=== PATIENT | male | born 1950 | race Caucasian/White ===

== ENCOUNTER 2017-05-05 06:03 | Day surgery (SDC) | payer BC ==
[2017-05-03 11:18] VITALS: BMI 25.0
[~2017-05-05 06:03] MED LIST: HEPARIN SODIUM,PORCINE 5,000 UNIT/ML 1 ML VIAL SQ ONE; ceFAZolin 2 GM in SODIUM CHLORIDE 0.9% 100 ML IVPB ONE
[2017-05-05] MEDS ORDERED: ONDANSETRON 4 MG/2 ML VIAL IVP ONE (06:19)
[2017-05-05] MEDS ORDERED: DEXAMETHASONE SOD PHOSPHATE 10 MG/ML 1 ML VIAL IV ONE (06:19)
[2017-05-05] MEDS ORDERED: MIDAZOLAM 2 MG/2 ML VIAL IV PRN (06:19)
[2017-05-05] MEDS ORDERED: HYDROmorphone 1 MG/ML 1 ML SYRINGE IVP PRN (06:19)
[2017-05-05 06:22] VITALS: TEMP 98
[2017-05-05] MEDS: LACTATED RINGERS 1,000 ML IV SCH ×2 (06:39→13:20)
[2017-05-05] MEDS ORDERED: LIDOCAINE 1% 20 ML VIAL (10MG/ML) FOR IV START INTRADERMA ONE (06:48)
[2017-05-05] MEDS ORDERED: PROPOFOL 10 MG/ML 20 ML VIAL IV ONE (07:38)
[2017-05-05] MEDS ORDERED: fentaNYL (PF) 50 MCG/ML 2 ML AMP ONE (07:38)
[2017-05-05] MEDS ORDERED: GLYCOPYRROLATE 0.2 MG/ML 2 ML VIAL ONE (07:38)
[2017-05-05] MEDS ORDERED: NEOSTIGMINE 1 MG/ML 10 ML VIAL ONE (07:38)
[2017-05-05] MEDS ORDERED: MIDAZOLAM 2 MG/2 ML VIAL ONE (07:38)
[2017-05-05] MEDS ORDERED: VECURONIUM 10 MG VIAL IV ONE (07:38)
[2017-05-05] MEDS ORDERED: SUCCINYLCHOLINE CHLORIDE 100 MG/5 ML SYR IV ONE (07:38)
[2017-05-05] MEDS ORDERED: LIDOCAINE 1% INJ 10MG/ML (20 ML MDV) ONE (07:38)
[2017-05-05] MEDS ORDERED: BUPIVACAINE-EPI 0.5%-1:200,000 10 ML VIAL SQ ONE (08:22)
[2017-05-05] MEDS ORDERED: LACTATED RINGERS 1,000 ML IV ONE ×2 (10:24→15:18)
[2017-05-05 11:03] VITALS: RESP 16
[2017-05-05 15:58] VITALS: BP 133/75; PULSE 55
--- NOTE | 2017-05-08 12:06 | P.OP ---
Date of Procedure: 05/05/17 Preoperative Diagnosis: Recurrent left inguinal hernia Postoperative Diagnosis: Recurrent left inguinal hernia -sliding type containing sigmoid colon Right indirect inguinal hernia Procedure(s) Performed: Robotic assisted laparoscopic bilateral inguinal hernia repair with mesh Implants: Parietex Progrip 10x15 cm right and left Anesthesia: BECKIE, local Surgeon: Jacki Mejia Estimated Blood Loss (ml): 10 Pathology: none sent Condition: stable Disposition: PACU Indications for Procedure: 67 years old male presents with left recurrent inguinal hernia. Prior history of laparoscopic left inguinal hernia repair. Hernia is reducible. Patient unsure about prior hernia repair was with mesh or not. Operative Findings: Recurrent large left inguinal hernia containing sigmoid colon. No mesh could be identified. Smaller right indirect inguinal hernia Description of Procedure: The patient was brought to the operating room and placed in supine position. General anesthesia with endotracheal intubation was performed as per anesthesia team. Both arms were tucked against the abdominal wall and a shunt was positioned in lithotomy using yellowfin stirrups. A lloyd catheter was inserted under sterile aseptic precautions. Chlorhexidine was used to prep the skin followed by application of sterile drapes and Ioban dressing. A timeout was performed to verify correct patient, correct procedure and correct side. Patient was confirmed to receive perioperative IV antibiotics, subcutaneous heparin 5000 units and bilateral SCDs were placed. A 2 mm skin incision was made in the left subcostal area and Veress needle was inserted to establish pneumoperitoneum to a pressure of 15 mmHg. A 1.5 cm supraumbilical incision was made which was deepened through the subcutaneous tissue . Two additional 8 mm skin incisions were made on either side of the midline approximately 8 cm away. A 5 mm 30 laparoscope was used to enter the peritoneum using direct Optiview technique. A 12 mm robotic trocar was inserted in the supraumbilical area and 8 mm robotic trocars were inserted on either side of the midline. The patient was placed in Trendelenburg position and the robot was brought in between the legs. The robotic arms including the camera arm were docked on the trocars. The robotic prograsp and monopolar scissors were introduced via arm 1 and 2 respectively. Upon inspection of the peritoneal cavity, bilateral indirect hernias identified. The right hernia contained incarcerated sigmoid colon which was reduced using gentle traction and countertraction. The gomez anatomical landmarks including the pubic symphysis, median and medial umbilical ligaments and bilateral epigastric vessels were identified. Attention was focused on the left side first. Using monopolar scissors a peritoneal flap was created extending medially from the median umbilical ligament and laterally to the direct hernia space. Using gentle traction and countertraction the flap was developed posteriorly. Loose fibrofatty tissue was bluntly dissected. Medially the dissection was carried along the Mitchell's ligament till pubic tubercle was identified. Care was taken to stay away from the urinary bladder. Dissection was carried out to leave the epigastric vessels against the anterior abdominal wall and laterally beyond the hernia defect. The indirect hernia sac was completely reduced. The iliofemoral vessels were identified. The peritoneal reflection overlying the spermatic cord was also dissected off. Care was taken not to injure any gonadal vessels or spermatic cord. Enough inferior dissection was carried out 2 cm below the hernia defect. No direct hernia noted. No evidence of prior mesh placement. The peritoneum was friable and tore at various points which were all repaired using 3-0 Vicryl Attention was then focused on the right side where similar dissection was performed to identify the above-mentioned gomez anatomical landmarks. Gentle traction and countertraction helped in reduction of the hernia sac. No bleeding was encountered. The iliofemoral vessels, spermatic cord and vas deferens were protected at all times. Right inferior epigastric artery had a branch looping on the medial aspect which was ligated using surgical clips Oxyntix progrip mesh 10x15 cm was rolled and introduced through the 8mm camera port. The right mesh was placed in the preperitoneal cavity with green portion overlying the pubic tubercle . The mesh was rolled upwards so that the mesh covered the direct , indirect inguinal hernia and the femoral hernia space without any kinks or folds. Similarly left progrip mesh was rolled and introduced through the 8mm camera port and secured over the right direct, indirect and femoral hernia space. The peritoneal flap was then sutured to the cut edge of the peritoneum using continuous 2-0 V lock sutures. The hernia sacs were completely reduced and the mesh lay flat without any kinks or folds. The robotic arms were then undocked and 30 degree laparoscope was inserted. All the needles were removed from the abdominal cavity. The 12mm camera trocar site was closed with 2 transfascial sutures of 0 Vicryl. The sponge, instrument and needle count were correct x2. The skin was closed with interrupted sutures of 4-0 Monocryl. Dermabond skin glue was applied followed by Telfa and Tegaderm dressing. Lloyd catheter was removed and scrotum was palpated to confirm the position of the testicles. The patient tolerated the procedure well and was taken to post anesthesia care unit in stable condition
== END 2017-05-05 17:12 | disposition home or self-care (01) ==
LOC: OR 06:03
PROVIDERS: ATTEND Surgery
DX: K40.91 Unilateral inguinal hernia, without obstruction or gangrene, recurrent (principal); K40.30 Unilateral inguinal hernia, with obstruction, without gangrene, not specified as recurrent; R05 Cough; N40.0 Benign prostatic hyperplasia without lower urinary tract symptoms; Z79.899 Other long term (current) drug therapy
CPT/HCPCS: 49651; 49650; C1781; J2250; J1644; J1100; J2710; J0690; J2405; J2001; J3010; J0330; J2704

== ENCOUNTER → 2019-04-03 | Outpatient (CLI) | payer BC ==
[2019-04-03 16:58] LABS: Basophils # (A) 0.1 k/uL (0-0.2); Basophils % (A) 1 %; Eosinophils # (A) 0.2 k/uL (0-0.7); Eosinophils % (A) 2 %; HCT 49.1 % (39.0-53.0); HGB 16.2 gm/dL (13.0-17.5); Lymphocytes # (A) 1.8 k/uL (1.0-4.8); Lymphocytes % (A) 20 %; MCH 29.4 pg (25.0-35.0); MCHC 32.9 g/dL (31.0-37.0); MCV 89.3 fL (80.0-100.0); Mean Platelet Volume 7.4; Monocytes # (A) 0.6 k/uL (0-1.0); Monocytes % (A) 7 %; Neutrophils % (A) 68 %; Platelet Count 234 k/uL (150-450); RDW 14.7 % (11.5-15.5); WBC 8.8 k/uL (3.8-10.6)
[2019-04-03 17:07] LABS: Albumin 4.5 g/dL (3.5-5.0); Calcium 9.9 mg/dL (8.4-10.2); Potassium 4.5 mmol/L (3.5-5.1); Total Bilirubin 0.7 mg/dL (0.2-1.3); Total Protein 7.4 g/dL (6.3-8.2)
[2019-04-03 17:10] LABS: Appearance,Urine Cloudy (Clear); Bacteria,Urine Rare /hpf; Bilirubin,Urine Negative (Negative); Blood,Urine Negative (Negative); Color,Urine Yellow; Glucose,Urine (UA) Negative (Negative); Ketones,Urine Negative (Negative); Leukocyte Esterase,Urine Large (Negative); Mucus,Urine Occasional /hpf; Nitrite,Urine Negative (Negative); PH, Urine 5.5 (5.0-8.0); Protein,Urine Trace (Negative); RBC,Urine 14 /hpf (0-5); Specific Gravity,Urine 1.018 (1.001-1.035); Urobilinogen,Urine <2.0 mg/dL (<2.0); WBC,Urine >182 /hpf (0-5)
== END | disposition home or self-care (01) ==
LOC: LABPAT 16:18
PROVIDERS: ATTEND Urology
DX: Z01.812 Encounter for preprocedural laboratory examination (principal); N40.1 Benign prostatic hyperplasia with lower urinary tract symptoms; R35.0 Frequency of micturition; Z79.899 Other long term (current) drug therapy
CPT/HCPCS: 36415; 80053; 81001; 85025; 87086

== ENCOUNTER 2019-04-10 09:19 | Day surgery (SDC) | payer BC ==
[2019-04-05 17:19] VITALS: BMI 25.4
--- NOTE | 2019-04-09 19:47 | P.GSHP ---
History of Present Illness H&P Date: 04/09/19 69 yo male with obstructive voidinginsymptoms that has failed flomax bid and finasteride who comes for a bipolar turp the risks complications and alternatives have been explained. - Constitutional Constitutional: Denies chills, Denies fever - EENT Eyes: denies blurred vision, denies pain Ears, nose, mouth and throat: Denies headache, Denies sore throat - Cardiovascular Cardiovascular: Denies chest pain, Denies shortness of breath - Respiratory Respiratory: Denies cough, Denies 7 - Gastrointestinal Gastrointestinal: Denies abdominal pain, Denies diarrhea, Denies nausea, Denies vomiting - Genitourinary (Female) Genitourinary: Denies dysuria, Denies hematuria - Genitourinary (Male) Genitourinary: Denies dysuria, Denies hematuria - Musculoskeletal Musculoskeletal: Denies myalgias - Integumentary Integumentary: Denies pruritus, Denies rash - Neurological Neurological: Denies numbness, Denies weakness - Psychiatric Psychiatric: Denies anxiety, Denies depression - Endocrine Endocrine: Denies fatigue, Denies weight change Past Medical History Past Medical History: Hyperlipidemia, Prostate Disorder Additional Past Medical History / Comment(s): BPH, OCC DYSURIA. History of Any Multi-Drug Resistant Organisms: None Reported Past Surgical History: Hernia Repair Past Anesthesia/Blood Transfusion Reactions: No Reported Reaction Smoking Status: Never smoker - Past Family History Sister(s) Family Medical History: Cancer Additional Family Medical History / Comment(s): THROAT CA Medications and Allergies Home Medications Medication Instructions Recorded Confirmed Type Finasteride [Proscar] 5 mg PO HS 05/03/17 04/05/19 History Tamsulosin [Flomax] 0.4 mg PO HS 05/03/17 04/05/19 History Multivitamins, Thera [Multivitamin 1 tab PO DAILY 04/05/19 04/05/19 History (formulary)] Allergies Allergy/AdvReac Type Severity Reaction Status Date / Time No Known Allergies Allergy Verified 04/05/19 16:59 Surgical - Exam - General well nourished, no distress - Eyes PERRL - ENT no hearing loss - Neck no masses, trachea midline - Respiratory normal expansion, normal respiratory effort - Cardiovascular Rhythm: regular - Abdomen Abdomen: soft, non tender - Genitourinary prostate 40 gm benign normal penis with no external lesions, testicles present - Rectum Rectum: normal sphincter tone - Integumentary no rash, no growths - Neurologic normal coordination - Musculoskeletal normal gait, normal posture - Psychiatric oriented to time, oriented to person, oriented to place, speech is normal, memory intact Assessment and Plan Assessment: Impression: Bph with obstruction PLAN Bipolar turp
[~2019-04-10 09:19] MED LIST changes: +AMPICILLIN 1,000 MG in SODIUM CHLORIDE 0.9% 50 ML IVPB ONE; +DEXAMETHASONE SOD PHOSPHATE 10 MG/ML 1 ML VIAL IV ONE; +GENTAMICIN 120 MG in SODIUM CHLORIDE 0.9% 100 ML IVPB ONE; -HEPARIN SODIUM,PORCINE 5,000 UNIT/ML 1 ML VIAL SQ ONE; +HYDROmorphone 0.5 MG/0.5 ML SYRINGE IVP PRN; +LACTATED RINGERS 1,000 ML IV SCH; +LIDOCAINE 1% 20 ML VIAL (10MG/ML) FOR IV START INTRADERMA PRN; +MIDAZOLAM 2 MG/2 ML VIAL IV PRN; +ONDANSETRON 4 MG/2 ML VIAL IVP ONE; -ceFAZolin 2 GM in SODIUM CHLORIDE 0.9% 100 ML IVPB ONE; +fentaNYL (PF) 50 MCG/ML 2 ML AMP IV PRN
[2019-04-10] MEDS ORDERED: PROPOFOL 10 MG/ML 20 ML VIAL IV ONE (11:01)
[2019-04-10] MEDS ORDERED: LIDOCAINE 1% INJ 10MG/ML (20 ML MDV) ONE (11:01)
[2019-04-10] MEDS ORDERED: ePHEDrine SULFATE/0.9% NACL/PF 50 MG/5 ML SYRINGE IV ONE (11:01)
[2019-04-10] MEDS ORDERED: MIDAZOLAM 2 MG/2 ML VIAL ONE (11:01)
[2019-04-10] MEDS ORDERED: GLYCOPYRROLATE 0.2 MG/ML 2 ML VIAL ONE (11:01)
[2019-04-10] MEDS ORDERED: fentaNYL (PF) 50 MCG/ML 2 ML AMP ONE (11:01)
--- NOTE | 2019-04-10 12:28 | P.OP ---
Date of Procedure: 04/10/19 Preoperative Diagnosis: BPH with obstruction Postoperative Diagnosis: Same plus bladder stones Procedure(s) Performed: Cystoscopy with cystolithotripsy, TURP bipolar Anesthesia: BECKIE Surgeon: Dennis Baca Estimated Blood Loss (ml): 50 Pathology: other (Bladder stones, prostate) Condition: stable Disposition: PACU Indications for Procedure: The patient is 69. He has obstructive voiding symptoms despite maximum medication. He comes for TURP Description of Procedure: The patient is brought to the operating suite. He is given a successful general endotracheal anesthesia. He's placed lithotomy position with sterile prep and drape. Under direct vision the 25-Ukrainian sheath and direct vision obturator and Foroblique lenses introduced in the urethra is normal the prostate shows trilobar obstruction with marked lateral lobe obstruction. Upon entering the bladder there several smaller bladder stones. With the cup biopsy forceps the stones are broken. I then drain them out of the bladder. With the Cali resectoscope the super sect bipolar loop I resect the prostate. I first resect the middle lobe. I then resect the left lateral lobe from 12:00 to 6:00 from bladder neck to verumontanum. I do the same with the right lateral lobe. I then resect the redundant floor tissue. I irrigate the bladder of prostatic chips. I reinspected the bladder there is no remaining prostatic chips. The prosthetic bleeding has been controlled electrocautery. I removed the resectoscope and coud the bladder with a good strong stream. An 18-Ukrainian coud-tip catheter is introduced in the bladder with clear urine return. Patient's awake and returned recovery in good condition. He tolerated the procedure well be discharged home upon recovery and found the office in 48 hours for catheter removal.
[2019-04-10 12:36] VITALS: TEMP 97.4
[2019-04-10 13:20] VITALS: RESP 16
[2019-04-10 13:34] VITALS: PULSE 60
[2019-04-10 13:49] VITALS: BP 138/81
== END 2019-04-10 14:27 | disposition home or self-care (01) ==
LOC: OR 09:19
PROVIDERS: ATTEND Urology
DX: N40.1 Benign prostatic hyperplasia with lower urinary tract symptoms (principal); N13.8 Other obstructive and reflux uropathy; R30.0 Dysuria; N21.0 Calculus in bladder; E78.5 Hyperlipidemia, unspecified; Z80.0 Family history of malignant neoplasm of digestive organs; Z79.899 Other long term (current) drug therapy
CPT/HCPCS: 88305; 82365; 52601; 52317; J2250; J1100; J2405; J2001; J3010; J1580; J0290; J2704

== ENCOUNTER → 2020-02-24 | Outpatient (CLI) | payer BC | END | disposition home or self-care (01) | LOC: CPPFTMAIN 10:18 | PROVIDERS: ATTEND Internal Medicine Critical Care Medicine | DX: R05 Cough (principal) | CPT/HCPCS: 94060; 94726; 94729 ==

== ENCOUNTER → 2021-07-20 | Outpatient (CLI) | payer BC, MEDICARE ==
--- NOTE | 2021-07-20 10:00 | P.PN ---
Progress Note - Text Progress Note Date: 07/20/21 5 meter walk test completed: #1 4.29 sec #2 4.26 sec #3 3.88 sec Patient tolerated well without difficulty, no chest pain or shortness of breath. Patient instructed to stop prasugrel (last dose confirmed 07/19/21) and start lovenox BID until day before surgery for bridge, last dose should be 07/25/21 in the morning, this was discussed with the patient and he is agreeable. Teaching done with patient regarding SQ injection, patient able to return demonstration.
[2021-07-20 10:04] LABS: HCT 48.5 % (39.0-53.0); HGB 15.9 gm/dL (13.0-17.5); MCH 30.3 pg (25.0-35.0); MCHC 32.8 g/dL (31.0-37.0); MCV 92.2 fL (80.0-100.0); Mean Platelet Volume 7.9; Platelet Count 256 k/uL (150-450); RBC 5.26 m/uL (4.30-5.90); WBC 7.6 k/uL (3.8-10.6)
[2021-07-20 10:16] LABS: INR 0.9 (<1.2); Partial Thromboplastin Time 24.9 sec (22.0-30.0); Prothrombin Time 9.9 sec (9.0-12.0)
[2021-07-20 11:07] LABS: Appearance,Urine Cloudy (Clear); Bacteria,Urine Rare /hpf; Bilirubin,Urine Negative (Negative); Blood,Urine Negative (Negative); Color,Urine Yellow; Glucose,Urine (UA) Negative (Negative); Ketones,Urine Negative (Negative); Leukocyte Esterase,Urine Large (Negative); Mucus,Urine Rare /hpf; Nitrite,Urine Negative (Negative); PH, Urine 5.5 (5.0-8.0); Protein,Urine Trace (Negative); RBC,Urine 3 /hpf (0-5); Urobilinogen,Urine <2.0 mg/dL (<2.0); WBC,Urine >182 /hpf (0-5)
[2021-07-20 11:13] LABS: Albumin 4.2 g/dL (3.5-5.0); Magnesium 1.9 mg/dL (1.6-2.3); Total Bilirubin 0.9 mg/dL (0.2-1.3)
--- NOTE | 2021-07-20 14:04 | XR ---
EXAMINATION TYPE: XR chest 2V DATE OF EXAM: 07/20/2021 COMPARISON: NONE HISTORY: Preop open heart surgery TECHNIQUE: Frontal and lateral views of the chest are obtained. FINDINGS: There is no focal air space opacity, pleural effusion, or pneumothorax seen. The cardiac silhouette size is within normal limits. There is eventration of the right hemidiaphragm. The aorta is dense. The osseous structures are intact. IMPRESSION: No acute cardiopulmonary process.
[2021-07-20 15:37] LABS: Hepatitis A Antibody IgM Nonreactive (Nonreactive); Hepatitis B Core IgM Nonreactive (Nonreactive); Hepatitis B Surface Antigen Nonreactive (Nonreactive); Hepatitis C IgG Antibody Nonreactive (Nonreactive)
[2021-07-20 20:37] LABS: Chol/HDL Ratio 2.37 Ratio; HDL Cholesterol 42.6 mg/dL (40.00-60.00); LDL Cholesterol,Calculated 43.5 mg/dL (0.0-131.0); Triglycerides 74.7 mg/dL (0.00-149.00); VLDL Calculation 14.94 mg/dL (5.00-40.00)
--- NOTE | 2021-07-21 13:39 | P.ARTDOP ---
Arterial Doppler LOWER EXTREMITY ARTERIAL DOPPLER: DATE OF SERVICE: 07/20/2021 Reason for study: Preop CABG. Doppler waveforms: Multiphasic bilaterally throughout. Pulse volume recording: []. Pressure gradients: None. Ankle-brachial indices: Greater than 1. Toe brachial indices: [] on the right, [] on the left Impression: Normal study.
--- NOTE | 2021-07-21 13:41 | P.VSCSTY ---
Greater Saphenous Vein Mapping This is bilateral lower extremity greater saphenous vein mapping. Date of service: 07/20/2021 Vein quality and ultrasound appearance: We see no intraluminal thrombus or obvious wall changes. Vein size groin right : 4.4 x 3.9 groin left: 5.6 x 5.8 High thigh right: 3.3 x 3.2 high thigh left: 4.3 x 4.1 Mid thigh right: 3.7 x 4.0 mid thigh left: 3.9 x 4.5 Above-knee right: 2.6 x 3.2 above- knee left: 3.6 x 3.8 Below knee right: 2.6 x 2.6 below-knee left: 3.3 x 3.6 Mid calf right: 2.6 x 3.1 mid calf left: 3.2 x 3.2 Ankle right: 3.0 x 2.7 ankle left: 3.1 x 2.9 Impression: Usable bilateral greater saphenous vein.
== END | disposition home or self-care (01) ==
LOC: LABPAT 08:11
PROVIDERS: ATTEND Surgery
DX: I25.10 Atherosclerotic heart disease of native coronary artery without angina pectoris (principal); R05.9 Cough, unspecified; Z79.01 Long term (current) use of anticoagulants; I25.2 Old myocardial infarction
CPT/HCPCS: 36415; 71046; 80053; 80061; 80074; 81001; 83036; 83735; 84443; 85027; 85610; 85730; 87070; 87077; 87086; 87186; 93922; 93923; 93930; 93970; 94150

== ENCOUNTER 2021-07-26 08:00 | Inpatient (IN) | payer BC, MEDICARE ==
[2021-07-28] MEDS ORDERED: ELECTROLYTE-A SOLUTION 1,000 ML with POTASSIUM CHLORIDE 100 MEQ, MAGNESIUM SULFATE 16 M... IV ONE ×5 (06:00)
[2021-07-28] MEDS ORDERED: NITROGLYCERIN-D5W PMX 25 MG/250 ML BTL IV ONE (06:00)
[2021-07-28] MEDS ORDERED: NOREPINEPHRINE 4 MG in SODIUM CHLORIDE 0.9% 250 ML IV ONE (06:00)
[2021-07-28] MEDS ORDERED: INSULIN REGULAR 100 UNIT in SODIUM CHLORIDE 0.9% 100 ML IV ONE (06:00)
[2021-07-28] MEDS ORDERED: ATORVASTATIN 10 MG TAB PO ONE (06:00)
[2021-07-28] MEDS ORDERED: CHLORHEXIDINE GLUCONATE 15 ML CUP MUCOUS MEM ONE (06:00)
[2021-07-28] MEDS ORDERED: ASPIRIN 325 MG TAB PO ONE (06:00)
[2021-07-28] MEDS ORDERED: TRANEXAMIC ACID 2,000 MG in SODIUM CHLORIDE 0.9% 80 ML IV ONE ×4 (06:00)
[2021-07-28] MEDS ORDERED: PROTAMINE SULFATE 250 MG in EMPTY BAG 1 BAG IV ONE (06:00)
[2021-07-28] MEDS ORDERED: ALBUMIN HUMAN 25% 50 ML IV ONE (06:00)
[2021-07-28] MEDS ORDERED: PHENYLEPHRINE 10 MG/ML VIAL IV ONE (06:00)
[2021-07-28] MEDS ORDERED: CALCIUM CHLORIDE 100 MG/ML 10 ML SYRINGE IV ONE (06:00)
[2021-07-28] MEDS ORDERED: PAPAVERINE 360 MG in SODIUM CHLORIDE 0.9% 90 ML IV ONE (06:00)
[2021-07-28] MEDS ORDERED: NITROGLYCERIN SL TABS 0.4 MG TAB SUBLINGUAL ONE (06:00)
[2021-07-28] MEDS ORDERED: ELECTROLYTE-A SOLUTION 1,000 ML with POTASSIUM CHLORIDE 40 MEQ, MAGNESIUM SULFATE 16 ME... IV ONE ×5 (06:00)
[2021-07-28] MEDS ORDERED: HEPARIN SODIUM,PORCINE 5,000 UNIT in SODIUM CHLORIDE 0.9% 500 ML 500 ML IV ONE (06:00)
[2021-07-28] MEDS ORDERED: SODIUM CHLORIDE 0.9% 1,000 ML IV ONE (06:00)
[2021-07-28] MEDS ORDERED: LACTATED RINGERS 1,000 ML IV ONE (06:00)
[2021-07-28] MEDS ORDERED: MANNITOL 25% 12.5 GM/50 ML VIAL IV ONE (06:00)
[2021-07-28] MEDS ORDERED: MUPIROCIN 2% OINT 22 GM TUBE NASAL ONE (06:00)
[2021-07-28] MEDS ORDERED: METOPROLOL TARTRATE 12.5 MG TAB PO ONE (06:00)
[2021-07-28] MEDS ORDERED: NITROGLYCERIN-D5W PMX 50 MG in DEXTROSE/WATER 1 250ML.BAG IV ONE (06:00)
[2021-07-28] MEDS ORDERED: PHENYLEPHRINE 40 MG in SODIUM CHLORIDE 0.9% 250 ML IV ONE (06:00)
[2021-07-28] MEDS ORDERED: CLEVIDIPINE BUTYRATE 25 MG in EMPTY BAG 1 BAG IV ONE (06:00)
[2021-07-28] MEDS ORDERED: propofoL 1,000 MG/100 ML VIAL IV ONE (06:00)
[2021-07-28] MEDS ORDERED: MAGNESIUM SULFATE 16.24 MEQ in EMPTY SYRINGE 1 SYR IV ONE (06:00)
[2021-07-28] MEDS ORDERED: PROTAMINE SULFATE 10 MG/ML 25 ML VIAL IV ONE ×2 (06:00→07:55)
[2021-07-28] MEDS ORDERED: ALBUMIN HUMAN 5% 500 ML IVPB ONE (06:00)
[2021-07-28] MEDS ORDERED: SODIUM BICARB 8.4% 50 ML SYR (1 MEQ/ML) IV ONE (06:00)
[2021-07-28] MEDS ORDERED: DILTIAZEM 125 MG in SODIUM CHLORIDE 0.9% 100 ML IV ONE (06:00)
[2021-07-28] MEDS ORDERED: HEPARIN SODIUM 1,000 UN/ML (10ML VL) IV ONE (06:00)
[2021-07-28] MEDS ORDERED: LIDOCAINE 1% (10MG/ML) FOR IV START INTRADERMA ONE (06:17)
[2021-07-28] MEDS ORDERED: HEPARIN SODIUM,PORCINE 10,000 UNIT/ML 1 ML VIAL ONE (07:55)
[2021-07-28] MEDS ORDERED: fentaNYL (PF) 50 MCG/ML 50 ML VIAL ONE (07:55)
[2021-07-28] MEDS ORDERED: TRANEXAMIC ACID 1,000 MG/10 ML VIAL ONE (07:55)
[2021-07-28] MEDS ORDERED: SODIUM CHLORIDE 0.9% IRRIG 1,000 ML BTL IRRIGATION ONE (07:55)
[2021-07-28] MEDS ORDERED: MIDAZOLAM 2 MG/2 ML VIAL ONE (07:55)
[2021-07-28] MEDS ORDERED: LIDOCAINE 2% SYG (PF) 100 MG/5 ML ONE (07:55)
[2021-07-28] MEDS ORDERED: SODIUM CHLORIDE 0.9% 250 ML BAG ONE (07:55)
[2021-07-28] MEDS ORDERED: ePHEDrine 50 MG/ML 1 ML AMP ONE (07:55)
[2021-07-28] MEDS ORDERED: PROPOFOL 10 MG/ML 20 ML VIAL IV ONE (07:55)
[2021-07-28] MEDS ORDERED: ALBUMIN HUMAN 5% (25gm) 500 ML VIAL IVPB ONE (07:55)
[2021-07-28] MEDS ORDERED: VECURONIUM 10 MG VIAL IV ONE (07:55)
[2021-07-28] MEDS ORDERED: NITROGLYCERIN-D5W PMX 50 MG/250 ML BOTTLE IV ONE (07:55)
[2021-07-28] MEDS ORDERED: MAGNESIUM SULFATE 4 MEQ/ML 10ML VIAL ONE (07:55)
[2021-07-28] MEDS ORDERED: ELECTROLYTE-R (PH 7.4) 1,000 ML IV.SOLN IV ONE (07:55)
[2021-07-28] MEDS ORDERED: SUCCINYLCHOLINE CHLORIDE 100 MG/5 ML SYR IV ONE (07:55)
[2021-07-28] MEDS: ceFAZolin 1,000 MG in SODIUM CHLORIDE 0.9% IRRIGATIO 1,000 ML IRRIGATION ONE (10:22)
[2021-07-28] MEDS ORDERED: AMIODARONE 450 MG in DEXTROSE 5% IN WATER 250 ML IV PRN ×2 (13:51)
[2021-07-28] MEDS ORDERED: METOCLOPRAMIDE 5 MG/ML 2 ML VIAL IVP PRN (13:51)
[2021-07-28] MEDS ORDERED: INSULIN REGULAR 100 UNIT in SODIUM CHLORIDE 0.9% 100 ML IV SCH (13:51)
[2021-07-28] MEDS ORDERED: DEXTROSE 5% IN WATER 100 ML with AMIODARONE 150 MG IV PRN (13:51)
[2021-07-28] MEDS ORDERED: KETOROLAC 15 MG/ML 1 ML VIAL IVP PRN (13:51)
[2021-07-28] MEDS ORDERED: BENZOCAINE/MENTHOL LOZENG 1 EACH LOZENGE MUCOUS MEM PRN (13:51)
[2021-07-28] MEDS ORDERED: DEXMEDETOMIDINE/0.9% NACL(PMX) 400 MCG in EMPTY BAG 1 BAG IV SCH (13:51)
[2021-07-28] MEDS ORDERED: Magnesium Replacement Protocol 1 EACH MISC MISCELLANE PRN (13:51)
[2021-07-28] MEDS ORDERED: AMIODARONE 360 MG in DEXTROSE 5% IN WATER 200 ML IV PRN ×2 (13:51)
[2021-07-28] MEDS ORDERED: CLEVIDIPINE BUTYRATE 25 MG in EMPTY BAG 1 BAG IV SCH (13:51)
[2021-07-28] MEDS ORDERED: NITROGLYCERIN-D5W PMX 50 MG in DEXTROSE/WATER 1 250ML.BAG IV SCH (13:51)
[2021-07-28] MEDS ORDERED: Phosphorus Replacement Protoco 1 EACH MISC MISCELLANE PRN (13:51)
[2021-07-28] MEDS ORDERED: IPRATROPIUM-ALBUTEROL 3 ML NEB INHALATION PRN (13:51)
[2021-07-28] MEDS ORDERED: Potassium Replacement Protocol 1 EACH MISC MISCELLANE PRN (13:51)
[2021-07-28] MEDS ORDERED: hydrALAZINE HCL 20 MG/ML 1 ML VIAL IVP PRN (13:51)
[2021-07-28] MEDS ORDERED: ONDANSETRON 4 MG/2 ML VIAL IVP PRN (13:51)
[2021-07-28 14:12] LABS: Glucose,Whole Blood 114 mg/dL (75-99)
--- NOTE | 2021-07-28 14:20 | XR ---
EXAMINATION TYPE: XR chest 1V portable DATE OF EXAM: 07/28/2021 COMPARISON: 07/20/2021 HISTORY: Postop cardiac surgery TECHNIQUE: Single frontal view of the chest is obtained. FINDINGS: ET and NG tube noted and there is mediastinal drain and left-sided chest tube. Subcutaneou s emphysema. No sizable pneumothorax. Left upper lobe and lower lobe subsegmental consolidation sugge stive of atelectasis. Heart size normal. Postsurgical changes are seen. ET tube approximately 3.5 cm above stanley. NG tube seen extending into the abdomen likely within the gastric body. IMPRESSION: 1. Postoperative change with suspected postoperative atelectasis and subcutaneous emphysema. No sizab le pneumothorax.
[2021-07-28 14:22] LABS: Basophils % (A) 0 %; Eosinophils % (A) 0 %; HCT 29.9 % (39.0-53.0); Lymphocytes # (A) 0.8 k/uL (1.0-4.8); Lymphocytes % (A) 7 %; MCHC 33.6 g/dL (31.0-37.0); MCV 89.2 fL (80.0-100.0); Mean Platelet Volume 9.3; Monocytes # (A) 0.5 k/uL (0-1.0); Monocytes % (A) 4 %; Neutrophils # (A) 10.4 k/uL (1.3-7.7); Neutrophils % (A) 88 %; RBC 3.35 m/uL (4.30-5.90); RDW 13.6 % (11.5-15.5); WBC 11.8 k/uL (3.8-10.6)
[2021-07-28 14:26] LABS: Ionized Calcium 4.2 mg/dL (4.5-5.3)
[2021-07-28 14:31] LABS: HGB 10.1 gm/dL (13.0-17.5); Platelet Count 124 k/uL (150-450)
[2021-07-28 14:36] LABS: ALT 79 U/L (4-49); AST 79 U/L (17-59); African American GFR (CKD) >90 (>60 ml/min/1.73 sqM); Albumin 2.9 g/dL (3.5-5.0); Alkaline Phosphatase 26 U/L (38-126); Anion Gap 9 mmol/L; Blood Urea Nitrogen 19 mg/dL (9-20); Calcium 7.3 mg/dL (8.4-10.2); Carbon Dioxide 21 mmol/L (22-30); Chloride 110 mmol/L (98-107); Glucose 112 mg/dL (74-99); Magnesium 2.5 mg/dL (1.6-2.3); Non-African American GFR(CKD) 86 (>60 ml/min/1.73 sqM); Sodium 140 mmol/L (137-145); Total Bilirubin 1.1 mg/dL (0.2-1.3); Total Protein 4.7 g/dL (6.3-8.2)
[2021-07-28 14:37] LABS: INR 1.1 (<1.2); Partial Thromboplastin Time 36.1 sec (22.0-30.0); Prothrombin Time 11.9 sec (9.0-12.0)
[2021-07-28 14:37] LABS: ABG Base Excess -0.5 mmol/L; ABG HCO3 25 mmol/L (21-25); ABG PCO2 44 mmHg (35-45); ABG PH 7.36 (7.35-7.45); ABG PO2 324 mmHg (83-108); ABG TCO2 26 mmol/L (19-24); Allen Test Performed? Yes
[2021-07-28] MEDS: LACTATED RINGERS 1,000 ML IV SCH (14:53)
[2021-07-28] MEDS: DILTIAZEM 125 MG in SODIUM CHLORIDE 0.9% 100 ML IV SCH (14:55)
[2021-07-28 15:00] LABS: Glucose,Whole Blood 101 mg/dL (75-99)
[2021-07-28] MEDS ORDERED: CALCIUM GLUCONATE 1 GM in SODIUM CHLORIDE 0.9% 100 ML IVPB ONE (15:02)
[2021-07-28] MEDS: ALBUMIN HUMAN 5% 250 ML in EMPTY BAG 1 BAG IVPB PRN ×2 (15:11→17:43)
--- NOTE | 2021-07-28 15:29 | P.CNPUL ---
History of Present Illness Consult date: 07/28/21 Chief complaint: CABG History of present illness: 71-year-old male patient with established coronary artery disease. Recently, the patient encounter some chest pain and diaphoresis. He went to an urgent care and subsequently was referred to the hospital he was found to have an acute ST segment elevation myocardial infarction the patient underwent stenting of his OM 2 branch in [facility]. At that time, cardiac catheterization showed a lso significant left main disease with triple-vessel involvement. He was scheduled to undergo coronary artery bypass surgery. His preop echocardiogram showed a preserved LV function with an ejection fraction of 50%. Patient was taken to the operating room today and the patient underwent a total four-vessel bypass and currently he is in the intensive care unit, sedated with propofol running at 25 mcg/kg per minute and the patient is intubated on a mechanical ventilator as the patient was kept on a respirator postop. At this point in time, the patient is an assist-control mode at the rate of 14, tidal volume of 500 FiO2 of 50% with a PEEP of 5. The postop blood gases showed a pH of 7.36 with a pCO2 of 43 and pO2 of 324 and this was done and FiO2 of 100% accordingly he was weaned down to 50%. The patient has a mediastinal and left pleural chest tube. The output from the left pleural chest tube has been 40 mL and previous chest tube has been around 60 mL since he arrived from the operating room. His cardiac rhythm is paced at the rate of 80. His underlying cardiac rhythm is sin us bradycardia and the rate of 40s. Urine output is in order of 80 mL an hour and is adequate for now. Pulmonary artery pressures are 21 over the 10 and his cardiac output is at 5.3 with an index of 2.5. He has a [place]-Irma catheter in his right IJ. Chest x-ray showed adequate expansion of both lungs. No evidence of any pneumothorax. He is on no pressors at this point in time. Most recent systolic blood pressure is 95 with a diastolic of 50. He is on lactated Ringer at the rate of 50 mL an hour and nitroglycerin and a 5 mg per minute and Cardizem at 5 mg/h. Review of Systems ROS unobtainable: due to mental status Past Medical History Past Medical History: Coronary Artery Disease (CAD), Myocardial Infarction (DC), Prostate Disorder Additional Past Medical History / Comment(s): hx HERNIA Last Myocardial Infarction Date:: 05-22-21 History of Any Multi-Drug Resistant Organisms: None Reported Past Surgical History: Heart Catheterization With Stent, Hernia Repair Additional Past Surgical History / Comment(s): TURP Past Anesthesia/Blood Transfusion Reactions: No Reported Reaction Additional Past Anesthesia/Blood Transfusion Reaction / Comment(s): no hx blood transfusion Date of Last Stent Placement:: 05-22-21 Smoking Status: Never smoker - Past Family History Sister(s) Family Medical History: Cancer Additional Family Medical History / Comment(s): THROAT CA Medications and Allergies Home Medications Medication Instructions Recorded Confirmed Type Multivitamins, Thera [Multivitamin 1 tab PO DAILY 04/05/19 07/28/21 History (formulary)] Aspirin 81 mg PO BID 07/20/21 07/28/21 History Atorvastatin [Lipitor] 40 mg PO DAILY 07/20/21 07/28/21 History Enoxaparin [Lovenox] 40 mg SQ Q12H #10 each 07/20/21 07/28/21 Rx Ezetimibe [Zetia] 10 mg PO DAILY 07/20/21 07/28/21 History Irbesartan 75 mg PO DAILY 07/20/21 07/28/21 History Metoprolol Tartrate [Lopressor] 12.5 mg PO DAILY 07/20/21 07/28/21 History Prasugrel [Effient] 10 mg PO DAILY 07/20/21 07/28/21 History Allergies Allergy/AdvReac Type Severity Reaction Status Date / Time No Known Allergies Allergy Verified 07/28/21 06:48 Physical Exam Vitals: Vital Signs Temp Pulse Pulse Resp BP BP Pulse Ox 07/28/21 15:00 80 15 100 07/28/21 14:30 80 15 100 07/28/21 14:00 96.4 F L 80 15 100 07/28/21 06:07 97.8 F 59 L 16 145/88 146/88 100 Intake and Output 07/28/21 07/28/21 07/28/21 06:59 14:59 22:59 Intake Total 50 103 Output Total 1450 Balance 50 -1347 Intake: IV 50 103 Output: Urine 550 Estimated Blood Loss 900 Other: Weight 87.5 kg ABP, PAP, CO, CI - Last 8 Hours Arterial Blood Pressure 95/51 Arterial Blood Pressure 92/46 Arterial Blood Pressure 103/51 Arterial Blood Pressure 94/46 Pulmonary Artery Pressure 18/11 Pulmonary Artery Pressure 22/12 Pulmonary Artery Pressure 19/8 Cardiac Output 6.4 Cardiac Index 3 Gen. appearance, comfortable, sedated, intubated on a mechanical ventilator, breathing is nonlabored and the patient is synchronous a mechanical ventilator Head exam was generally normal. There was no scleral icterus or corneal arcus. Mucous membranes were moist.Neck was supple and without jugular venous distension, thyromegaly, or carotid bruits. Carotids were easily palpable bilaterally. There was no adenopathy.The patient has a right IJ lung is In place. Also in place. Orotracheal and orogastric tube are both in place Lungs were clear to auscultation and percussion, and with normal diaphragmatic excursion. No wheezes or rales were noted. The thoracotomy scar is dry clean and intact and the patient is a mediastinal and left pleural chest tube Cardiac exam revealed the PMI to be normally situated and sized. The rhythm was regular and no extrasystoles were noted during several minutes of auscultation. The first and second heart sounds were normal and physiologic splitting of the second heart sound was noted. There were no murmurs, rubs, clicks, or gallops. The cardiac rhythmat this point in time the rate of 80 Abdominal exam revealed normal bowel sounds. The abdomen was soft, non-tender, and without masses, organomegaly, or appreciable enlargement of the abdominal aorta. Examination of the extremities revealed easily palpable radial, femoral and pedal pulses. There was no cyanosis, clubbing or edema. The surgical wound site over the left radial artery is dry clean and intact. The patient has equal and symmetrical pulses in all 4 extremities. Examination of the skin revealed no evidence of significant rashes, suspicious appearing nevi or other concerning lesions. Neurologically the patient is sedated. Results - Laboratory Findings CBC and BMP: 07/28/21 14:00 07/28/21 14:00 ABG ABG pH 7.36 (7.35-7.45) 07/28/21 14:34 ABG pCO2 44 mmHg (35-45) 07/28/21 14:34 ABG pO2 324 mmHg (83-108) H 07/28/21 14:34 ABG O2 Saturation 100.0 % (94-97) H 07/28/21 14:34 PT/INR, D-dimer PT 11.9 sec (9.0-12.0) 07/28/21 14:00 INR 1.1 (<1.2) 07/28/21 14:00 Abnormal lab findings: Abnormal Labs 07/20/21 07/28/21 07/28/21 09:00 14:00 14:00 WBC 11.8 H RBC 3.35 L Hgb 10.1 L D Hct 29.9 L Plt Count 124 L D Neutrophils # 10.4 H Lymphocytes # 0.8 L APTT 36.1 H ABG pO2 ABG Total CO2 ABG O2 Saturation Chloride Carbon Dioxide Glucose POC Glucose (mg/dL) Calcium Ionized Calcium Tiffany Magnesium AST ALT Alkaline Phosphatase Total Protein Albumin Crossmatch See Detail 07/28/21 07/28/21 07/28/21 14:00 14:10 14:34 WBC RBC Hgb Hct Plt Count Neutrophils # Lymphocytes # APTT ABG pO2 324 H ABG Total CO2 26 H ABG O2 Saturation 100.0 H Chloride 110 H Carbon Dioxide 21 L Glucose 112 H POC Glucose (mg/dL) 114 H Calcium 7.3 L Ionized Calcium Tiffany 4.2 L Magnesium 2.5 H AST 79 H ALT 79 H Alkaline Phosphatase 26 L Total Protein 4.7 L Albumin 2.9 L Crossmatch 07/28/21 14:59 WBC RBC Hgb Hct Plt Count Neutrophils # Lymphocytes # APTT ABG pO2 ABG Total CO2 ABG O2 Saturation Chloride Carbon Dioxide Glucose POC Glucose (mg/dL) 101 H Calcium Ionized Calcium Tiffany Magnesium AST ALT Alkaline Phosphatase Total Protein Albumin Crossmatch - Diagnostic Findings Chest x-ray: image reviewed Assessment and Plan Plan: 1 symptomatic multivessel coronary artery disease and the patient underwent four-vessel bypass surgery and the patient is currently paced postop day #1. The patient had THOMAS to LAD and radial arterial graft to to OM1, SVG to OM 2, SVG to PDA. Patient is postop day #0. The patient is hemodynamically stable on no pressors. The patient is on a Cardizem drip and nitroglycerin drip per protocol regarding radial artery harvesting for bypass.the patient's cardiac rhythm is at the rate of 80. Underlying rhythm is sinus bradycardia. 2 acute hypoxic respiratory failure, post thoracotomy and bypass surgery. Patient remains intubated on a mechanical ventilator. The patient has a thoracotomy scar in the patient has mediastinal left pleural chest tube. Output has been noted 3 known history of coronary artery disease with previous STEMI with stenting of OM 2 4 hyperlipidemia 5 chronic cough 6 environmental ALLERGIES 7 BPH Plan Patient is hemodynamic is stable Wean FiO2 down to 40% and keep the rest of the ventilator setting unchanged. He has an adequate pulmonate function tests. The patient should be able to extubated without any major difficulties. We'll gradually wean off the sedation and check weaning parameters and assess his candidacy to wean. Anticipate extubation within 6 hour window. Monitor hemodynamics Monitor the output from the chest tubes Keep the rhythm paced at the rate of 80 underlying cardiac rhythm is sinus bradycardia Aspirin and Plavix Chest x-ray noted and there is an adequate expansion of both lungs Blood work was noted We'll continue to follow
--- NOTE | 2021-07-28 15:53 | P.CRDCN ---
History of Present Illness Consult date: 07/28/21 History of present illness: This is a 71-year-old gentleman who was recently treated in [facility] for ST elevation myocardial infarction. Patient was at the time treated with stenting of the OM branch with drug-eluting stents by Dr. Regalado. He subsequently went and saw cardiac surgeon for further evaluation of the multivessel coronary artery disease. He was found to have left main disease with 60% distal stenosis and multiple lesion in the circumflex and right coronary artery. Patient had multivessel bypass surgery with THOMAS graft to the LAD, radial artery to the OM branch and also vein graft to the second OM and also PDA of the right coronary artery. Patient seemed to be hemodynamically stable. He is atrial paced at this time. Cardiac output is about 5.3 L. He is still in intubated. There is a chance that he could be extubated within next 6 hours. No arrhythmias noted. We'll follow along with you Review of Systems As per the chart Past Medical History Past Medical History: Coronary Artery Disease (CAD), Myocardial Infarction ([place]), Prostate Disorder Additional Past Medical History / Comment(s): hx HERNIA Last Myocardial Infarction Date:: 05-22-21 History of Any Multi-Drug Resistant Organisms: None Reported Past Surgical History: Heart Catheterization With Stent, Hernia Repair Additional Past Surgical History / Comment(s): TURP Past Anesthesia/Blood Transfusion Reactions: No Reported Reaction Additional Past Anesthesia/Blood Transfusion Reaction / Comment(s): no hx blood transfusion Date of Last Stent Placement:: 05-22-21 Smoking Status: Never smoker - Past Family History Sister(s) Family Medical History: Cancer Additional Family Medical History / Comment(s): THROAT CA Medications and Allergies Home Medications Medication Instructions Recorded Confirmed Type Multivitamins, Thera [Multivitamin 1 tab PO DAILY 04/05/19 07/28/21 History (formulary)] Aspirin 81 mg PO BID 07/20/21 07/28/21 History Atorvastatin [Lipitor] 40 mg PO DAILY 07/20/21 07/28/21 History Enoxaparin [Lovenox] 40 mg SQ Q12H #10 each 07/20/21 07/28/21 Rx Ezetimibe [Zetia] 10 mg PO DAILY 07/20/21 07/28/21 History Irbesartan 75 mg PO DAILY 07/20/21 07/28/21 History Metoprolol Tartrate [Lopressor] 12.5 mg PO DAILY 07/20/21 07/28/21 History Prasugrel [Effient] 10 mg PO DAILY 07/20/21 07/28/21 History Allergies Allergy/AdvReac Type Severity Reaction Status Date / Time No Known Allergies Allergy Verified 07/28/21 06:48 Physical Exam Vitals: Vital Signs Temp Pulse Pulse Resp BP BP Pulse Ox 07/28/21 15:00 80 15 100 07/28/21 14:30 80 15 100 07/28/21 14:00 96.4 F L 80 15 100 07/28/21 06:07 97.8 F 59 L 16 145/88 146/88 100 Intake and Output 07/28/21 07/28/21 07/28/21 06:59 14:59 22:59 Intake Total 50 103 Output Total 1450 Balance 50 -1347 Intake: IV 50 103 Output: Urine 550 Estimated Blood Loss 900 Other: Weight 87.5 kg ABP, PAP, CO, CI - Last 8 Hours Arterial Blood Pressure 95/51 Arterial Blood Pressure 92/46 Arterial Blood Pressure 103/51 Arterial Blood Pressure 94/46 Pulmonary Artery Pressure 18/11 Pulmonary Artery Pressure 22/12 Pulmonary Artery Pressure 19/8 Cardiac Output 6.4 Cardiac Index 3 GENERAL EXAM: Patient is intubated and sedated HEENT: Normocephalic. Normal reaction of pupils, equal size, normal range of extraocular motion. No erythema or exudates in the throat. NECK: No masses, no nuchal rigidity. CHEST: Postsurgical LUNGS: Admission breath sounds HEART: S1 and S2 normal with no audible mumurs or gallops. Regular rhythm, femorals equal on both sides.. ABDOMEN: No hepatosplenomegaly, normal bowel sounds, no guarding or rigidity. SKIN: No rashes CENTRAL NERVOUS SYSTEM: No focal deficits. EXTREMITIES: No cyanosis, clubbing or edema. Results 07/28/21 14:00 07/28/21 14:00 Cardiac Enzymes 07/28/21 Range/Units 14:00 AST 79 H (17-59) U/L Coagulation 07/28/21 Range/Units 14:00 PT 11.9 (9.0-12.0) sec APTT 36.1 H (22.0-30.0) sec CBC 07/28/21 Range/Units 14:00 WBC 11.8 H (3.8-10.6) k/uL RBC 3.35 L (4.30-5.90) m/uL Hgb 10.1 L D (13.0-17.5) gm/dL Hct 29.9 L (39.0-53.0) % Plt Count 124 L D (150-450) k/uL Comprehensive Metabolic Panel 07/28/21 Range/Units 14:00 Sodium 140 (137-145) mmol/L Potassium 4.0 (3.5-5.1) mmol/L Chloride 110 H (98-107) mmol/L Carbon Dioxide 21 L (22-30) mmol/L BUN 19 (9-20) mg/dL Creatinine 0.90 (0.66-1.25) mg/dL Glucose 112 H (74-99) mg/dL Calcium 7.3 L (8.4-10.2) mg/dL AST 79 H (17-59) U/L ALT 79 H (4-49) U/L Alkaline Phosphatase 26 L (38-126) U/L Total Protein 4.7 L (6.3-8.2) g/dL Albumin 2.9 L (3.5-5.0) g/dL Current Medications Generic Name Dose Route Start Last Admin Trade Name Freq PRN Reason Stop Dose Admin Hydrocodone Bitart/Acetaminophen 2 each 07/29/21 01:31 Hydrocodone/Apap 5-325mg 1 Each Tab PO Q4HR PRN Severe Pain Albuterol/Ipratropium 3 ml 07/28/21 13:51 Ipratropium-Albuterol 3 Ml Neb INHALATION RT-Q2H PRN Shortness Of Breath Or Wheezing Albuterol/Ipratropium 3 ml 07/28/21 16:00 Ipratropium-Albuterol 3 Ml Neb INHALATION 07/28/21 19:33 RT-Q4H DIAN Albuterol/Ipratropium 3 ml 07/28/21 20:00 Ipratropium-Albuterol 3 Ml Neb INHALATION RT-QID DIAN Aspirin 325 mg 07/29/21 09:00 Aspirin 325 Mg Tab PO DAILY [facility] Atorvastatin Calcium 40 mg 07/29/21 09:00 Atorvastatin 40 Mg Tab PO DAILY [facility] Benzocaine/Menthol 1 each 07/28/21 13:51 Benzocaine/Menthol Lozeng 1 Each Lozenge MUCOUS MEM Q2H PRN Sore Throat Bisacodyl 10 mg 07/29/21 09:00 Bisacodyl 10 Mg Supp RECTAL DAILY PRN Constipation Clopidogrel Bisulfate 75 mg 07/29/21 09:00 Clopidogrel 75 Mg Tab PO DAILY DIAN Heparin Sodium (Porcine) 5,000 unit 07/28/21 16:00 Heparin Sodium,Porcine/Pf 5,000 Unit/0.5 Ml Syringe SQ Q8HR DIAN Hydralazine HCl 10 mg 07/28/21 13:51 Hydralazine Hcl 20 Mg/Ml 1 Ml Vial IVP Q1H PRN Blood Pressure - High Amiodarone HCl 150 mg/ 103 mls @ 618 mls/hr 07/28/21 13:51 Dextrose/Water IV .Q10M PRN A.FIB/FLUTTER Protocol Amiodarone HCl 360 mg/ 207.2 mls @ 34.533 mls/hr 07/28/21 13:51 Dextrose/Water IV .Q6H PRN A.FIB/FLUTTER Protocol 1 MG/MIN Albumin Human 250 ml/ IV 250 mls @ 250 mls/hr 07/28/21 13:51 07/28/21 15:11 Solution IVPB 07/30/21 13:52 250 mls/hr Q1HR PRN Administration For Volume Protocol Acetaminophen 1,000 mg/ IV 100 mls @ 400 mls/hr 07/28/21 18:00 Solution IVPB 07/29/21 00:14 Q6HR DIAN Clevidipine 25 mg/ IV Solution 50 mls @ 2 mls/hr 07/28/21 13:51 IV .Q24H DIAN Protocol 1 MG/HR Nitroglycerin/Dextrose 50 mg/ 250 mls @ 1.5 mls/hr 07/28/21 13:51 07/28/21 14:53 IV Solution IV 5 mcg/min .Q24H DIAN 1.5 mls/hr Administration 5 MCG/MIN Diltiazem HCl 125 mg/ Sodium 125 mls @ 5 mls/hr 07/28/21 13:51 07/28/21 14:55 Chloride IV 5 mg/hr .Q24H DIAN 5 mls/hr Administration 5 MG/HR Amiodarone HCl 450 mg/ 250 mls @ 16.667 mls/hr 07/28/21 13:51 Dextrose/Water IV .Q15H PRN A.FIB/FLUTTER Protocol 0.5 MG/MIN Lactated Ringer's 1,000 mls @ 50 mls/hr 07/28/21 13:51 07/28/21 14:53 Lactated Ringers IV 50 mls/hr .Q20H DIAN Administration Propofol 1,000 mg/ IV Solution 100 mls @ 0 mls/hr 07/28/21 13:51 07/28/21 14:54 IV 25 mcg/kg/min .Q0M DIAN 13.125 mls/hr Administration Protocol Titrate Dexmedetomidine HCl 400 mcg/ 100 mls @ 0 mls/hr 07/28/21 13:51 IV Solution IV 07/29/21 13:52 .Q0M [facility] Protocol Titrate Cefazolin Sodium 2 gm/ Sodium 50 mls @ 100 mls/hr 07/28/21 17:00 Chloride IVPB 07/29/21 09:29 Q8H [facility] Insulin Human Regular 100 unit 101 mls @ 0 mls/hr 07/28/21 13:51 / Sodium Chloride IV .Q0M [facility] Protocol Per Protocol Calcium Gluconate 1 gm/ Sodium 110 mls @ 100 mls/hr 07/28/21 15:02 07/28/21 15:20 Chloride IVPB 07/28/21 16:07 100 mls/hr ONCE ONE Administration Ketorolac Tromethamine 15 mg 07/28/21 13:51 Ketorolac 15 Mg/Ml 1 Ml Vial IVP 07/31/21 13:52 Q6HR PRN Moderate Pain Magnesium Hydroxide 2,400 mg 07/29/21 09:00 Magnesium Hydroxide 2,400 Mg/10 Ml Cup PO BID PRN Constipation Metoclopramide HCl 10 mg 07/28/21 13:51 Metoclopramide 5 Mg/Ml 2 Ml Vial IVP Q4H PRN Nausea And Vomiting Metoprolol Tartrate 12.5 mg 07/29/21 09:00 Metoprolol Tartrate 12.5 Mg Tab PO BID [facility] Miscellaneous Information 1 each 07/28/21 13:51 Potassium Replacement Protocol 1 Each Misc MISCELLANE DAILY PRN Per Protocol Protocol Miscellaneous Information 1 each 07/28/21 13:51 Magnesium Replacement Protocol 1 Each Misc MISCELLANE DAILY PRN Per Protocol Protocol Miscellaneous Information 1 each 07/28/21 13:51 Phosphorus Replacement Protoco 1 Each Misc MISCELLANE DAILY PRN Per Protocol Protocol Ondansetron HCl 4 mg 07/28/21 13:51 Ondansetron 4 Mg/2 Ml Vial IVP Q6HR PRN Nausea And Vomiting Oxycodone HCl 10 mg 07/28/21 13:51 Oxycodone Hcl 5 Mg Tab PO 07/29/21 01:31 Q4H PRN Severe Pain Oxycodone HCl 5 mg 07/28/21 13:51 Oxycodone Hcl 5 Mg Tab PO 07/29/21 01:31 Q4H PRN Moderate Pain Pantoprazole Sodium 40 mg 07/29/21 09:00 Pantoprazole 40 Mg/10 Ml Vial IVP DAILY DIAN Senna/Docusate Sodium 2 each 07/29/21 21:00 Sennosides-Docusate Sodium 1 Each Tab PO HS DIAN Sodium Chloride 10 ml 07/28/21 21:00 Sodium Chloride 0.9% Flush 10 Ml Syringe IV BID DIAN Intake and Output 07/28/21 07/28/21 07/28/21 06:59 14:59 22:59 Intake Total 50 103 Output Total 1450 Balance 50 -1347 Intake: IV 50 103 Output: Urine 550 Estimated Blood Loss 900 Other: Weight 87.5 kg 07/28/21 14:00 07/28/21 14:00 Assessment and Plan (1) Status post aorto-coronary artery bypass graft Current Visit: Yes Status: Acute Code(s): Z95.1 - PRESENCE OF AORTOCORONARY BYPASS GRAFT SNOMED Code(s): 886986655 (2) CAD (coronary artery disease) Current Visit: Yes Status: Acute Code(s): I25.10 - ATHSCL HEART DISEASE OF [place] CORONARY ARTERY W/O ANG PCTRS SNOMED Code(s): 03737729 (3) Hyperlipidemia Current Visit: Yes Status: Acute Code(s): E78.5 - HYPERLIPIDEMIA, UNSPECIFIED SNOMED Code(s): 66525744 Plan: Patient is still intubated and sedated. Hemodynamically stable. No arrhythmias. We'll follow along with you
[2021-07-28] MEDS ORDERED: IPRATROPIUM-ALBUTEROL 3 ML NEB INHALATION SCH (16:00)
[2021-07-28 16:04] LABS: Glucose,Whole Blood 126 mg/dL (75-99)
[2021-07-28] MEDS: HEPARIN SODIUM,PORCINE/PF 5,000 UNIT/0.5 ML SYRINGE SQ SCH (16:38)
[2021-07-28 16:53] LABS: Glucose,Whole Blood 136 mg/dL (75-99)
[2021-07-28 17:02] LABS: Basophils % (A) 0 %; Eosinophils % (A) 0 %; HCT 30.1 % (39.0-53.0); HGB 10.2 gm/dL (13.0-17.5); Lymphocytes % (A) 7 %; MCH 30.6 pg (25.0-35.0); MCV 89.9 fL (80.0-100.0); Mean Platelet Volume 9.6; Monocytes # (A) 0.8 k/uL (0-1.0); Monocytes % (A) 5 %; Neutrophils % (A) 86 %; Platelet Count 136 k/uL (150-450); RBC 3.35 m/uL (4.30-5.90); RDW 13.7 % (11.5-15.5)
[2021-07-28] MEDS: ACETAMINOPHEN IV (For NPO) 1,000 MG in EMPTY BAG 1 BAG IVPB SCH ×2 (17:42→23:47)
[2021-07-28 18:00] LABS: Glucose,Whole Blood 139 mg/dL (75-99)
[2021-07-28 19:07] LABS: Glucose,Whole Blood 142 mg/dL (75-99)
[2021-07-28 19:27] LABS: Basophils % (A) 0 %; Eosinophils % (A) 0 %; HCT 29.9 % (39.0-53.0); Lymphocytes # (A) 0.5 k/uL (1.0-4.8); Lymphocytes % (A) 4 %; MCH 30.8 pg (25.0-35.0); MCHC 33.6 g/dL (31.0-37.0); MCV 91.7 fL (80.0-100.0); Mean Platelet Volume 10.1; Monocytes # (A) 0.6 k/uL (0-1.0); Monocytes % (A) 5 %; Neutrophils # (A) 12.3 k/uL (1.3-7.7); Neutrophils % (A) 91 %; Platelet Count 127 k/uL (150-450); RBC 3.26 m/uL (4.30-5.90); RDW 13.1 % (11.5-15.5); WBC 13.5 k/uL (3.8-10.6)
[2021-07-28] MEDS: IPRATROPIUM-ALBUTEROL 3 ML NEB INHALATION SCH (19:43)
[2021-07-28 19:47] LABS: ABG Base Excess -0.7 mmol/L; ABG HCO3 25 mmol/L (21-25); ABG Oxygen Saturation 99.5 % (94-97); ABG PCO2 42 mmHg (35-45); ABG PH 7.38 (7.35-7.45); ABG PO2 121 mmHg (83-108); ABG TCO2 26 mmol/L (19-24); Allen Test Performed? Yes
[2021-07-28 19:49] LABS: Glucose,Whole Blood 152 mg/dL (75-99)
[2021-07-28 21:09] LABS: Glucose,Whole Blood 157 mg/dL (75-99)
[2021-07-28 22:14] LABS: Glucose,Whole Blood 142 mg/dL (75-99)
[2021-07-28 23:08] LABS: Glucose,Whole Blood 133 mg/dL (75-99)
[2021-07-29 00:03] LABS: Glucose,Whole Blood 127 mg/dL (75-99)
[2021-07-29] MEDS: HEPARIN SODIUM,PORCINE/PF 5,000 UNIT/0.5 ML SYRINGE SQ SCH ×4 (00:09→23:04)
[2021-07-29 01:09] LABS: Glucose,Whole Blood 132 mg/dL (75-99)
[2021-07-29] MEDS ORDERED: HYDROcodone/APAP 5-325MG 1 EACH TAB PO PRN (01:31)
[2021-07-29 01:59] LABS: Glucose,Whole Blood 128 mg/dL (75-99)
[2021-07-29] MEDS: DILTIAZEM 125 MG in SODIUM CHLORIDE 0.9% 100 ML IV SCH (02:09)
[2021-07-29 02:58] LABS: Glucose,Whole Blood 133 mg/dL (75-99)
[2021-07-29 04:20] LABS: Glucose,Whole Blood 125 mg/dL (75-99)
[2021-07-29 04:37] LABS: Basophils % (A) 0 %; Eosinophils % (A) 0 %; HCT 29.7 % (39.0-53.0); HGB 10.1 gm/dL (13.0-17.5); Lymphocytes # (A) 0.6 k/uL (1.0-4.8); Lymphocytes % (A) 4 %; MCH 30.3 pg (25.0-35.0); MCHC 33.9 g/dL (31.0-37.0); MCV 89.3 fL (80.0-100.0); Mean Platelet Volume 9.5; Monocytes # (A) 0.7 k/uL (0-1.0); Monocytes % (A) 5 %; Neutrophils # (A) 12.2 k/uL (1.3-7.7); Neutrophils % (A) 90 %; Platelet Count 142 k/uL (150-450); RBC 3.33 m/uL (4.30-5.90); RDW 13.7 % (11.5-15.5); WBC 13.6 k/uL (3.8-10.6)
[2021-07-29 05:05] LABS: Ionized Calcium 4.8 mg/dL (4.5-5.3)
[2021-07-29 05:20] LABS: ALT 69 U/L (4-49); AST 74 U/L (17-59); African American GFR (CKD) >90 (>60 ml/min/1.73 sqM); Albumin 3.2 g/dL (3.5-5.0); Alkaline Phosphatase 29 U/L (38-126); Anion Gap 5 mmol/L; Blood Urea Nitrogen 18 mg/dL (9-20); Calcium 8.1 mg/dL (8.4-10.2); Carbon Dioxide 24 mmol/L (22-30); Chloride 108 mmol/L (98-107); Glucose 128 mg/dL (74-99); Magnesium 2.2 mg/dL (1.6-2.3); Non-African American GFR(CKD) 88 (>60 ml/min/1.73 sqM); Sodium 137 mmol/L (137-145); Total Bilirubin 1.2 mg/dL (0.2-1.3)
[2021-07-29] MEDS: ALBUMIN HUMAN 5% 250 ML in EMPTY BAG 1 BAG IVPB PRN (06:23)
[2021-07-29 06:36] LABS: Glucose,Whole Blood 139 mg/dL (75-99)
[2021-07-29] MEDS ORDERED: ACETAMINOPHEN TAB 325 MG TAB PO PRN (06:36)
[2021-07-29 07:23] LABS: Glucose,Whole Blood 132 mg/dL (75-99)
[2021-07-29] MEDS: ASPIRIN 325 MG TAB PO SCH (08:06)
[2021-07-29] MEDS: METOPROLOL TARTRATE 12.5 MG TAB PO SCH ×2 (08:06→20:56)
[2021-07-29] MEDS: ATORVASTATIN 40 MG TAB PO SCH (08:06)
[2021-07-29] MEDS: CLOPIDOGREL 75 MG TAB PO SCH (08:06)
[2021-07-29] MEDS: LACTATED RINGERS 1,000 ML IV SCH (08:12)
--- NOTE | 2021-07-29 08:13 | OP ---
OPERATIVE REPORT DATE OF SURGERY: 07/28/2021. PREOPERATIVE DIAGNOSIS: Coronary artery disease. POSTOP DIAGNOSIS: Coronary artery disease. PROCEDURE: 1. Coronary artery bypass grafting x4 vessels (left internal mammary artery to left anterior descending artery, radial artery to obtuse marginal 1, saphenous vein graft to obtuse marginal 2, saphenous vein graft to posterior descending artery). 2. Endoscopic harvest left radial artery. 3. Endoscopic harvest of left greater saphenous vein. 4. Ligation of left atrial appendage using 35 mm AtriClip. 5. Epiaortic ultrasound. 6. Transesophageal cardiogram. 7. Closure of sternum using titanium plating system. SURGEON: Beny Gramajo MD. MARKETING ENGINEER: PAC, Joss Rucker NP. ANESTHESIA: General. SPECIMEN: None. COMPLICATION: None. INDICATION: The patient is a 71-year-old male with a past medical history significant for chronic cough, who presented to [facility] on 05/22/2021 with chest pain. Workup revealed ST elevation myocardial infarction. The patient taken emergently to the filling station laborer where a drug-eluting stent was placed in the circumflex artery. Symptomatology resolved. However, his cardiac cath did reveal additional disease needing further intervention. We did wait eight weeks and then a coronary artery bypass was recommended. The risks, benefits, and alternatives of the procedure were discussed with the patient and his girlfriend. All their questions answered. Consent was obtained. FINDINGS: The left internal mammary artery was good, brisk flow. The saphenous vein was good conduit. The radial artery was good conduit. The LAD measured 1.3 mm. The OM1 measured 1.5 mm. The OM2 measured 1.5 mm. The PDA measured 1.5 mm. PROCEDURE IN DETAIL: The patient was taken to the operating room, placed supine on the operating table. After induction of general anesthesia, he was prepped and draped in usual sterile fashion. Preoperative transesophageal cardiogram confirmed an ejection fraction of about 45-50 percent with trace mitral regurgitation and trace aortic insufficiency. A median sternotomy performed. Left internal mammary artery was harvested in a standard fashion taking care to clip all branches. Intravenous heparin was administered. The vessel was transected distally revealing brisk flow. Simultaneously greater saphenous vein was harvested in the left lower extremity using an aseptic technique. All branches were tied. In addition, radial artery was harvested from left upper extremity using endoscopic technique. Again, all branches were tied. All three vessels were good conduits. A pericardial cradle was created. The ascending aorta was palpated. The plaque noted. Epiaortic ultrasound was then performed on ascending artery. Again, all . An arterial cannula was placed through the right atrial appendage and directed into the IVC. Both antegrade and retrograde catheters were placed as well. The patient was then placed on parts identifier the heart. The cross-clamp was applied. Cold cardioplegia given both antegrade and retrograde fashion to achieve arrest of the heart. Of note, cardioplegia was delivered every 15 to 20 minutes with the patient under crossclamp. I began by identifying the left atrial appendage. A 9 mm AtriCure clip was placed across the suture ligation. from the anterior wall. The left posterior descending artery was identified. . This vessel accepted a 1.5 mm probe. Using saphenous vein anastomosis created. This was in . The graft was hemostatic and had great flow. Next, attention was then turned to the lateral wall. With the OM1, OM2 identified, OM2 was dissected free distally was created. probe. Using saphenous was then approached. The grafts hemostatic and had great flow. Next, the OM1 was identified and dissected free. A small accepted a 1.5 mm probe. Using radial artery, anastomosis created was performed using 7-[place]oz[place]. The flow. the anterior wall. The LAD was identified distal to the takeoff of the most distal diagonal branch. A small tunnel was created. This vessel accepted a 1.0 mm probe. Using left internal mammary artery, an end-to-side anastomosis created between the running 8-0 Prolene suture. The graft was hemostatic. The mammary pedicle was then tacked down to the anterior surface of the heart. Attention was then turned to the proximal anastomoses. These were performed in end-to- side fashion using 6-0 Prolene suture. in a retrograde fashion. as well. The cross-clamp was removed. The vein grafts were de-aired in the standard fashion. Distal anastomoses were inspected and appeared to be hemostatic. Temporary atrial and ventricular pacing wires were placed about the skin. The patient was then weaned off coronary artery bypass. He without difficulty. Followup transesophageal cardiogram confirmed no change in valve pathology or ejection fraction. Protamine was administered. There were no adverse reactions. The remaining cannulas were then removed. The mediastinum was copiously irrigated with warm saline solution. All surgical sites were inspected and appeared to be hemostatic. Soft tissues reapproximated over the ascending aorta as well as of the apex of the heart. Straight 32-[place]oz[place] chest tubes were placed in the mediastinum. These were both secured to the skin using sutures. Attention was then turned to closure of this sternum. Due to the patient's chronic cough, I elected to close the sternum with both cables and titanium plates. In total, three pineal cables as well as 2 X plates and a V plate were placed. A combination of 16 mm, 14 mm, and 12 mm screws were utilized. The close the sternum was well aligned. The medial wound was closed in layers. Sterile dressing was applied. The patient appeared to tolerate the procedure well. No complications. He returned to the ICU in critical condition. He did not receive any additional blood products. He was not requiring any pressor support. Of note, a physician volunteer assistant was utilized throughout the case to assist in opening and closing the chest, harvesting both vein and radial artery, and performing all anastomoses. The PA was required to the OR procedure and minimize the time the patient was on anesthesia. MMODL / IJN: [id number] /
--- NOTE | 2021-07-29 08:29 | P.PN ---
Subjective Progress Note Date: 07/29/21 Principal diagnosis: Multivessel coronary artery disease with recent STEMI and drug-eluting stent placement to the second obtuse marginal artery 05/22/2021, history of dyslipidemia, BPH status post TURP, never smoker, preoperative urine culture positive for enterococcus faecalis POD #1 coronary artery bypass grafting 4 with the left internal mammary artery to the left anterior descending artery, left radial artery to the first obtuse marginal artery, reverse saphenous vein graft to the second obtuse marginal artery, and reverse saphenous vein graft to the PDA, endovascular vein harvest of the left greater saphenous vein, endovascular vein harvest of the left radial artery, ligation of the left atrial appendage with a 35 mm AtriClip, epi-aortic ultrasound, intraoperative transesophageal echocardiogram by anesthesia, and closure of the sternum with titanium plates Postoperative acute blood loss anemia and thrombocytopenia, expected given hemodilution and cardiopulmonary bypass pump as well as preoperative use of Effient The patient was seen and examined this morning in the intensive care unit. He was sitting up in a recliner in no acute distress. Was successfully extubated last night at 19:58. States postsurgical pain is controlled on current medication regimen, denies shortness of breath. He was atrially paced at 80 bpm, underlying rhythm sinus in the mid 60s. Hemodynamically stable on no inotropes or pressors. Right internal jugular Orleans/Cordis, right radial arterial line, mediastinal/left pleural chest tubes all remain. No other concerns noted. Objective - Vital Signs Vital signs: Vital Signs Temp 96.4 F L 07/28/21 16:00 Pulse 66 07/29/21 07:30 Resp 15 07/29/21 07:30 BP 92/63 07/28/21 17:00 Pulse Ox 100 07/29/21 07:30 Intake & Output 07/28/21 07/29/21 07/29/21 18:59 06:59 18:59 Intake Total 701.357 9514.887 80.5 Output Total 2465 1818 100 Balance -1953.955 -336.113 -19.5 Weight 91.1 kg Intake: IV 189 1414.5 80.5 ACETAMINOPHEN IV (For NPO 100 ) 1,000 mg In Empty Bag 1 bag @ 400 mls/hr IVPB Q6HR [facility] Rx#:[id number] Albumin Human 5% 250 ml 250 In Empty Bag 1 bag @ 250 mls/hr IVPB Q1HR PRN Rx#: [id number] Lactated Ringers 1,000 ml 550 50 @ 50 mls/hr IV .Q20H [facility] Rx#:[id number] Nitroglycerin-D5w Pmx 50 16.5 1.5 mg In Dextrose/Water 1 250ml.bag @ 5 MCG/MIN 1.5 mls/hr IV .Q24H [facility] Rx#: [id number] cardiac output 50 340 20 ceFAZolin 2 gm In Sodium 50 Chloride 0.9% 50 ml @ 100 mls/hr IVPB Q8H [facility] Rx#: [id number] pressure bags 36 108 9 Intake, IV Titration 322.045 67.387 Amount ACETAMINOPHEN IV (For NPO 100 ) 1,000 mg In Empty Bag 1 bag @ 400 mls/hr IVPB Q6HR [facility] Rx#:[id number] Calcium Gluconate 1 gm In 100 Sodium Chloride 0.9% 100 ml @ 100 mls/hr IVPB ONCE ONE Rx#:[id number] Diltiazem 125 mg In 56.167 Sodium Chloride 0.9% 100 ml @ 5 MG/HR 5 mls/hr IV .Q24H [facility] Rx#:[id number] Insulin Regular 100 unit 0.345 11.220 In Sodium Chloride 0.9% 100 ml @ Per Protocol IV .Q0M [facility] Rx#:[id number] Lactated Ringers 1,000 ml 50 @ 50 mls/hr IV .Q20H [facility] Rx#:[id number] ceFAZolin 2 gm In Sodium 50 Chloride 0.9% 50 ml @ 100 mls/hr IVPB Q8H [facility] Rx#: [id number] propofoL 1,000 mg In 21.700 Empty Bag 1 bag @ Titrate IV .Q0M [facility] Rx#: [id number] Output: Chest Tube Drainage 230 553 20 left pleural 90 233 10 mediastinal 140 320 10 Urine 1335 1265 80 Estimated Blood Loss 900 Other: Voiding Method Indwelling Catheter Indwelling Catheter ABP, PAP, CO, CI - Last Documented Arterial Blood Pressure 123/52 Pulmonary Artery Pressure 17/10 Cardiac Output 5.4 Cardiac Index 2.6 - Exam CONSTITUTIONAL: Appears comfortable, cooperative, no acute distress RESPIRATORY: Lungs sounds diminished bilaterally. Respirations even, nonlabored. Currently on 4 L nasal cannula with oxygen saturation 95%. Able to achieve 600 mL on incentive spirometry. Strong cough. CARDIOVASCULAR: S1, S2 present. Regular rate and rhythm, was atrially paced at 80 bpm, underlying rhythm sinus with heart rate in the mid 60s. Sternum stable. Palpable peripheral pulses bilaterally. No edema present. No calf pain or tenderness noted. Heart hugger in place with patient demonstrating appropriate use. Antiembolism stockings, SCDs present. GASTROINTESTINAL: Abdomen soft, nontender, nondistended. Hypoactive bowel sounds present 4 quadrants. Tolerating clear liquids. Negative flatus GENITOURINARY: Cardenas present draining clear, yellow urine. Output overnight 80-100 mL per hour INTEGUMENTARY: Skin is warm and dry with evidence of good perfusion. Anterior chest incision well approximated and covered with dry intact dressing. Left lower extremity EVH site well approximated without redness or drainage. 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 Mediastinal tube with 210 mL serosanguineous drainage overnight, 450 mL since surgery. Left pleural chest tube with 170 mL serosanguineous drainage overnight, 400 mL since surgery. A/V epicardial pacemaker wires present, connected to generator, placed to backup rate 50 bpm. Right internal jugular Orleans/Cordis, right radial arterial line present. Last CO/CI 5.4/2.6, PA 08/06, CVP 2. - Allied health notes Allied health notes reviewed: nursing - Labs CBC & Chem 7: 07/29/21 04:15 07/29/21 04:15 Labs: Abnormal Lab Results - Last 24 Hours (Table) 07/20/21 07/28/21 07/28/21 Range/Units 09:00 14:00 14:00 WBC 11.8 H (3.8-10.6) k/uL RBC 3.35 L (4.30-5.90) m/uL Hgb 10.1 L D (13.0-17.5) gm/dL Hct 29.9 L (39.0-53.0) % Plt Count 124 L D (150-450) k/uL Neutrophils # 10.4 H (1.3-7.7) k/uL Lymphocytes # 0.8 L (1.0-4.8) k/uL APTT 36.1 H (22.0-30.0) sec ABG pO2 (83-108) mmHg ABG Total CO2 (19-24) mmol/L ABG O2 Saturation (94-97) % Chloride (98-107) mmol/L Carbon Dioxide (22-30) mmol/L Glucose (74-99) mg/dL POC Glucose (mg/dL) (75-99) mg/dL Calcium (8.4-10.2) mg/dL Ionized Calcium Tiffany (4.5-5.3) mg/dL Magnesium (1.6-2.3) mg/dL AST (17-59) U/L ALT (4-49) U/L Alkaline Phosphatase (38-126) U/L Total Protein (6.3-8.2) g/dL Albumin (3.5-5.0) g/dL Crossmatch See Detail 07/28/21 07/28/21 07/28/21 Range/Units 14:00 14:10 14:34 WBC (3.8-10.6) k/uL RBC (4.30-5.90) m/uL Hgb (13.0-17.5) gm/dL Hct (39.0-53.0) % Plt Count (150-450) k/uL Neutrophils # (1.3-7.7) k/uL Lymphocytes # (1.0-4.8) k/uL APTT (22.0-30.0) sec ABG pO2 324 H (83-108) mmHg ABG Total CO2 26 H (19-24) mmol/L ABG O2 Saturation 100.0 H (94-97) % Chloride 110 H (98-107) mmol/L Carbon Dioxide 21 L (22-30) mmol/L Glucose 112 H (74-99) mg/dL POC Glucose (mg/dL) 114 H (75-99) mg/dL Calcium 7.3 L (8.4-10.2) mg/dL Ionized Calcium Tiffany 4.2 L (4.5-5.3) mg/dL Magnesium 2.5 H (1.6-2.3) mg/dL AST 79 H (17-59) U/L ALT 79 H (4-49) U/L Alkaline Phosphatase 26 L (38-126) U/L Total Protein 4.7 L (6.3-8.2) g/dL Albumin 2.9 L (3.5-5.0) g/dL Crossmatch 07/28/21 07/28/21 07/28/21 Range/Units 14:59 16:02 16:50 WBC 14.0 H (3.8-10.6) k/uL RBC 3.35 L (4.30-5.90) m/uL Hgb 10.2 L (13.0-17.5) gm/dL Hct 30.1 L (39.0-53.0) % Plt Count 136 L (150-450) k/uL Neutrophils # 12.0 H (1.3-7.7) k/uL Lymphocytes # (1.0-4.8) k/uL APTT (22.0-30.0) sec ABG pO2 (83-108) mmHg ABG Total CO2 (19-24) mmol/L ABG O2 Saturation (94-97) % Chloride (98-107) mmol/L Carbon Dioxide (22-30) mmol/L Glucose (74-99) mg/dL POC Glucose (mg/dL) 101 H 126 H (75-99) mg/dL Calcium (8.4-10.2) mg/dL Ionized Calcium Tiffany (4.5-5.3) mg/dL Magnesium (1.6-2.3) mg/dL AST (17-59) U/L ALT (4-49) U/L Alkaline Phosphatase (38-126) U/L Total Protein (6.3-8.2) g/dL Albumin (3.5-5.0) g/dL Crossmatch 07/28/21 07/28/21 07/28/21 Range/Units 16:52 17:59 19:06 WBC (3.8-10.6) k/uL RBC (4.30-5.90) m/uL Hgb (13.0-17.5) gm/dL Hct (39.0-53.0) % Plt Count (150-450) k/uL Neutrophils # (1.3-7.7) k/uL Lymphocytes # (1.0-4.8) k/uL APTT (22.0-30.0) sec ABG pO2 (83-108) mmHg ABG Total CO2 (19-24) mmol/L ABG O2 Saturation (94-97) % Chloride (98-107) mmol/L Carbon Dioxide (22-30) mmol/L Glucose (74-99) mg/dL POC Glucose (mg/dL) 136 H 139 H 142 H (75-99) mg/dL Calcium (8.4-10.2) mg/dL Ionized Calcium Tiffany (4.5-5.3) mg/dL Magnesium (1.6-2.3) mg/dL AST (17-59) U/L ALT (4-49) U/L Alkaline Phosphatase (38-126) U/L Total Protein (6.3-8.2) g/dL Albumin (3.5-5.0) g/dL Crossmatch 07/28/21 07/28/21 07/28/21 Range/Units 19:13 19:41 19:47 WBC 13.5 H (3.8-10.6) k/uL RBC 3.26 L (4.30-5.90) m/uL Hgb 10.0 L (13.0-17.5) gm/dL Hct 29.9 L (39.0-53.0) % Plt Count 127 L (150-450) k/uL Neutrophils # 12.3 H (1.3-7.7) k/uL Lymphocytes # 0.5 L (1.0-4.8) k/uL APTT (22.0-30.0) sec ABG pO2 121 H (83-108) mmHg ABG Total CO2 26 H (19-24) mmol/L ABG O2 Saturation 99.5 H (94-97) % Chloride (98-107) mmol/L Carbon Dioxide (22-30) mmol/L Glucose (74-99) mg/dL POC Glucose (mg/dL) 152 H (75-99) mg/dL Calcium (8.4-10.2) mg/dL Ionized Calcium Tiffany (4.5-5.3) mg/dL Magnesium (1.6-2.3) mg/dL AST (17-59) U/L ALT (4-49) U/L Alkaline Phosphatase (38-126) U/L Total Protein (6.3-8.2) g/dL Albumin (3.5-5.0) g/dL Crossmatch 07/28/21 07/28/21 07/28/21 Range/Units 21:07 22:12 23:06 WBC (3.8-10.6) k/uL RBC (4.30-5.90) m/uL Hgb (13.0-17.5) gm/dL Hct (39.0-53.0) % Plt Count (150-450) k/uL Neutrophils # (1.3-7.7) k/uL Lymphocytes # (1.0-4.8) k/uL APTT (22.0-30.0) sec ABG pO2 (83-108) mmHg ABG Total CO2 (19-24) mmol/L ABG O2 Saturation (94-97) % Chloride (98-107) mmol/L Carbon Dioxide (22-30) mmol/L Glucose (74-99) mg/dL POC Glucose (mg/dL) 157 H 142 H 133 H (75-99) mg/dL Calcium (8.4-10.2) mg/dL Ionized Calcium Tiffany (4.5-5.3) mg/dL Magnesium (1.6-2.3) mg/dL AST (17-59) U/L ALT (4-49) U/L Alkaline Phosphatase (38-126) U/L Total Protein (6.3-8.2) g/dL Albumin (3.5-5.0) g/dL Crossmatch 07/29/21 07/29/21 07/29/21 Range/Units 00:02 01:07 01:57 WBC (3.8-10.6) k/uL RBC (4.30-5.90) m/uL Hgb (13.0-17.5) gm/dL Hct (39.0-53.0) % Plt Count (150-450) k/uL Neutrophils # (1.3-7.7) k/uL Lymphocytes # (1.0-4.8) k/uL APTT (22.0-30.0) sec ABG pO2 (83-108) mmHg ABG Total CO2 (19-24) mmol/L ABG O2 Saturation (94-97) % Chloride (98-107) mmol/L Carbon Dioxide (22-30) mmol/L Glucose (74-99) mg/dL POC Glucose (mg/dL) 127 H 132 H 128 H (75-99) mg/dL Calcium (8.4-10.2) mg/dL Ionized Calcium Tiffany (4.5-5.3) mg/dL Magnesium (1.6-2.3) mg/dL AST (17-59) U/L ALT (4-49) U/L Alkaline Phosphatase (38-126) U/L Total Protein (6.3-8.2) g/dL Albumin (3.5-5.0) g/dL Crossmatch 07/29/21 07/29/21 07/29/21 Range/Units 02:55 04:15 04:15 WBC 13.6 H (3.8-10.6) k/uL RBC 3.33 L (4.30-5.90) m/uL Hgb 10.1 L (13.0-17.5) gm/dL Hct 29.7 L (39.0-53.0) % Plt Count 142 L (150-450) k/uL Neutrophils # 12.2 H (1.3-7.7) k/uL Lymphocytes # 0.6 L (1.0-4.8) k/uL APTT (22.0-30.0) sec ABG pO2 (83-108) mmHg ABG Total CO2 (19-24) mmol/L ABG O2 Saturation (94-97) % Chloride 108 H (98-107) mmol/L Carbon Dioxide (22-30) mmol/L Glucose 128 H (74-99) mg/dL POC Glucose (mg/dL) 133 H (75-99) mg/dL Calcium 8.1 L (8.4-10.2) mg/dL Ionized Calcium Tiffany (4.5-5.3) mg/dL Magnesium (1.6-2.3) mg/dL AST 74 H (17-59) U/L ALT 69 H (4-49) U/L Alkaline Phosphatase 29 L (38-126) U/L Total Protein 5.0 L (6.3-8.2) g/dL Albumin 3.2 L (3.5-5.0) g/dL Crossmatch 07/29/21 07/29/21 07/29/21 Range/Units 04:17 06:35 07:21 WBC (3.8-10.6) k/uL RBC (4.30-5.90) m/uL Hgb (13.0-17.5) gm/dL Hct (39.0-53.0) % Plt Count (150-450) k/uL Neutrophils # (1.3-7.7) k/uL Lymphocytes # (1.0-4.8) k/uL APTT (22.0-30.0) sec ABG pO2 (83-108) mmHg ABG Total CO2 (19-24) mmol/L ABG O2 Saturation (94-97) % Chloride (98-107) mmol/L Carbon Dioxide (22-30) mmol/L Glucose (74-99) mg/dL POC Glucose (mg/dL) 125 H 139 H 132 H (75-99) mg/dL Calcium (8.4-10.2) mg/dL Ionized Calcium Tiffany (4.5-5.3) mg/dL Magnesium (1.6-2.3) mg/dL AST (17-59) U/L ALT (4-49) U/L Alkaline Phosphatase (38-126) U/L Total Protein (6.3-8.2) g/dL Albumin (3.5-5.0) g/dL Crossmatch Microbiology - Last 24 Hours (Table) 07/28/21 09:35 Urine Culture - Preliminary Urine,Catheterized - Imaging and Cardiology Chest x-ray: image reviewed Assessment and Plan Assessment: 1. Multivessel coronary artery disease with recent STEMI and drug-eluting stent placement to the second obtuse marginal artery 05/22/2021, status post four-ves bradley CABG 2. History of dyslipidemia, treated, cholesterol 101, LDL 43, triglycerides 74 3. BPH status post TURP 4. Never smoker, preoperative FEV1 93% of predicted 5. Preoperative urine culture positive for enterococcus faecalis 6. Postoperative acute blood loss anemia and thrombocytopenia, expected 7. Vaccinated with Moderna, last dose May 2021 Plan: 1. Continue aspirin, statin, Plavix, beta james therapy. Will increase beta james therapy as tolerated 2. Discontinue IV nitro. Will start low-dose calcium channel james for radial artery spasm prophylaxis, discontinue IV Cardizem after oral CCB given. Do not discontinue CCB without discussed with cardiac surgery 3. Wean O2 as tolerated. Encourage incentive spirometry use 10 times every jessica r while awake. Bronchodilators per pulmonology 4. Increase activity, ambulate as tolerated. PT/OT/cardiac rehab consulted 5. Will monitor daily labs and x-rays. Electrolyte replacement per protocol 6. GI/DVT prophylaxis 7. Pain control with current medication regimen 8. Insulin management per primary care service. Patient is not diabetic, preoperative hemoglobin A1c 5.7%. Needs tight blood sugar control to promote sternal union and prevent infection 9. Discontinue Orleans. Connect Cordis to continuous CVP monitoring 10. Continue chest tubes for another 24 hours 11. Continue Cardenas catheter for another 24 hours for strict accurate intake and output. Daily weights 12. More recommendations to follow based on patient's progress Time with Patient: Greater than 30
--- NOTE | 2021-07-29 08:31 | P.PN ---
Subjective Progress Note Date: 07/29/212020, the patient is postop day #1. Doing extremely well. Extubated currently on oxygen 2 L. Chest x-ray from today shows adequate expansion of both lungs. No evidence of any pneumothorax. ET tube was removed. [place]-Irma catheter still in place. He has some atelectatic changes in the left lung base. Right lung is essentially clear for now. Output from the chest tubes have been 400 mL from the left pleural and 500 mL from the mediastinal chest tube. Cardiac rhythm is sinus. Pacemaker is currently at a backup. He did have some sinus bradycardia postop which recovered. He is using incentive spirometer. His bowling approximately 500. He is still on a Cardizem drip and nitroglycerin drip has been discontinued. Cardizem drip is running at 5 mg an hour. He is awake and alert. He is hemodynamically stable. Cardiac output is 7 with an index of 3.3. No other significant events overnight. He is awake and alert. Objective - Vital Signs Vital signs: Vital Signs Temp 96.4 F L 07/28/21 16:00 Pulse 66 07/29/21 07:30 Resp 15 07/29/21 07:30 BP 92/63 07/28/21 17:00 Pulse Ox 100 07/29/21 07:30 Intake & Output 07/28/21 07/29/21 07/29/21 18:59 06:59 18:59 Intake Total 011.667 9434.887 80.5 Output Total 2465 1818 100 Balance -1953.955 -336.113 -19.5 Weight 91.1 kg Intake: IV 189 1414.5 80.5 ACETAMINOPHEN IV (For NPO 100 ) 1,000 mg In Empty Bag 1 bag @ 400 mls/hr IVPB Q6HR [facility] Rx#:[id number] Albumin Human 5% 250 ml 250 In Empty Bag 1 bag @ 250 mls/hr IVPB Q1HR PRN Rx#: [id number] Lactated Ringers 1,000 ml 550 50 @ 50 mls/hr IV .Q20H [facility] Rx#:[id number] Nitroglycerin-D5w Pmx 50 16.5 1.5 mg In Dextrose/Water 1 250ml.bag @ 5 MCG/MIN 1.5 mls/hr IV .Q24H [facility] Rx#: [id number] cardiac output 50 340 20 ceFAZolin 2 gm In Sodium 50 Chloride 0.9% 50 ml @ 100 mls/hr IVPB Q8H [facility] Rx#: [id number] pressure bags 36 108 9 Intake, IV Titration 322.045 67.387 Amount ACETAMINOPHEN IV (For NPO 100 ) 1,000 mg In Empty Bag 1 bag @ 400 mls/hr IVPB Q6HR [facility] Rx#:[id number] Calcium Gluconate 1 gm In 100 Sodium Chloride 0.9% 100 ml @ 100 mls/hr IVPB ONCE ONE Rx#:[id number] Diltiazem 125 mg In 56.167 Sodium Chloride 0.9% 100 ml @ 5 MG/HR 5 mls/hr IV .Q24H [facility] Rx#:[id number] Insulin Regular 100 unit 0.345 11.220 In Sodium Chloride 0.9% 100 ml @ Per Protocol IV .Q0M [facility] Rx#:[id number] Lactated Ringers 1,000 ml 50 @ 50 mls/hr IV .Q20H [facility] Rx#:[id number] ceFAZolin 2 gm In Sodium 50 Chloride 0.9% 50 ml @ 100 mls/hr IVPB Q8H [facility] Rx#: [id number] propofoL 1,000 mg In 21.700 Empty Bag 1 bag @ Titrate IV .Q0M [facility] Rx#: [id number] Output: Chest Tube Drainage 230 553 20 left pleural 90 233 10 mediastinal 140 320 10 Urine 1335 1265 80 Estimated Blood Loss 900 Other: Voiding Method Indwelling Catheter Indwelling Catheter ABP, PAP, CO, CI - Last Documented Arterial Blood Pressure 123/52 Pulmonary Artery Pressure 17/10 Cardiac Output 5.4 Cardiac Index 2.6 - Exam The patient is extubated, sitting up on a chair and he is calm and comfortable. He is currently on oxygen 2 L per minute nasal cannula. Head exam was generally normal. There was no scleral icterus or corneal arcus. Mucous membranes were moist. Neck is supple and the patient has a left IJ Cordis along with a [place]-Irma catheter in place Lungs sounds are equal and symmetrical diminished in lung bases. The patient has a mediastinal and left pleural chest tube. Thoracotomy scar is dry clean and intact Cardiac exam revealed the PMI to be normally situated and sized. The rhythm was regular and no extrasystoles were noted during several minutes of auscultation. The first and second heart sounds were normal and physiologic splitting of the second heart sound was noted. There were no murmurs, rubs, clicks, or gallops. Abdominal exam revealed normal bowel sounds. The abdomen was soft, non-tender, and without masses, organomegaly, or appreciable enlargement of the abdominal aorta. Extremities revealed no significant edema cyanosis or clubbing. Surgical wound site over the left radial artery site is dry clean and intact. - Labs CBC & Chem 7: 07/29/21 04:15 07/29/21 04:15 Labs: Abnormal Lab Results - Last 24 Hours (Table) 07/20/21 07/28/21 07/28/21 Range/Units 09:00 14:00 14:00 WBC 11.8 H (3.8-10.6) k/uL RBC 3.35 L (4.30-5.90) m/uL Hgb 10.1 L D (13.0-17.5) gm/dL Hct 29.9 L (39.0-53.0) % Plt Count 124 L D (150-450) k/uL Neutrophils # 10.4 H (1.3-7.7) k/uL Lymphocytes # 0.8 L (1.0-4.8) k/uL APTT 36.1 H (22.0-30.0) sec ABG pO2 (83-108) mmHg ABG Total CO2 (19-24) mmol/L ABG O2 Saturation (94-97) % Chloride (98-107) mmol/L Carbon Dioxide (22-30) mmol/L Glucose (74-99) mg/dL POC Glucose (mg/dL) (75-99) mg/dL Calcium (8.4-10.2) mg/dL Ionized Calcium Tiffany (4.5-5.3) mg/dL Magnesium (1.6-2.3) mg/dL AST (17-59) U/L ALT (4-49) U/L Alkaline Phosphatase (38-126) U/L Total Protein (6.3-8.2) g/dL Albumin (3.5-5.0) g/dL Crossmatch See Detail 07/28/21 07/28/21 07/28/21 Range/Units 14:00 14:10 14:34 WBC (3.8-10.6) k/uL RBC (4.30-5.90) m/uL Hgb (13.0-17.5) gm/dL Hct (39.0-53.0) % Plt Count (150-450) k/uL Neutrophils # (1.3-7.7) k/uL Lymphocytes # (1.0-4.8) k/uL APTT (22.0-30.0) sec ABG pO2 324 H (83-108) mmHg ABG Total CO2 26 H (19-24) mmol/L ABG O2 Saturation 100.0 H (94-97) % Chloride 110 H (98-107) mmol/L Carbon Dioxide 21 L (22-30) mmol/L Glucose 112 H (74-99) mg/dL POC Glucose (mg/dL) 114 H (75-99) mg/dL Calcium 7.3 L (8.4-10.2) mg/dL Ionized Calcium Tiffany 4.2 L (4.5-5.3) mg/dL Magnesium 2.5 H (1.6-2.3) mg/dL AST 79 H (17-59) U/L ALT 79 H (4-49) U/L Alkaline Phosphatase 26 L (38-126) U/L Total Protein 4.7 L (6.3-8.2) g/dL Albumin 2.9 L (3.5-5.0) g/dL Crossmatch 07/28/21 07/28/21 07/28/21 Range/Units 14:59 16:02 16:50 WBC 14.0 H (3.8-10.6) k/uL RBC 3.35 L (4.30-5.90) m/uL Hgb 10.2 L (13.0-17.5) gm/dL Hct 30.1 L (39.0-53.0) % Plt Count 136 L (150-450) k/uL Neutrophils # 12.0 H (1.3-7.7) k/uL Lymphocytes # (1.0-4.8) k/uL APTT (22.0-30.0) sec ABG pO2 (83-108) mmHg ABG Total CO2 (19-24) mmol/L ABG O2 Saturation (94-97) % Chloride (98-107) mmol/L Carbon Dioxide (22-30) mmol/L Glucose (74-99) mg/dL POC Glucose (mg/dL) 101 H 126 H (75-99) mg/dL Calcium (8.4-10.2) mg/dL Ionized Calcium Tiffany (4.5-5.3) mg/dL Magnesium (1.6-2.3) mg/dL AST (17-59) U/L ALT (4-49) U/L Alkaline Phosphatase (38-126) U/L Total Protein (6.3-8.2) g/dL Albumin (3.5-5.0) g/dL Crossmatch 07/28/21 07/28/21 07/28/21 Range/Units 16:52 17:59 19:06 WBC (3.8-10.6) k/uL RBC (4.30-5.90) m/uL Hgb (13.0-17.5) gm/dL Hct (39.0-53.0) % Plt Count (150-450) k/uL Neutrophils # (1.3-7.7) k/uL Lymphocytes # (1.0-4.8) k/uL APTT (22.0-30.0) sec ABG pO2 (83-108) mmHg ABG Total CO2 (19-24) mmol/L ABG O2 Saturation (94-97) % Chloride (98-107) mmol/L Carbon Dioxide (22-30) mmol/L Glucose (74-99) mg/dL POC Glucose (mg/dL) 136 H 139 H 142 H (75-99) mg/dL Calcium (8.4-10.2) mg/dL Ionized Calcium Tiffany (4.5-5.3) mg/dL Magnesium (1.6-2.3) mg/dL AST (17-59) U/L ALT (4-49) U/L Alkaline Phosphatase (38-126) U/L Total Protein (6.3-8.2) g/dL Albumin (3.5-5.0) g/dL Crossmatch 07/28/21 07/28/21 07/28/21 Range/Units 19:13 19:41 19:47 WBC 13.5 H (3.8-10.6) k/uL RBC 3.26 L (4.30-5.90) m/uL Hgb 10.0 L (13.0-17.5) gm/dL Hct 29.9 L (39.0-53.0) % Plt Count 127 L (150-450) k/uL Neutrophils # 12.3 H (1.3-7.7) k/uL Lymphocytes # 0.5 L (1.0-4.8) k/uL APTT (22.0-30.0) sec ABG pO2 121 H (83-108) mmHg ABG Total CO2 26 H (19-24) mmol/L ABG O2 Saturation 99.5 H (94-97) % Chloride (98-107) mmol/L Carbon Dioxide (22-30) mmol/L Glucose (74-99) mg/dL POC Glucose (mg/dL) 152 H (75-99) mg/dL Calcium (8.4-10.2) mg/dL Ionized Calcium Tiffany (4.5-5.3) mg/dL Magnesium (1.6-2.3) mg/dL AST (17-59) U/L ALT (4-49) U/L Alkaline Phosphatase (38-126) U/L Total Protein (6.3-8.2) g/dL Albumin (3.5-5.0) g/dL Crossmatch 07/28/21 07/28/21 07/28/21 Range/Units 21:07 22:12 23:06 WBC (3.8-10.6) k/uL RBC (4.30-5.90) m/uL Hgb (13.0-17.5) gm/dL Hct (39.0-53.0) % Plt Count (150-450) k/uL Neutrophils # (1.3-7.7) k/uL Lymphocytes # (1.0-4.8) k/uL APTT (22.0-30.0) sec ABG pO2 (83-108) mmHg ABG Total CO2 (19-24) mmol/L ABG O2 Saturation (94-97) % Chloride (98-107) mmol/L Carbon Dioxide (22-30) mmol/L Glucose (74-99) mg/dL POC Glucose (mg/dL) 157 H 142 H 133 H (75-99) mg/dL Calcium (8.4-10.2) mg/dL Ionized Calcium Tiffany (4.5-5.3) mg/dL Magnesium (1.6-2.3) mg/dL AST (17-59) U/L ALT (4-49) U/L Alkaline Phosphatase (38-126) U/L Total Protein (6.3-8.2) g/dL Albumin (3.5-5.0) g/dL Crossmatch 07/29/21 07/29/21 07/29/21 Range/Units 00:02 01:07 01:57 WBC (3.8-10.6) k/uL RBC (4.30-5.90) m/uL Hgb (13.0-17.5) gm/dL Hct (39.0-53.0) % Plt Count (150-450) k/uL Neutrophils # (1.3-7.7) k/uL Lymphocytes # (1.0-4.8) k/uL APTT (22.0-30.0) sec ABG pO2 (83-108) mmHg ABG Total CO2 (19-24) mmol/L ABG O2 Saturation (94-97) % Chloride (98-107) mmol/L Carbon Dioxide (22-30) mmol/L Glucose (74-99) mg/dL POC Glucose (mg/dL) 127 H 132 H 128 H (75-99) mg/dL Calcium (8.4-10.2) mg/dL Ionized Calcium Tiffany (4.5-5.3) mg/dL Magnesium (1.6-2.3) mg/dL AST (17-59) U/L ALT (4-49) U/L Alkaline Phosphatase (38-126) U/L Total Protein (6.3-8.2) g/dL Albumin (3.5-5.0) g/dL Crossmatch 07/29/21 07/29/21 07/29/21 Range/Units 02:55 04:15 04:15 WBC 13.6 H (3.8-10.6) k/uL RBC 3.33 L (4.30-5.90) m/uL Hgb 10.1 L (13.0-17.5) gm/dL Hct 29.7 L (39.0-53.0) % Plt Count 142 L (150-450) k/uL Neutrophils # 12.2 H (1.3-7.7) k/uL Lymphocytes # 0.6 L (1.0-4.8) k/uL APTT (22.0-30.0) sec ABG pO2 (83-108) mmHg ABG Total CO2 (19-24) mmol/L ABG O2 Saturation (94-97) % Chloride 108 H (98-107) mmol/L Carbon Dioxide (22-30) mmol/L Glucose 128 H (74-99) mg/dL POC Glucose (mg/dL) 133 H (75-99) mg/dL Calcium 8.1 L (8.4-10.2) mg/dL Ionized Calcium Tiffany (4.5-5.3) mg/dL Magnesium (1.6-2.3) mg/dL AST 74 H (17-59) U/L ALT 69 H (4-49) U/L Alkaline Phosphatase 29 L (38-126) U/L Total Protein 5.0 L (6.3-8.2) g/dL Albumin 3.2 L (3.5-5.0) g/dL Crossmatch 07/29/21 07/29/21 07/29/21 Range/Units 04:17 06:35 07:21 WBC (3.8-10.6) k/uL RBC (4.30-5.90) m/uL Hgb (13.0-17.5) gm/dL Hct (39.0-53.0) % Plt Count (150-450) k/uL Neutrophils # (1.3-7.7) k/uL Lymphocytes # (1.0-4.8) k/uL APTT (22.0-30.0) sec ABG pO2 (83-108) mmHg ABG Total CO2 (19-24) mmol/L ABG O2 Saturation (94-97) % Chloride (98-107) mmol/L Carbon Dioxide (22-30) mmol/L Glucose (74-99) mg/dL POC Glucose (mg/dL) 125 H 139 H 132 H (75-99) mg/dL Calcium (8.4-10.2) mg/dL Ionized Calcium Tiffany (4.5-5.3) mg/dL Magnesium (1.6-2.3) mg/dL AST (17-59) U/L ALT (4-49) U/L Alkaline Phosphatase (38-126) U/L Total Protein (6.3-8.2) g/dL Albumin (3.5-5.0) g/dL Crossmatch Microbiology - Last 24 Hours (Table) 07/28/21 09:35 Urine Culture - Preliminary Urine,Catheterized Assessment and Plan Plan: 1 symptomatic multivessel coronary artery disease and the patient underwent four-vessel bypass surgery and the patient is currently paced postop day #1. The patient had THOMAS to LAD and radial arterial graft to to OM1, SVG to OM 2, SVG to PDA. Patient is postop day #1. The patient is hemodynamically stable on no pressors. The patient is on a Cardizem drip at 5 mg an hour and nitroglycerin drip has been discontinued. Hemodynamically stable. Awake and alert 2 acute hypoxic respiratory failure, post thoracotomy and bypass surgery. Extu bated no issues on 2 L of oxygen by nasal cannula. Output from the chest tube has been noted, using incentive spirometer 3 known history of coronary artery disease with previous STEMI with stenting of OM 2 4 hyperlipidemia 5 chronic cough 6 environmental ALLERGIES 7 BPH Plan The insulin drip and put the patient vascular insulin coverage and advance his diet Patient is hemodynamic is stable May remove the [place]-Irma catheter Keep the chest tube in place Intrinsic rhythm is normal sinus Keep on oxygen at 2 L per minute nasal cannula Chest x-ray was noted Continue aspirin and Plavix and the patient is currently on high dose statins and beta blockers We'll keep in ICU for another 24 hours. We'll continue to follow
--- NOTE | 2021-07-29 08:40 | XR ---
EXAMINATION TYPE: XR chest 1V portable DATE OF EXAM: 07/29/2021 COMPARISON: 07/28/2021 HISTORY: Postop TECHNIQUE: Single frontal view of the chest is obtained. FINDINGS: ET and NG tube has been removed. There is mediastinal drain and left-sided chest tube. Sub cutaneous emphysema. No sizable pneumothorax. Left upper lobe and lower lobe subsegmental consolidati on suggestive of atelectasis. Heart size normal. Postsurgical changes are seen. ET tube approximately 3.5 cm above stanley. IMPRESSION: Postoperative change with suspected postoperative atelectasis and small left effusion.
[2021-07-29 08:42] LABS: Glucose,Whole Blood 129 mg/dL (75-99)
[2021-07-29] MEDS ORDERED: MAGNESIUM HYDROXIDE 2,400 MG/10 ML CUP PO PRN (09:00)
[2021-07-29] MEDS ORDERED: bisacodyL 10 MG SUPP RECTAL PRN (09:00)
[2021-07-29] MEDS ORDERED: PANTOPRAZOLE 40 MG/10 ML VIAL IVP SCH (09:00)
[2021-07-29] MEDS: IPRATROPIUM-ALBUTEROL 3 ML NEB INHALATION SCH ×4 (09:20→19:30)
[2021-07-29 11:18] VITALS: BMI 27.2
[2021-07-29] MEDS: amLODIPine 2.5 MG TAB PO SCH (11:23)
[2021-07-29 11:54] LABS: Glucose,Whole Blood 149 mg/dL (75-99)
--- NOTE | 2021-07-29 11:58 | P.PN ---
Subjective Progress Note Date: 07/29/21 This is a 71-year-old gentleman who is a status post bypass surgery. Patient seemed to be clinically stable. His hemodynamics are stable. No arrhythmias noted. Patient is sitting up in the chair and seems to be alert and oriented in no acute distress. Complains of soreness of the chest. [place]ma catheter then removed. His cardiac output was good. Lungs show some diminished breath sounds at bases. Heart is regular. Overall patient seemed to make good progress. Continue current management Objective - Vital Signs Vital signs: Vital Signs Temp 98.2 F 07/29/21 10:30 Pulse 62 07/29/21 11:00 Resp 14 07/29/21 11:00 BP 92/63 07/29/21 11:00 Pulse Ox 97 07/29/21 11:00 Intake & Output 07/28/21 07/29/21 07/29/21 18:59 06:59 18:59 Intake Total 144.577 6065.887 315.5 Output Total 2465 1818 305 Balance -1953.955 -336.113 10.5 Weight 91.1 kg 91.1 kg Intake: IV 189 1414.5 315.5 ACETAMINOPHEN IV (For NPO 100 ) 1,000 mg In Empty Bag 1 bag @ 400 mls/hr IVPB Q6HR [facility] Rx#:[id number] Albumin Human 5% 250 ml 250 In Empty Bag 1 bag @ 250 mls/hr IVPB Q1HR [facility] Rx#: [id number] Lactated Ringers 1,000 ml 550 200 @ 20 mls/hr IV .Q24H [facility] Rx#:[id number] Nitroglycerin-D5w Pmx 50 16.5 1.5 mg In Dextrose/Water 1 250ml.bag @ 5 MCG/MIN 1.5 mls/hr IV .Q24H [facility] Rx#: [id number] cardiac output 50 340 40 ceFAZolin 2 gm In Sodium 50 50 Chloride 0.9% 50 ml @ 100 mls/hr IVPB Q8H [facility] Rx#: [id number] pressure bags 36 108 24 Intake, IV Titration 322.045 67.387 Amount ACETAMINOPHEN IV (For NPO 100 ) 1,000 mg In Empty Bag 1 bag @ 400 mls/hr IVPB Q6HR [facility] Rx#:[id number] Calcium Gluconate 1 gm In 100 Sodium Chloride 0.9% 100 ml @ 100 mls/hr IVPB ONCE ONE Rx#:[id number] Diltiazem 125 mg In 56.167 Sodium Chloride 0.9% 100 ml @ 5 MG/HR 5 mls/hr IV .Q24H [facility] Rx#:[id number] Insulin Regular 100 unit 0.345 11.220 In Sodium Chloride 0.9% 100 ml @ Per Protocol IV .Q0M [facility] Rx#:[id number] Lactated Ringers 1,000 ml 50 @ 20 mls/hr IV .Q24H [facility] Rx#:[id number] ceFAZolin 2 gm In Sodium 50 Chloride 0.9% 50 ml @ 100 mls/hr IVPB Q8H [facility] Rx#: [id number] propofoL 1,000 mg In 21.700 Empty Bag 1 bag @ Titrate IV .Q0M [facility] Rx#: [id number] Output: Chest Tube Drainage 230 553 100 left pleural 90 233 40 mediastinal 140 320 60 Urine 1335 1265 205 Estimated Blood Loss 900 Other: Voiding Method Indwelling Catheter Indwelling Catheter Indwelling Catheter ABP, PAP, CO, CI - Last Documented Arterial Blood Pressure 136/59 Pulmonary Artery Pressure 20/10 Cardiac Output 4.9 Cardiac Index 2.3 - Exam GENERAL EXAM: Patient is alert and oriented and doesn't appear to be in any acute distress HEENT: Normocephalic. Normal reaction of pupils, equal size, normal range of extraocular motion. No erythema or exudates in the throat. NECK: No masses, no nuchal rigidity. CHEST: Postsurgical LUNGS: Diminished breath sounds at bases HEART: [S1 and S2 normal with no audible mumurs or gallops. Regular rhythm, femorals equal on both sides..] ABDOMEN: No hepatosplenomegaly, normal bowel sounds, no guarding or rigidity. SKIN: No rashes CENTRAL NERVOUS SYSTEM: No focal deficits. EXTREMITIES: [No cyanosis, clubbing or edema.] - Labs CBC & Chem 7: 07/29/21 04:15 07/29/21 04:15 Labs: Abnormal Lab Results - Last 24 Hours (Table) 07/20/21 07/28/21 07/28/21 Range/Units 09:00 14:00 14:00 WBC 11.8 H (3.8-10.6) k/uL RBC 3.35 L (4.30-5.90) m/uL Hgb 10.1 L D (13.0-17.5) gm/dL Hct 29.9 L (39.0-53.0) % Plt Count 124 L D (150-450) k/uL Neutrophils # 10.4 H (1.3-7.7) k/uL Lymphocytes # 0.8 L (1.0-4.8) k/uL APTT 36.1 H (22.0-30.0) sec ABG pO2 (83-108) mmHg ABG Total CO2 (19-24) mmol/L ABG O2 Saturation (94-97) % Chloride (98-107) mmol/L Carbon Dioxide (22-30) mmol/L Glucose (74-99) mg/dL POC Glucose (mg/dL) (75-99) mg/dL Calcium (8.4-10.2) mg/dL Ionized Calcium Tiffany (4.5-5.3) mg/dL Magnesium (1.6-2.3) mg/dL AST (17-59) U/L ALT (4-49) U/L Alkaline Phosphatase (38-126) U/L Total Protein (6.3-8.2) g/dL Albumin (3.5-5.0) g/dL Crossmatch See Detail 07/28/21 07/28/21 07/28/21 Range/Units 14:00 14:10 14:34 WBC (3.8-10.6) k/uL RBC (4.30-5.90) m/uL Hgb (13.0-17.5) gm/dL Hct (39.0-53.0) % Plt Count (150-450) k/uL Neutrophils # (1.3-7.7) k/uL Lymphocytes # (1.0-4.8) k/uL APTT (22.0-30.0) sec ABG pO2 324 H (83-108) mmHg ABG Total CO2 26 H (19-24) mmol/L ABG O2 Saturation 100.0 H (94-97) % Chloride 110 H (98-107) mmol/L Carbon Dioxide 21 L (22-30) mmol/L Glucose 112 H (74-99) mg/dL POC Glucose (mg/dL) 114 H (75-99) mg/dL Calcium 7.3 L (8.4-10.2) mg/dL Ionized Calcium Tiffany 4.2 L (4.5-5.3) mg/dL Magnesium 2.5 H (1.6-2.3) mg/dL AST 79 H (17-59) U/L ALT 79 H (4-49) U/L Alkaline Phosphatase 26 L (38-126) U/L Total Protein 4.7 L (6.3-8.2) g/dL Albumin 2.9 L (3.5-5.0) g/dL Crossmatch 07/28/21 07/28/21 07/28/21 Range/Units 14:59 16:02 16:50 WBC 14.0 H (3.8-10.6) k/uL RBC 3.35 L (4.30-5.90) m/uL Hgb 10.2 L (13.0-17.5) gm/dL Hct 30.1 L (39.0-53.0) % Plt Count 136 L (150-450) k/uL Neutrophils # 12.0 H (1.3-7.7) k/uL Lymphocytes # (1.0-4.8) k/uL APTT (22.0-30.0) sec ABG pO2 (83-108) mmHg ABG Total CO2 (19-24) mmol/L ABG O2 Saturation (94-97) % Chloride (98-107) mmol/L Carbon Dioxide (22-30) mmol/L Glucose (74-99) mg/dL POC Glucose (mg/dL) 101 H 126 H (75-99) mg/dL Calcium (8.4-10.2) mg/dL Ionized Calcium Tiffany (4.5-5.3) mg/dL Magnesium (1.6-2.3) mg/dL AST (17-59) U/L ALT (4-49) U/L Alkaline Phosphatase (38-126) U/L Total Protein (6.3-8.2) g/dL Albumin (3.5-5.0) g/dL Crossmatch 07/28/21 07/28/21 07/28/21 Range/Units 16:52 17:59 19:06 WBC (3.8-10.6) k/uL RBC (4.30-5.90) m/uL Hgb (13.0-17.5) gm/dL Hct (39.0-53.0) % Plt Count (150-450) k/uL Neutrophils # (1.3-7.7) k/uL Lymphocytes # (1.0-4.8) k/uL APTT (22.0-30.0) sec ABG pO2 (83-108) mmHg ABG Total CO2 (19-24) mmol/L ABG O2 Saturation (94-97) % Chloride (98-107) mmol/L Carbon Dioxide (22-30) mmol/L Glucose (74-99) mg/dL POC Glucose (mg/dL) 136 H 139 H 142 H (75-99) mg/dL Calcium (8.4-10.2) mg/dL Ionized Calcium Tiffany (4.5-5.3) mg/dL Magnesium (1.6-2.3) mg/dL AST (17-59) U/L ALT (4-49) U/L Alkaline Phosphatase (38-126) U/L Total Protein (6.3-8.2) g/dL Albumin (3.5-5.0) g/dL Crossmatch 07/28/21 07/28/21 07/28/21 Range/Units 19:13 19:41 19:47 WBC 13.5 H (3.8-10.6) k/uL RBC 3.26 L (4.30-5.90) m/uL Hgb 10.0 L (13.0-17.5) gm/dL Hct 29.9 L (39.0-53.0) % Plt Count 127 L (150-450) k/uL Neutrophils # 12.3 H (1.3-7.7) k/uL Lymphocytes # 0.5 L (1.0-4.8) k/uL APTT (22.0-30.0) sec ABG pO2 121 H (83-108) mmHg ABG Total CO2 26 H (19-24) mmol/L ABG O2 Saturation 99.5 H (94-97) % Chloride (98-107) mmol/L Carbon Dioxide (22-30) mmol/L Glucose (74-99) mg/dL POC Glucose (mg/dL) 152 H (75-99) mg/dL Calcium (8.4-10.2) mg/dL Ionized Calcium Tiffany (4.5-5.3) mg/dL Magnesium (1.6-2.3) mg/dL AST (17-59) U/L ALT (4-49) U/L Alkaline Phosphatase (38-126) U/L Total Protein (6.3-8.2) g/dL Albumin (3.5-5.0) g/dL Crossmatch 07/28/21 07/28/21 07/28/21 Range/Units 21:07 22:12 23:06 WBC (3.8-10.6) k/uL RBC (4.30-5.90) m/uL Hgb (13.0-17.5) gm/dL Hct (39.0-53.0) % Plt Count (150-450) k/uL Neutrophils # (1.3-7.7) k/uL Lymphocytes # (1.0-4.8) k/uL APTT (22.0-30.0) sec ABG pO2 (83-108) mmHg ABG Total CO2 (19-24) mmol/L ABG O2 Saturation (94-97) % Chloride (98-107) mmol/L Carbon Dioxide (22-30) mmol/L Glucose (74-99) mg/dL POC Glucose (mg/dL) 157 H 142 H 133 H (75-99) mg/dL Calcium (8.4-10.2) mg/dL Ionized Calcium [place] (4.5-5.3) mg/dL Magnesium (1.6-2.3) mg/dL AST (17-59) U/L ALT (4-49) U/L Alkaline Phosphatase (38-126) U/L Total Protein (6.3-8.2) g/dL Albumin (3.5-5.0) g/dL Crossmatch 07/29/21 07/29/21 07/29/21 Range/Units 00:02 01:07 01:57 WBC (3.8-10.6) k/uL RBC (4.30-5.90) m/uL Hgb (13.0-17.5) gm/dL Hct (39.0-53.0) % Plt Count (150-450) k/uL Neutrophils # (1.3-7.7) k/uL Lymphocytes # (1.0-4.8) k/uL APTT (22.0-30.0) sec ABG pO2 (83-108) mmHg ABG Total CO2 (19-24) mmol/L ABG O2 Saturation (94-97) % Chloride (98-107) mmol/L Carbon Dioxide (22-30) mmol/L Glucose (74-99) mg/dL POC Glucose (mg/dL) 127 H 132 H 128 H (75-99) mg/dL Calcium (8.4-10.2) mg/dL Ionized Calcium [place] (4.5-5.3) mg/dL Magnesium (1.6-2.3) mg/dL AST (17-59) U/L ALT (4-49) U/L Alkaline Phosphatase (38-126) U/L Total Protein (6.3-8.2) g/dL Albumin (3.5-5.0) g/dL Crossmatch 07/29/21 07/29/21 07/29/21 Range/Units 02:55 04:15 04:15 WBC 13.6 H (3.8-10.6) k/uL RBC 3.33 L (4.30-5.90) m/uL Hgb 10.1 L (13.0-17.5) gm/dL Hct 29.7 L (39.0-53.0) % Plt Count 142 L (150-450) k/uL Neutrophils # 12.2 H (1.3-7.7) k/uL Lymphocytes # 0.6 L (1.0-4.8) k/uL APTT (22.0-30.0) sec ABG pO2 (83-108) mmHg ABG Total CO2 (19-24) mmol/L ABG O2 Saturation (94-97) % Chloride 108 H (98-107) mmol/L Carbon Dioxide (22-30) mmol/L Glucose 128 H (74-99) mg/dL POC Glucose (mg/dL) 133 H (75-99) mg/dL Calcium 8.1 L (8.4-10.2) mg/dL Ionized Calcium Tiffany (4.5-5.3) mg/dL Magnesium (1.6-2.3) mg/dL AST 74 H (17-59) U/L ALT 69 H (4-49) U/L Alkaline Phosphatase 29 L (38-126) U/L Total Protein 5.0 L (6.3-8.2) g/dL Albumin 3.2 L (3.5-5.0) g/dL Crossmatch 07/29/21 07/29/21 07/29/21 Range/Units 04:17 06:35 07:21 WBC (3.8-10.6) k/uL RBC (4.30-5.90) m/uL Hgb (13.0-17.5) gm/dL Hct (39.0-53.0) % Plt Count (150-450) k/uL Neutrophils # (1.3-7.7) k/uL Lymphocytes # (1.0-4.8) k/uL APTT (22.0-30.0) sec ABG pO2 (83-108) mmHg ABG Total CO2 (19-24) mmol/L ABG O2 Saturation (94-97) % Chloride (98-107) mmol/L Carbon Dioxide (22-30) mmol/L Glucose (74-99) mg/dL POC Glucose (mg/dL) 125 H 139 H 132 H (75-99) mg/dL Calcium (8.4-10.2) mg/dL Ionized Calcium [place] (4.5-5.3) mg/dL Magnesium (1.6-2.3) mg/dL AST (17-59) U/L ALT (4-49) U/L Alkaline Phosphatase (38-126) U/L Total Protein (6.3-8.2) g/dL Albumin (3.5-5.0) g/dL Crossmatch 07/29/21 07/29/21 Range/Units 08:30 11:53 WBC (3.8-10.6) k/uL RBC (4.30-5.90) m/uL Hgb (13.0-17.5) gm/dL Hct (39.0-53.0) % Plt Count (150-450) k/uL Neutrophils # (1.3-7.7) k/uL Lymphocytes # (1.0-4.8) k/uL APTT (22.0-30.0) sec ABG pO2 (83-108) mmHg ABG Total CO2 (19-24) mmol/L ABG O2 Saturation (94-97) % Chloride (98-107) mmol/L Carbon Dioxide (22-30) mmol/L Glucose (74-99) mg/dL POC Glucose (mg/dL) 129 H 149 H (75-99) mg/dL Calcium (8.4-10.2) mg/dL Ionized Calcium Tiffany (4.5-5.3) mg/dL Magnesium (1.6-2.3) mg/dL AST (17-59) U/L ALT (4-49) U/L Alkaline Phosphatase (38-126) U/L Total Protein (6.3-8.2) g/dL Albumin (3.5-5.0) g/dL Crossmatch Microbiology - Last 24 Hours (Table) 07/28/21 09:35 Urine Culture - Preliminary Urine,Catheterized Assessment and Plan (1) Status post aorto-coronary artery bypass graft Current Visit: Yes Status: Acute Code(s): Z95.1 - PRESENCE OF AORTOCORONARY BYPASS GRAFT SNOMED Code(s): 770724484 (2) CAD (coronary artery disease) Current Visit: Yes Status: Acute Code(s): I25.10 - ATHSCL HEART DISEASE OF [place] CORONARY ARTERY W/O ANG PCTRS SNOMED Code(s): 36095520 (3) Hyperlipidemia Current Visit: Yes Status: Acute Code(s): E78.5 - HYPERLIPIDEMIA, UNSPECIFIED SNOMED Code(s): 21462596 Plan: Patient is progressing well. No arrhythmias. Hemodynamically stable. Continue current medical therapy. Increase activity as tolerated. Incentive spirometry
[2021-07-29] MEDS: INSULIN ASPART (NovoLOG) 100 UNIT/ML VIAL SQ SCH ×3 (12:01→20:56)
[2021-07-29 16:44] LABS: Glucose,Whole Blood 133 mg/dL (75-99)
[2021-07-29] MEDS ORDERED: KETOROLAC 30 MG/ML 1 ML VIAL IVP PRN (17:26)
[2021-07-29 20:42] LABS: Glucose,Whole Blood 152 mg/dL (75-99)
[2021-07-29] MEDS: SENNOSIDES-DOCUSATE SODIUM 1 EACH TAB PO SCH (20:56)
[2021-07-30 05:51] LABS: Basophils % (A) 0 %; Eosinophils % (A) 0 %; HCT 28.5 % (39.0-53.0); HGB 9.6 gm/dL (13.0-17.5); Lymphocytes # (A) 1.1 k/uL (1.0-4.8); Lymphocytes % (A) 7 %; MCH 30.3 pg (25.0-35.0); MCHC 33.6 g/dL (31.0-37.0); MCV 90.1 fL (80.0-100.0); Mean Platelet Volume 9.8; Monocytes # (A) 0.9 k/uL (0-1.0); Monocytes % (A) 6 %; Neutrophils % (A) 86 %; Platelet Count 150 k/uL (150-450); RBC 3.16 m/uL (4.30-5.90); WBC 16.2 k/uL (3.8-10.6)
[2021-07-30 06:15] LABS: Ionized Calcium 4.9 mg/dL (4.5-5.3)
[2021-07-30] MEDS: IPRATROPIUM-ALBUTEROL 3 ML NEB INHALATION SCH ×4 (07:29→20:18)
--- NOTE | 2021-07-30 07:36 | P.PN ---
Subjective Progress Note Date: 07/30/21 Principal diagnosis: Multivessel coronary artery disease with recent STEMI and drug-eluting stent placement to the second obtuse marginal artery 05/22/2021, history of dyslipidemia, BPH status post TURP, never smoker, preoperative urine culture positive for enterococcus faecalis POD #2 coronary artery bypass grafting 4 with the left internal mammary artery to the left anterior descending artery, left radial artery to the first obtuse marginal artery, reverse saphenous vein graft to the second obtuse marginal artery, and reverse saphenous vein graft to the PDA, endoscopic vein harvest of the left greater saphenous vein, endoscopic harvest of the left radial artery, ligation of the left atrial appendage with a 35 mm AtriClip, epi-aortic ultrasound, intraoperative transesophageal echocardiogram by anesthesia, and closure of the sternum with titanium plating Postoperative acute blood loss anemia and thrombocytopenia, expected given hemodilution and cardiopulmonary bypass pump as well as preoperative use of Effient The patient was seen and examined this morning in the intensive care unit. He was sitting up in a recliner in no acute distress. States postsurgical pain is controlled on current medication regimen, denies shortness of breath. Remains in sinus rhythm to sinus tach with heart rate in the high 90s to low 100s, hemodynamically stable on no inotropes or pressors. Left internal jugular Cordis, right radial arterial line, mediastinal/left pleural chest tubes all remain. No other concerns noted. Objective - Vital Signs Vital signs: Vital Signs Temp 98.8 F 07/30/21 04:00 Pulse 102 H 07/30/21 06:02 Resp 22 07/30/21 06:02 BP 102/60 07/30/21 06:02 Pulse Ox 95 07/30/21 06:02 Intake & Output 07/29/21 07/30/21 07/30/21 18:59 06:59 18:59 Intake Total 1108.75 1026 Output Total 745 1010 Balance 363.75 16 Weight 91.1 kg 91.3 kg Intake: IV 499.5 306 Lactated Ringers 1,000 ml 360 240 @ 20 mls/hr IV .Q24H [facility] Rx#:[id number] Nitroglycerin-D5w Pmx 50 1.5 mg In Dextrose/Water 1 250ml.bag @ 5 MCG/MIN 1.5 mls/hr IV .Q24H [facility] Rx#: [id number] cardiac output 40 ceFAZolin 2 gm In Sodium 50 Chloride 0.9% 50 ml @ 100 mls/hr IVPB Q8H [facility] Rx#: [id number] pressure bags 48 66 Intake, IV Titration 49.25 Amount Diltiazem 125 mg In 49.25 Sodium Chloride 0.9% 100 ml @ 5 MG/HR 5 mls/hr IV .Q24H [facility] Rx#:[id number] Oral 560 720 Output: Chest Tube Drainage 270 420 left pleural 140 320 mediastinal 130 100 Urine 475 590 Other: Voiding Method Indwelling Catheter Indwelling Catheter ABP, PAP, CO, CI - Last Documented Arterial Blood Pressure 100/41 Pulmonary Artery Pressure 20/10 Cardiac Output 4.9 Cardiac Index 2.3 - Exam CONSTITUTIONAL: Appears comfortable, cooperative, no acute distress RESPIRATORY: Lungs sounds diminished bilaterally. Respirations even, nonlabored. Currently on 2 L nasal cannula with oxygen saturation 95%. Able to achieve 750 mL on incentive spirometry. Strong cough. CARDIOVASCULAR: S1, S2 present. Regular rate and rhythm, sinus rhythm to sinus tach with heart rate in the high 90s to low 100s. Sternum stable. Palpable peripheral pulses bilaterally. No edema present. No calf pain or tenderness noted. Heart hugger in place with patient demonstrating appropriate use. Antiembolism stockings, SCDs present. GASTROINTESTINAL: Abdomen soft, nontender, nondistended. Hypoactive bowel sounds present 4 quadrants. Tolerating diet. Negative flatus, positive belching GENITOURINARY: Cardenas discontinued this morning. Output overnight 40-70 mL per hour, 1065 mL in the last 24 hours INTEGUMENTARY: Skin is warm and dry with evidence of good perfusion. Anterior chest incision well approximated and covered with dry intact dressing. Left lower extremity EVH site well approximated without redness or drainage. Left radial artery harvest site well approximated without redness or drainage, patient able to wiggle fingers and curtain mender appropriately, good cap refill NEUROLOGIC: Cranial nerves II through XII intact MUSKULOSKELETAL: Able to move all extremities, strength equal bilaterally, gait normal PSYCHIATRIC: Alert and oriented to person place and time, appropriate affect, intact judgment and insight INVASIVE LINES AND TUBES: Mediastinal/left pleural chest tubes present and connected to wall suction, no air leaks present. Mediastinal tube with 60 mL serosanguineous drainage overnight, 210 mL in the last 24 hours. Left pleural chest tube with 290 mL serosanguineous drainage overnight, 450 mL in the last 24 hours. A/V epicardial pacemaker wires present, connected to generator, backup rate 50 bpm. Left internal jugular Cordis, right radial arterial line present. - Allied health notes Allied health notes reviewed: nursing - Labs CBC & Chem 7: 07/30/21 05:15 07/30/21 05:15 Labs: Abnormal Lab Results - Last 24 Hours (Table) 07/29/21 07/29/21 07/29/21 Range/Units 08:30 11:53 16:43 WBC (3.8-10.6) k/uL RBC (4.30-5.90) m/uL Hgb (13.0-17.5) gm/dL Hct (39.0-53.0) % Neutrophils # (1.3-7.7) k/uL POC Glucose (mg/dL) 129 H 149 H 133 H (75-99) mg/dL 07/29/21 07/30/21 Range/Units 20:41 05:15 WBC 16.2 H (3.8-10.6) k/uL RBC 3.16 L (4.30-5.90) m/uL Hgb 9.6 L (13.0-17.5) gm/dL Hct 28.5 L (39.0-53.0) % Neutrophils # 14.0 H (1.3-7.7) k/uL POC Glucose (mg/dL) 152 H (75-99) mg/dL Microbiology - Last 24 Hours (Table) 07/28/21 09:35 Urine Culture - Preliminary Urine,Catheterized Group D Enterococcus - Imaging and Cardiology Chest x-ray: image reviewed Assessment and Plan Assessment: 1. Multivessel coronary artery disease with recent STEMI and drug-eluting stent placement to the second obtuse marginal artery 05/22/2021, status post four- vessel CABG 2. History of dyslipidemia, treated, cholesterol 101, LDL 43, triglycerides 74 3. BPH status post TURP 4. Never smoker, preoperative FEV1 93% of predicted 5. Preoperative urine culture positive for enterococcus faecalis 6. Postoperative acute blood loss anemia and thrombocytopenia, expected 7. Vaccinated with Moderna, last dose May 2021 Plan: 1. Continue aspirin, statin, Plavix, beta james therapy. Will increase beta james therapy as tolerated 2. Continue low-dose calcium channel james for radial artery spasm prophylaxis. Do not discontinue CCB without discussed with cardiac surgery 3. Wean O2 as tolerated. Encourage incentive spirometry use 10 times every hour while awake. Bronchodilators per pulmonology 4. Increase activity, ambulate as tolerated. PT/OT/cardiac rehab consulted 5. Will monitor daily labs and x-rays. Electrolyte replacement per protocol. Will start bactrim due to leukocytosis with preliminary urine culture again positive for enterococcus species 6. GI/DVT prophylaxis 7. Pain control with current medication regimen 8. Insulin management per primary care service. Patient is not diabetic, preoperative hemoglobin A1c 5.7%. Needs tight blood sugar control to promote sternal union and prevent infection 9. Will discontinue Cordis, arterial line 10. Will discontinue mediastinal chest tube, continue left pleural chest tube for another 24 hours 11. Cardenas catheter discontinued. May bladder scan and straight cath for greater than 300 mL residual. Patient does have a history of BPH status post TURP, may need to initiate Proscar if patient has difficulty emptying bladder 12. Strict accurate intake and output. Daily weights 13. Will place transfer orders for [address] [place] [address] cardiac stepdown unit. May transfer when bed available 14. More recommendations to follow based on patient's progress Time with Patient: Greater than 30
[2021-07-30 07:39] LABS: ALT 44 U/L (4-49); AST 42 U/L (17-59); African American GFR (CKD) >90 (>60 ml/min/1.73 sqM); Albumin 2.9 g/dL (3.5-5.0); Alkaline Phosphatase 34 U/L (38-126); Anion Gap 6 mmol/L; Blood Urea Nitrogen 22 mg/dL (9-20); Calcium 8.5 mg/dL (8.4-10.2); Carbon Dioxide 24 mmol/L (22-30); Chloride 105 mmol/L (98-107); Glucose 142 mg/dL (74-99); Non-African American GFR(CKD) 79 (>60 ml/min/1.73 sqM); Potassium 4.2 mmol/L (3.5-5.1); Sodium 135 mmol/L (137-145); Total Bilirubin 1.4 mg/dL (0.2-1.3); Total Protein 5.1 g/dL (6.3-8.2)
[2021-07-30] MEDS: HYDROcodone/APAP 5-325MG 1 EACH TAB PO PRN ×2 (08:04→19:11)
[2021-07-30] MEDS: HEPARIN SODIUM,PORCINE/PF 5,000 UNIT/0.5 ML SYRINGE SQ SCH ×3 (08:11→23:14)
[2021-07-30] MEDS: PANTOPRAZOLE 40 MG TABLET PO SCH (08:11)
[2021-07-30] MEDS: INSULIN ASPART (NovoLOG) 100 UNIT/ML VIAL SQ SCH ×4 (08:12→20:46)
--- NOTE | 2021-07-30 08:52 | XR ---
EXAMINATION TYPE: XR chest 1V portable DATE OF EXAM: 07/30/2021 COMPARISON: 07/29/2021 HISTORY: Postop TECHNIQUE: Single frontal view of the chest is obtained. FINDINGS: [place] catheter has been removed with no sizable pneumothorax. Interstitial pattern wit h bilateral infiltrate and pleural effusion. Mediastinal drain and chest tube. Postsurgical changes. IMPRESSION: Postoperative changes with basilar consolidation and pleural effusion correlate for mild venous congestion.
[2021-07-30] MEDS: ATORVASTATIN 40 MG TAB PO SCH (08:57)
[2021-07-30] MEDS: ASPIRIN 325 MG TAB PO SCH (08:57)
[2021-07-30] MEDS: CLOPIDOGREL 75 MG TAB PO SCH (08:57)
[2021-07-30] MEDS: METOPROLOL TARTRATE 12.5 MG TAB PO SCH ×2 (08:57→20:45)
[2021-07-30] MEDS ORDERED: SULFAMETHOX-TMP 800-160MG 1 EACH TAB PO SCH (09:00)
--- NOTE | 2021-07-30 09:10 | P.PN ---
Subjective Progress Note Date: 07/30/21 The patient is seen today 07/30/2021 in follow-up. His postoperative day #2 of coronary artery bypass grafting 4 with a THOMAS to the LAD, left radial artery to the first obtuse marginal, reverse saphenous vein graft to the second obtuse marginal and PDA. He is doing quite well. He sitting up in a chair at the bedside. Awake and alert in no acute distress. Obtain O2 saturations in the 90s on 2 L/m per nasal cannula. He is afebrile. Hemodynamically stable. X-ray shows basilar consolidation and pleural effusions with mild venous congestion. Her culture is positive for group D enterococcus. Count 16.2. Hemoglobin 9.6. Platelets 150. Sodium 135. Potassium 4.2. Creatinine 0.97. AST 42. ALT 44. Albumin 2.9. Glucose 142. He did receive albumin yesterday. Cardiac output 4.9. Cardiac index 2.3. He remains on bronchodilators. Heparin for DVT prophylaxis. Lactated Ringer's at 50 MLS per hour. The plan is to initiate Bactrim. Mediastinal and left pleural chest tubes remain in place. Pacer wires in place and grafted. Cordis will be discontinued. Arterial line will be discontinued. He is pulling approximate 750 MLS on the incentive spirometer. We will increase his activity as tolerated. Objective - Vital Signs Vital signs: Vital Signs Temp 99.5 F 07/30/21 08:00 Pulse 111 H 07/30/21 08:00 Resp 23 07/30/21 08:00 BP 100/59 07/30/21 08:00 Pulse Ox 94 L 07/30/21 08:00 Intake & Output 07/29/21 07/30/21 07/30/21 18:59 06:59 18:59 Intake Total 1108.75 1026 286 Output Total 745 1010 20 Balance 363.75 16 266 Weight 91.1 kg 91.3 kg Intake: IV 499.5 306 46 Lactated Ringers 1,000 ml 360 240 40 @ 20 mls/hr IV .Q24H [facility] Rx#:[id number] Nitroglycerin-D5w Pmx 50 1.5 mg In Dextrose/Water 1 250ml.bag @ 5 MCG/MIN 1.5 mls/hr IV .Q24H [facility] Rx#: [id number] cardiac output 40 ceFAZolin 2 gm In Sodium 50 Chloride 0.9% 50 ml @ 100 mls/hr IVPB Q8H [facility] Rx#: [id number] pressure bags 48 66 6 Intake, IV Titration 49.25 Amount Diltiazem 125 mg In 49.25 Sodium Chloride 0.9% 100 ml @ 5 MG/HR 5 mls/hr IV .Q24H [facility] Rx#:[id number] Oral 560 720 240 Output: Chest Tube Drainage 270 420 20 left pleural 140 320 0 mediastinal 130 100 20 Urine 475 590 Other: Voiding Method Indwelling Catheter Indwelling Catheter ABP, PAP, CO, CI - Last Documented Arterial Blood Pressure 100/41 Pulmonary Artery Pressure 20/10 Cardiac Output 4.9 Cardiac Index 2.3 - Exam The patient is a very pleasant 71-year-old gentleman, sitting up on a chair and he is calm and comfortable. He is currently on oxygen 2 L per minute nasal cannula. Head exam was generally normal. There was no scleral icterus or corneal arcus. Mucous membranes were moist. Neck is supple and the patient has a left IJ Cordis in place Lungs sounds are equal and symmetrical diminished, crackles in lung bases. The patient has a mediastinal and left pleural chest tube. Thoracotomy dressing is dry clean and intact Cardiac exam revealed the PMI to be normally situated and sized. The rhythm was regular and no extrasystoles were noted during several minutes of auscultation. The first and second heart sounds were normal and physiologic splitting of the second heart sound was noted. There were no murmurs, rubs, clicks, or gallops. Abdominal exam revealed normal bowel sounds. The abdomen was soft, non-tender, and without masses, organomegaly, or appreciable enlargement of the abdominal aorta. Extremities revealed no significant edema cyanosis or clubbing. Surgical wound site over the left radial artery site is dry clean and intact. - Labs CBC & Chem 7: 07/30/21 05:15 07/30/21 05:15 Labs: Abnormal Lab Results - Last 24 Hours (Table) 07/29/21 07/29/21 07/29/21 Range/Units 11:53 16:43 20:41 WBC (3.8-10.6) k/uL RBC (4.30-5.90) m/uL Hgb (13.0-17.5) gm/dL Hct (39.0-53.0) % Neutrophils # (1.3-7.7) k/uL Sodium (137-145) mmol/L BUN (9-20) mg/dL Glucose (74-99) mg/dL POC Glucose (mg/dL) 149 H 133 H 152 H (75-99) mg/dL Total Bilirubin (0.2-1.3) mg/dL Alkaline Phosphatase (38-126) U/L Total Protein (6.3-8.2) g/dL Albumin (3.5-5.0) g/dL 07/30/21 07/30/21 Range/Units 05:15 05:15 WBC 16.2 H (3.8-10.6) k/uL RBC 3.16 L (4.30-5.90) m/uL Hgb 9.6 L (13.0-17.5) gm/dL Hct 28.5 L (39.0-53.0) % Neutrophils # 14.0 H (1.3-7.7) k/uL Sodium 135 L (137-145) mmol/L BUN 22 H (9-20) mg/dL Glucose 142 H (74-99) mg/dL POC Glucose (mg/dL) (75-99) mg/dL Total Bilirubin 1.4 H (0.2-1.3) mg/dL Alkaline Phosphatase 34 L (38-126) U/L Total Protein 5.1 L (6.3-8.2) g/dL Albumin 2.9 L (3.5-5.0) g/dL Microbiology - Last 24 Hours (Table) 07/28/21 09:35 Urine Culture - Preliminary Urine,Catheterized Group D Enterococcus Assessment and Plan Assessment: 1 symptomatic multivessel coronary artery disease and the patient underwent four-vessel bypass surgery and the patient is currently paced postop day #2. The patient had THOMAS to LAD and radial arterial graft to to OM1, SVG to OM 2, SVG to PDA. The patient is hemodynamically stable on no pressors. Hemod ynamically stable. Awake and alert 2 acute hypoxic respiratory failure, post thoracotomy and bypass surgery. Extubated no issues on 2 L of oxygen by nasal cannula. Output from the chest tube has been noted, using incentive spirometer 3 known history of coronary artery disease with previous STEMI with stenting of OM 2 4 hyperlipidemia 5 chronic cough 6 environmental ALLERGIES 7 BPH 8 Urinary tract infection secondary to group D Streptococcus Plan The patient was seen and evaluated by Dr. Rosenberg Chest x-ray and labs reviewed The plan is to initiate Bactrim per CT services Possible Lasix later this afternoon Mediastinal chest tubes to be removed, Cordis to be removed, are going to be removed Pacer wires grounded Downgraded to 3 S. Encouraged increased use of the incentive spirometer Titrate the FiO2 as tolerated Increase his activity as tolerated We will continue to follow I, the cosigning physician, performed a history & physical examination of the patient. Lungs sounds crackles in the bilateral bases. Maintaining good O2 saturations in the 90s on 2 L/m per nasal. I discussed the assessment and plan of care with my nurse practitioner, Renetta Lindo. I attest to the above note as dictated by her.
--- NOTE | 2021-07-30 10:49 | P.CONS ---
History of Present Illness - Reason for Consult Consult date: 07/30/21 Medical management Requesting physician: Beny Gramajo - Chief Complaint Coronary artery disease - History of Present Illness This is a 71-year-old male patient of Dr. Holland who was found to have coronary artery disease. Patient was recently evaluated for chest pain and was found to have an acute ST elevated PR in which he underwent stenting of the OM and at that time a catheterization also showed significant left main disease with triple-vessel involvement and he was referred to undergo coronary artery bypass graft surgery. Patient underwent coronary artery bypass graft surgery with four-vessel bypass on 07/28/[address] gramajo. Additional medical history includes hernia and prostate disorder. Patient is currently postop day 2 resting comfortably in the intensive care unit. Patient currently off all drips chest tubes remain in place. Patient reports some mild discomfort to surgical site with activity. Patient denies any significant chest pain or shortness breath. Patient denies nausea vomiting or diarrhea. Patient denies any urinary burning or frequency Review of Systems Please refer to HPI otherwise unremarkable Past Medical History Past Medical History: Coronary Artery Disease (CAD), Myocardial Infarction (PR), Prostate Disorder Additional Past Medical History / Comment(s): hx HERNIA Last Myocardial Infarction Date:: 05-22-21 History of Any Multi-Drug Resistant Organisms: None Reported Past Surgical History: Heart Catheterization With Stent, Hernia Repair Additional Past Surgical History / Comment(s): TURP Past Anesthesia/Blood Transfusion Reactions: No Reported Reaction Additional Past Anesthesia/Blood Transfusion Reaction / Comm: no hx blood transfusion Date of Last Stent Placement:: 05-22-21 Smoking Status: Never smoker - Past Family History Sister(s) Family Medical History: Cancer Additional Family Medical History / Comment(s): THROAT CA Medications and Allergies Home Medications Medication Instructions Recorded Confirmed Type Multivitamins, Thera [Multivitamin 1 tab PO DAILY 04/05/19 07/28/21 History (formulary)] Aspirin 81 mg PO BID 07/20/21 07/28/21 History Atorvastatin [Lipitor] 40 mg PO DAILY 07/20/21 07/28/21 History Enoxaparin [Lovenox] 40 mg SQ Q12H #10 each 07/20/21 07/28/21 Rx Ezetimibe [Zetia] 10 mg PO DAILY 07/20/21 07/28/21 History Irbesartan 75 mg PO DAILY 07/20/21 07/28/21 History Metoprolol Tartrate [Lopressor] 12.5 mg PO DAILY 07/20/21 07/28/21 History Prasugrel [Effient] 10 mg PO DAILY 07/20/21 07/28/21 History Allergies Allergy/AdvReac Type Severity Reaction Status Date / Time No Known Allergies Allergy Verified 07/28/21 06:48 Physical Exam Vitals: Vital Signs Temp Pulse Resp BP Pulse Ox 07/30/21 10:00 99.1 F 93 25 H 113/63 95 07/30/21 09:00 106 H 17 107/65 94 L 07/30/21 08:00 99.5 F 111 H 23 100/59 94 L 07/30/21 07:43 100 20 07/30/21 07:29 109 H 20 07/30/21 07:00 98 26 H 98/62 96 07/30/21 06:02 102 H 22 102/60 95 07/30/21 05:00 100 19 98/60 93 L 07/30/21 04:00 98.8 F 93 22 90/60 95 07/30/21 03:00 89 22 95/55 94 L 07/30/21 02:00 91 23 99/57 96 07/30/21 01:00 93 21 99/58 94 L 07/30/21 00:00 98.6 F 88 18 108/59 95 07/29/21 23:00 92 22 107/53 96 07/29/21 22:00 90 16 114/67 95 07/29/21 21:00 94 20 126/57 96 07/29/21 20:00 98.8 F 88 29 H 96 07/29/21 19:42 82 07/29/21 19:32 84 07/29/21 19:30 86 28 H 98 07/29/21 19:00 81 25 H 97 07/29/21 18:30 77 20 98 07/29/21 18:00 73 20 98 07/29/21 17:30 80 27 H 98 07/29/21 17:00 80 20 97 07/29/21 16:30 98.1 F 74 18 98 07/29/21 16:00 21 07/29/21 15:30 75 20 99 07/29/21 15:29 74 07/29/21 15:19 68 07/29/21 15:00 73 21 98 07/29/21 14:30 71 19 98 07/29/21 14:00 68 14 100 07/29/21 13:30 71 16 99 07/29/21 13:00 66 17 92/63 100 07/29/21 12:39 64 07/29/21 12:30 63 16 92/63 99 07/29/21 12:27 66 07/29/21 12:00 64 17 92/63 100 07/29/21 11:30 62 16 92/63 99 07/29/21 11:00 62 14 92/63 97 Intake and Output 07/29/21 07/30/21 07/30/21 22:59 06:59 14:59 Intake Total 1113 565 309 Output Total 560 690 40 Balance 553 -125 269 Intake: IV 193 205 69 Lactated Ringers 1,000 ml 160 160 60 @ 20 mls/hr IV .Q24H [facility] Rx#:[id number] pressure bags 33 45 9 Oral 920 360 240 Output: Chest Tube Drainage 170 350 40 left pleural 90 290 0 mediastinal 80 60 40 Urine 390 340 Other: Voiding Method Indwelling Catheter Indwelling Catheter Urinal Weight 91.3 kg ABP, PAP, CO, CI - Last 8 Hours Arterial Blood Pressure 100/48 Arterial Blood Pressure 109/58 Cardiac Output 4.9 Cardiac Output 4.9 Cardiac Output 4.9 Cardiac Output 4.9 Cardiac Output 4.9 Cardiac Output 4.9 Cardiac Index 2.3 Cardiac Index 2.3 Cardiac Index 2.3 Cardiac Index 2.3 Cardiac Index 2.3 Cardiac Index 2.3 Head normocephalic Neck supple Lungs clear to auscultation bilaterally no wheezing or crackles. Chest tubes remain in place Heart regular rate and rhythm S1-S2, no rub or gallop Abdomen is soft nontender nondistended positive bowel sounds no hepatosplenomegaly Extremities no edema Neuro alert and orientated to 3 Results CBC & Chem 7: 07/30/21 05:15 07/30/21 05:15 Labs: Abnormal Lab Results - Last 24 Hours (Table) 07/29/21 07/29/21 07/29/21 Range/Units 11:53 16:43 20:41 WBC (3.8-10.6) k/uL RBC (4.30-5.90) m/uL Hgb (13.0-17.5) gm/dL Hct (39.0-53.0) % Neutrophils # (1.3-7.7) k/uL Sodium (137-145) mmol/L BUN (9-20) mg/dL Glucose (74-99) mg/dL POC Glucose (mg/dL) 149 H 133 H 152 H (75-99) mg/dL Total Bilirubin (0.2-1.3) mg/dL Alkaline Phosphatase (38-126) U/L Total Protein (6.3-8.2) g/dL Albumin (3.5-5.0) g/dL 07/30/21 07/30/21 Range/Units 05:15 05:15 WBC 16.2 H (3.8-10.6) k/uL RBC 3.16 L (4.30-5.90) m/uL Hgb 9.6 L (13.0-17.5) gm/dL Hct 28.5 L (39.0-53.0) % Neutrophils # 14.0 H (1.3-7.7) k/uL Sodium 135 L (137-145) mmol/L BUN 22 H (9-20) mg/dL Glucose 142 H (74-99) mg/dL POC Glucose (mg/dL) (75-99) mg/dL Total Bilirubin 1.4 H (0.2-1.3) mg/dL Alkaline Phosphatase 34 L (38-126) U/L Total Protein 5.1 L (6.3-8.2) g/dL Albumin 2.9 L (3.5-5.0) g/dL Microbiology - Last 24 Hours (Table) 07/28/21 09:35 Urine Culture - Preliminary Urine,Catheterized Group D Enterococcus Assessment and Plan Assessment: 1. Status post coronary artery bypass graft surgery with Dr. gramajo four-vessel on 07/28/2021. Patient is currently postop day 2 2. Known history of coronary artery disease with previous stemi 3. History of hyperlipidemia 4. History of BPH 5. Urinary tract infection positive for group D enterococcus. Per critical care note plans to start Bactrim per cardiothoracic surgery Thank you for this consultation we'll continue to follow patient closely throughout stay
--- NOTE | 2021-07-30 11:32 | P.PN ---
Subjective Progress Note Date: 07/30/21 This is a 71-year-old gentleman who is a status post bypass surgery. Patient seemed to be clinically stable. His hemodynamics are stable. No arrhythmias noted. Patient is sitting up in the chair and seems to be alert and oriented in no acute distress. Complains of soreness of the chest. [place]-Irma catheter then removed. His cardiac output was good. Lungs show some diminished breath sounds at bases. Heart is regular. Overall patient seemed to make good progress. Continue current management. 07/30/2021: This patient continues to progress well. Sitting up in the chair, no acute distress. No arrhythmias. His mediastinal chest tube is going to be taken out. He still has chest tube on the left side. He will be transferred to telemetry unit and increase activity. Overall, patient's his progress fairly well. We will follow Objective - Vital Signs Vital signs: Vital Signs Temp 99.1 F 07/30/21 10:00 Pulse 90 07/30/21 11:00 Resp 26 H 07/30/21 11:00 BP 108/61 07/30/21 11:00 Pulse Ox 95 07/30/21 11:00 Intake & Output 07/29/21 07/30/21 07/30/21 18:59 06:59 18:59 Intake Total 1108.75 1026 352 Output Total 745 1010 40 Balance 363.75 16 312 Weight 91.1 kg 91.3 kg Intake: IV 499.5 306 112 Lactated Ringers 1,000 ml 360 240 100 @ 20 mls/hr IV .Q24H [facility] Rx#:[id number] Nitroglycerin-D5w Pmx 50 1.5 mg In Dextrose/Water 1 250ml.bag @ 5 MCG/MIN 1.5 mls/hr IV .Q24H [facility] Rx#: [id number] cardiac output 40 ceFAZolin 2 gm In Sodium 50 Chloride 0.9% 50 ml @ 100 mls/hr IVPB Q8H [facility] Rx#: [id number] pressure bags 48 66 12 Intake, IV Titration 49.25 Amount Diltiazem 125 mg In 49.25 Sodium Chloride 0.9% 100 ml @ 5 MG/HR 5 mls/hr IV .Q24H [facility] Rx#:[id number] Oral 560 720 240 Output: Chest Tube Drainage 270 420 40 left pleural 140 320 0 mediastinal 130 100 40 Urine 475 590 Other: Voiding Method Indwelling Catheter Indwelling Catheter Urinal ABP, PAP, CO, CI - Last Documented Arterial Blood Pressure 100/48 Pulmonary Artery Pressure 20/10 Cardiac Output 4.9 Cardiac Index 2.3 - Exam GENERAL EXAM: Patient is alert and oriented and doesn't appear to be in any acute distress HEENT: Normocephalic. Normal reaction of pupils, equal size, normal range of extraocular motion. No erythema or exudates in the throat. NECK: No masses, no nuchal rigidity. CHEST: Postsurgical LUNGS: Diminished breath sounds at bases HEART: [S1 and S2 normal with no audible mumurs or gallops. Regular rhythm, femorals equal on both sides..] ABDOMEN: No hepatosplenomegaly, normal bowel sounds, no guarding or rigidity. SKIN: No rashes CENTRAL NERVOUS SYSTEM: No focal deficits. EXTREMITIES: [No cyanosis, clubbing or edema.] - Labs CBC & Chem 7: 07/30/21 05:15 07/30/21 05:15 Labs: Abnormal Lab Results - Last 24 Hours (Table) 07/29/21 07/29/21 07/29/21 Range/Units 11:53 16:43 20:41 WBC (3.8-10.6) k/uL RBC (4.30-5.90) m/uL Hgb (13.0-17.5) gm/dL Hct (39.0-53.0) % Neutrophils # (1.3-7.7) k/uL Sodium (137-145) mmol/L BUN (9-20) mg/dL Glucose (74-99) mg/dL POC Glucose (mg/dL) 149 H 133 H 152 H (75-99) mg/dL Total Bilirubin (0.2-1.3) mg/dL Alkaline Phosphatase (38-126) U/L Total Protein (6.3-8.2) g/dL Albumin (3.5-5.0) g/dL 07/30/21 07/30/21 Range/Units 05:15 05:15 WBC 16.2 H (3.8-10.6) k/uL RBC 3.16 L (4.30-5.90) m/uL Hgb 9.6 L (13.0-17.5) gm/dL Hct 28.5 L (39.0-53.0) % Neutrophils # 14.0 H (1.3-7.7) k/uL Sodium 135 L (137-145) mmol/L BUN 22 H (9-20) mg/dL Glucose 142 H (74-99) mg/dL POC Glucose (mg/dL) (75-99) mg/dL Total Bilirubin 1.4 H (0.2-1.3) mg/dL Alkaline Phosphatase 34 L (38-126) U/L Total Protein 5.1 L (6.3-8.2) g/dL Albumin 2.9 L (3.5-5.0) g/dL Microbiology - Last 24 Hours (Table) 07/28/21 09:35 Urine Culture - Preliminary Urine,Catheterized Group D Enterococcus Assessment and Plan (1) Status post aorto-coronary artery bypass graft Current Visit: Yes Status: Acute Code(s): Z95.1 - PRESENCE OF AORTOCORONARY BYPASS GRAFT SNOMED Code(s): 024411559 (2) CAD (coronary artery disease) Current Visit: Yes Status: Acute Code(s): I25.10 - ATHSCL HEART DISEASE OF [place] CORONARY ARTERY W/O ANG PCTRS SNOMED Code(s): 41881837 (3) Hyperlipidemia Current Visit: Yes Status: Acute Code(s): E78.5 - HYPERLIPIDEMIA, UNSPECIFIED SNOMED Code(s): 04145335 Plan: Patient will continue current measures, increase activity and possible discharge within 24-48 hours
[2021-07-30 12:07] LABS: Glucose,Whole Blood 127 mg/dL (75-99)
[2021-07-30] MEDS: LEVOFLOXACIN 250 MG TAB PO SCH (16:07)
[2021-07-30] MEDS: amLODIPine 2.5 MG TAB PO SCH (16:07)
[2021-07-30 16:53] LABS: Glucose,Whole Blood 132 mg/dL (75-99)
[2021-07-30] MEDS: LACTATED RINGERS 1,000 ML IV SCH (17:13)
[2021-07-30] MEDS: ceFAZolin 1,000 MG in SODIUM CHLORIDE 0.9% IRRIGATIO 1,000 ML IRRIGATION ONE (17:15)
[2021-07-30 20:17] LABS: Glucose,Whole Blood 145 mg/dL (75-99)
[2021-07-30] MEDS: SENNOSIDES-DOCUSATE SODIUM 1 EACH TAB PO SCH (20:46)
[2021-07-31 01:55] LABS: Glucose,Whole Blood 152 mg/dL (75-99)
[2021-07-31 06:15] LABS: Glucose,Whole Blood 120 mg/dL (75-99)
[2021-07-31 06:21] LABS: HCT 27.9 % (39.0-53.0); HGB 9.7 gm/dL (13.0-17.5); MCH 31.6 pg (25.0-35.0); MCHC 34.8 g/dL (31.0-37.0); MCV 90.7 fL (80.0-100.0); Mean Platelet Volume 8.5; Platelet Count 201 k/uL (150-450); RBC 3.07 m/uL (4.30-5.90); WBC 16.6 k/uL (3.8-10.6)
[2021-07-31] MEDS: INSULIN ASPART (NovoLOG) 100 UNIT/ML VIAL SQ SCH ×4 (06:30→21:23)
[2021-07-31] MEDS: PANTOPRAZOLE 40 MG TABLET PO SCH (06:42)
[2021-07-31 06:55] LABS: Calcium 8.9 mg/dL (8.4-10.2); Potassium 4.2 mmol/L (3.5-5.1)
[2021-07-31] MEDS: IPRATROPIUM-ALBUTEROL 3 ML NEB INHALATION SCH ×4 (07:17→19:16)
--- NOTE | 2021-07-31 08:05 | P.PN ---
Subjective Progress Note Date: 07/31/21 Principal diagnosis: Multivessel coronary artery disease with recent STEMI and drug-eluting stent placement to the second obtuse marginal artery 05/22/2021, history of dyslipidemia, BPH status post TURP, never smoker, preoperative urine culture positive for enterococcus with history of similar in the past POD #3 coronary artery bypass grafting 4 with the left internal mammary artery to the left anterior descending artery, left radial artery to the first obtuse marginal artery, reverse saphenous vein graft to the second obtuse marginal artery, and reverse saphenous vein graft to the PDA, endoscopic vein harvest of the left greater saphenous vein, endoscopic harvest of the left radial artery, ligation of the left atrial appendage with a 35 mm AtriClip, epi-aortic ultras ound, intraoperative transesophageal echocardiogram by anesthesia, and closure of the sternum with titanium plating Postoperative acute blood loss anemia and thrombocytopenia, expected given hemodilution and cardiopulmonary bypass pump as well as preoperative use of Effient The patient was seen and examined this morning on the cardiac stepdown unit. He was sitting up in a recliner in no acute distress eating breakfast. States postsurgical pain is controlled on current medication regimen, denies shortness of breath. Remains in sinus rhythm to sinus tach with heart rate in the high 90s to low 100s, hemodynamically stable on no inotropes or pressors. left pleural chest tube remains. Patient has been ambulatory in the hallway without difficulty. WBC continues to trend up and urine culture positive for enterococcus avium, denies any urinary symptoms, started on levequin. No other concerns noted. Objective - Vital Signs Vital signs: Vital Signs Temp 98.4 F 07/31/21 04:00 Pulse 106 H 07/31/21 07:35 Resp 16 07/31/21 04:00 BP 105/58 07/31/21 04:00 Pulse Ox 95 07/31/21 07:19 Intake & Output 07/30/21 07/31/21 07/31/21 18:59 06:59 18:59 Intake Total 352 Output Total 340 950 Balance 12 -950 Weight 90.8 kg Intake: IV 112 Lactated Ringers 1,000 ml 100 @ 20 mls/hr IV .Q24H [facility] Rx#:[id number] pressure bags 12 Oral 240 Output: Chest Tube Drainage 40 50 left pleural 0 50 mediastinal 40 Urine 300 900 Other: Voiding Method Urinal Urinal ABP, PAP, CO, CI - Last Documented Arterial Blood Pressure 100/48 Pulmonary Artery Pressure 20/10 Cardiac Output 4.9 Cardiac Index 2.3 - Exam CONSTITUTIONAL: Appears comfortable, cooperative, no acute distress RESPIRATORY: Lungs sounds diminished bilaterally. Respirations even, nonlabored. Currently on room air with oxygen saturation 95%. Able to achieve 1000 mL on incentive spirometry. Strong non productive cough. CARDIOVASCULAR: S1, S2 present. Regular rate and rhythm, sinus rhythm to sinus tach with heart rate in the high 90s to low 100s. Sternum stable. Palpable peripheral pulses bilaterally. No edema present. No calf pain or tenderness noted. Heart hugger in place with patient demonstrating appropriate use. Antiembolism stockings, SCDs present. GASTROINTESTINAL: Abdomen soft, nontender, nondistended. Active bowel sounds present 4 quadrants. Tolerating diet. Positive flatus, negative bowel movement GENITOURINARY: Continues to void 400-500 at a time INTEGUMENTARY: Skin is warm and dry with evidence of good perfusion. Anterior chest incision well approximated and covered with dry intact dressing. Left lower extremity EVH site well approximated without redness or drainage. Left radial artery harvest site well approximated without redness or drainage, patient able to wiggle fingers and dictaphone typist appropriately, good cap refill, denies n umbness/tingling NEUROLOGIC: Cranial nerves II through XII intact MUSKULOSKELETAL: Able to move all extremities, strength equal bilaterally, gait normal PSYCHIATRIC: Alert and oriented to person place and time, appropriate affect, intact judgment and insight INVASIVE LINES AND TUBES: Left pleural chest tube present and connected to wall suction, no air leaks present, 50 mL serosanguineous drainage overnight, 120 mL in the last 24 hours. A/V epicardial pacemaker wires present, grounded. - Allied health notes Allied health notes reviewed: nursing - Labs CBC & Chem 7: 07/31/21 05:42 07/31/21 05:42 Labs: Abnormal Lab Results - Last 24 Hours (Table) 07/30/21 07/30/21 07/30/21 Range/Units 12:07 16:52 20:16 WBC (3.8-10.6) k/uL RBC (4.30-5.90) m/uL Hgb (13.0-17.5) gm/dL Hct (39.0-53.0) % Glucose (74-99) mg/dL POC Glucose (mg/dL) 127 H 132 H 145 H (75-99) mg/dL 07/31/21 07/31/21 07/31/21 Range/Units 01:50 05:42 05:42 WBC 16.6 H (3.8-10.6) k/uL RBC 3.07 L (4.30-5.90) m/uL Hgb 9.7 L (13.0-17.5) gm/dL Hct 27.9 L (39.0-53.0) % Glucose 128 H (74-99) mg/dL POC Glucose (mg/dL) 152 H (75-99) mg/dL 07/31/21 Range/Units 06:13 WBC (3.8-10.6) k/uL RBC (4.30-5.90) m/uL Hgb (13.0-17.5) gm/dL Hct (39.0-53.0) % Glucose (74-99) mg/dL POC Glucose (mg/dL) 120 H (75-99) mg/dL Microbiology - Last 24 Hours (Table) 07/28/21 09:35 Urine Culture - Final Urine,Catheterized Enterococcus avium - Imaging and Cardiology Chest x-ray: image reviewed Assessment and Plan Assessment: 1. Multivessel coronary artery disease with recent STEMI and drug-eluting stent placement to the second obtuse marginal artery 05/22/2021, status post four- vessel CABG 2. History of dyslipidemia, treated, cholesterol 101, LDL 43, triglycerides 74 3. BPH status post TURP 4. Never smoker, preoperative FEV1 93% of predicted 5. Preoperative urine culture positive for enterococcus with history of similar in the past, asymptomatic 6. Postoperative acute blood loss anemia and thrombocytopenia, expected 7. Vaccinated with Moderna, last dose May 2021 Plan: 1. Continue aspirin, statin, Plavix, beta james therapy. Will increase beta james therapy as tolerated, increased to 25 mg BID today 2. Continue low-dose calcium channel james for radial artery spasm prophylaxis. Do not discontinue CCB without discussed with cardiac surgery 3. Encourage incentive spirometry use 10 times every hour while awake. Bronchodilators per pulmonology 4. Increase activity, ambulate as tolerated. PT/OT/cardiac rehab consulted 5. Will monitor daily labs and x-rays. Electrolyte replacement per protocol. 6. GI/DVT prophylaxis 7. Pain control with current medication regimen 8. Insulin management per primary care service. Patient is not diabetic, preoperative hemoglobin A1c 5.7%. Needs tight blood sugar control to promote sternal union and prevent infection 9. Continue levaquin for enterococcus avium UTI 10. Will discontinue left pleural chest tube 11. Strict accurate intake and output. Daily weights 12. Discharge planning in progress, anticipate discharge to home with home care in the next 24-48 hours 13. More recommendations to follow based on patient's progress Time with Patient: Greater than 30
[2021-07-31] MEDS: CLOPIDOGREL 75 MG TAB PO SCH (08:28)
[2021-07-31] MEDS: EZETIMIBE 10 MG TAB PO SCH (08:28)
[2021-07-31] MEDS: ASPIRIN 325 MG TAB PO SCH (08:28)
[2021-07-31] MEDS: HEPARIN SODIUM,PORCINE/PF 5,000 UNIT/0.5 ML SYRINGE SQ SCH ×3 (08:28→23:35)
[2021-07-31] MEDS: ATORVASTATIN 40 MG TAB PO SCH (08:28)
[2021-07-31] MEDS: METOPROLOL TARTRATE 25 MG TAB PO SCH ×2 (08:29→21:23)
[2021-07-31] MEDS: MULTIVITAMINS, THERA 1 EACH TAB PO SCH (08:29)
--- NOTE | 2021-07-31 10:06 | P.PN ---
Subjective Progress Note Date: 07/31/21 The patient is seen today 07/30/2021 in follow-up. His postoperative day #2 of coronary artery bypass grafting 4 with a THOMAS to the LAD, left radial artery to the first obtuse marginal, reverse saphenous vein graft to the second obtuse marginal and PDA. He is doing quite well. He sitting up in a chair at the bedside. Awake and alert in no acute distress. Obtain O2 saturations in the 90s on 2 L/m per nasal cannula. He is afebrile. Hemodynamically stable. X-ray shows basilar consolidation and pleural effusions with mild venous congestion. Her culture is positive for group D enterococcus. Count 16.2. Hemoglobin 9.6. Platelets 150. Sodium 135. Potassium 4.2. Creatinine 0.97. AST 42. ALT 44. Albumin 2.9. Glucose 142. He did receive albumin yesterday. Cardiac output 4.9. Cardiac index 2.3. He remains on bronchodilators. Heparin for DVT prophylaxis. Lactated Ringer's at 50 MLS per hour. The plan is to initiate Bactrim. Mediastinal and left pleural chest tubes remain in place. Pacer wires in place and grafted. Cordis will be discontinued. Arterial line will be discontinued. He is pulling approximate 750 MLS on the incentive spirometer. We will increase his activity as tolerated. The patient is seen today 07/31/2021 in follow-up on the selective care unit. Post operative day #3. He is currently sitting up in a chair at the bedside. Awake and alert in no acute distress. He is maintaining good O2 saturations in the mid 90s on room air. He is pulling approximately 1250 MLS on the incentive spirometer. He's been up ambulating in the hallway. His ches tubes and pacer wires have been removed. He's been afebrile. Hemodynamically stable. Chest x- ray shows no significant infiltrates or edema. Ultrasound was positive for enterococcus. White count 16.6. Hemoglobin 9.7. Sodium 137. Potassium 4.2. Creatinine 1.04. He remains on Levaquin. Bronchodilators. Heparin for DVT prophylaxis. Objective - Vital Signs Vital signs: Vital Signs Temp 97.8 F 07/31/21 08:00 Pulse 107 H 07/31/21 08:00 Resp 18 07/31/21 08:00 BP 125/57 07/31/21 08:00 Pulse Ox 98 07/31/21 08:00 Intake & Output 07/30/21 07/31/21 07/31/21 18:59 06:59 18:59 Intake Total 352 Output Total 340 950 Balance 12 -950 Weight 90.8 kg Intake: IV 112 Lactated Ringers 1,000 ml 100 @ 20 mls/hr IV .Q24H [facility] Rx#:[id number] pressure bags 12 Oral 240 Output: Chest Tube Drainage 40 50 left pleural 0 50 mediastinal 40 Urine 300 900 Other: Voiding Method Urinal Urinal Urinal ABP, PAP, CO, CI - Last Documented Arterial Blood Pressure 100/48 Pulmonary Artery Pressure 20/10 Cardiac Output 4.9 Cardiac Index 2.3 - Exam The patient is a very pleasant 71-year-old gentleman, sitting up on a chair and he is calm and comfortable. He is currently on room air. Head exam was generally normal. There was no scleral icterus or corneal arcus. Mucous membranes were moist. Neck is supple and the patient has a left IJ Cordis in place Lungs sounds are equal and symmetrical diminished. Chest tubes removed. Thoracotomy dressing is dry clean and intact Cardiac exam revealed the PMI to be normally situated and sized. The rhythm was regular and no extrasystoles were noted during several minutes of auscultation. The first and second heart sounds were normal and physiologic splitting of the second heart sound was noted. There were no murmurs, rubs, clicks, or gallops. Abdominal exam revealed normal bowel sounds. The abdomen was soft, non-tender, and without masses, organomegaly, or appreciable enlargement of the abdominal aorta. Extremities revealed no significant edema cyanosis or clubbing. Surgical wound site over the left radial artery site is dry clean and intact. - Labs CBC & Chem 7: 07/31/21 05:42 07/31/21 05:42 Labs: Abnormal Lab Results - Last 24 Hours (Table) 07/30/21 07/30/21 07/30/21 Range/Units 12:07 16:52 20:16 WBC (3.8-10.6) k/uL RBC (4.30-5.90) m/uL Hgb (13.0-17.5) gm/dL Hct (39.0-53.0) % Glucose (74-99) mg/dL POC Glucose (mg/dL) 127 H 132 H 145 H (75-99) mg/dL 07/31/21 07/31/21 07/31/21 Range/Units 01:50 05:42 05:42 WBC 16.6 H (3.8-10.6) k/uL RBC 3.07 L (4.30-5.90) m/uL Hgb 9.7 L (13.0-17.5) gm/dL Hct 27.9 L (39.0-53.0) % Glucose 128 H (74-99) mg/dL POC Glucose (mg/dL) 152 H (75-99) mg/dL 07/31/21 Range/Units 06:13 WBC (3.8-10.6) k/uL RBC (4.30-5.90) m/uL Hgb (13.0-17.5) gm/dL Hct (39.0-53.0) % Glucose (74-99) mg/dL POC Glucose (mg/dL) 120 H (75-99) mg/dL Microbiology - Last 24 Hours (Table) 07/28/21 09:35 Urine Culture - Final Urine,Catheterized Enterococcus avium Assessment and Plan Assessment: 1 symptomatic multivessel coronary artery disease and the patient underwent four-vessel bypass surgery and the patient is currently paced postop day #3. The patient had THOMAS to LAD and radial arterial graft to to OM1, SVG to OM 2, SVG to PDA. The patient is hemodynamically stable on no pressors. Hemodynam ically stable. Awake and alert 2 acute hypoxic respiratory failure, post thoracotomy and bypass surgery. Extubated, no issues, on room air. 3 known history of coronary artery disease with previous STEMI with stenting of OM 2 4 hyperlipidemia 5 chronic cough 6 environmental ALLERGIES 7 BPH 8 Urinary tract infection secondary to group D Streptococcus Plan The patient was seen and evaluated by Dr. Rosenberg Chest x-ray and labs reviewed Table from the pulmonary standpoint Increase his activity as tolerated Probable home tomorrow We will continue to follow I, the cosigning physician, performed a history & physical examination of the patient. Lungs sounds clear. Maintaining good O2 saturations in the 90s on room air. I discussed the assessment and plan of care with my nurse practitioner, Renetta Lindo. I attest to the above note as dictated by her.
[2021-07-31] MEDS: amLODIPine 2.5 MG TAB PO SCH (12:07)
--- NOTE | 2021-07-31 12:30 | P.PN ---
Subjective Progress Note Date: 07/31/21 HISTORY OF PRESENT ILLNESS This is a 71-year-old gentleman who is a status post bypass surgery. Patient s eemed to be clinically stable. His hemodynamics are stable. No arrhythmias noted. Patient is sitting up in the chair and seems to be alert and oriented in no acute distress. Complains of soreness of the chest. [place]-Irma catheter then removed. His cardiac output was good. Lungs show some diminished breath sounds at bases. Heart is regular. Overall patient seemed to make good progress. Ladarius callaway current management. 07/30/2021: This patient continues to progress well. Sitting up in the chair, no acute distress. No arrhythmias. His mediastinal chest tube is going to be taken out. He still has chest tube on the left side. He will be transferred to telemetry unit and increase activity. Overall, patient's his progress fairly well. We will follow. 07/31/2021: Patient denies having any new complaints. He denies any chest pain, shortness of breath, lightheadedness or dizziness. He has found ambulating in his room and appears to be in no acute distress. WBC 16.6, hemoglobin 9.7. Creatinine 1.04. PHYSICAL EXAMINATION Gen: This is a 71-year-old male. He appears to be in no acute distress. VS: Afebrile, heart rate 102, blood pressure 125/57, pulse ox 98% on room air. HEENT: Head is atraumatic, normocephalic. Pupils equal, round. Sclerae is anicteric. NECK: Supple. No JVD. No lymphadenopathy. No thyromegaly. LUNGS: Diminished lung sounds bilateral bases. No wheezes or rhonchi. No intercostal retractions. HEART: Regular rate and rhythm. No murmur. ABDOMEN: Soft. Bowel sounds are present. No masses. No tenderness. EXTREMITIES: No pedal edema. No calf tenderness. No cyanosis, clubbing. NEUROLOGICAL: Patient is awake, alert and oriented x3. ASSESSMENT Coronary artery disease status post CABG Hyperlipidemia PLAN Continue current management, anticipate discharge home tomorrow Further recommendations to follow based upon clinical course Thank you kindly for this consultation. Nurse practitioner note has been reviewed, I agree with documented findings and plan of care. Patient was seen and examined. Objective - Vital Signs Vital signs: Vital Signs Temp 97.8 F 07/31/21 08:00 Pulse 107 H 07/31/21 08:00 Resp 18 07/31/21 08:00 BP 125/57 07/31/21 08:00 Pulse Ox 98 07/31/21 08:00 Intake & Output 07/30/21 07/31/21 07/31/21 18:59 06:59 18:59 Intake Total 352 Output Total 340 950 Balance 12 -950 Weight 90.8 kg Intake: IV 112 Lactated Ringers 1,000 ml 100 @ 20 mls/hr IV .Q24H [facility] Rx#:[id number] pressure bags 12 Oral 240 Output: Chest Tube Drainage 40 50 left pleural 0 50 mediastinal 40 Urine 300 900 Other: Voiding Method Urinal Urinal Urinal ABP, PAP, CO, CI - Last Documented Arterial Blood Pressure 100/48 Pulmonary Artery Pressure 20/10 Cardiac Output 4.9 Cardiac Index 2.3 - Labs CBC & Chem 7: 07/31/21 05:42 07/31/21 05:42 Labs: Abnormal Lab Results - Last 24 Hours (Table) 07/30/21 07/30/21 07/30/21 Range/Units 12:07 16:52 20:16 WBC (3.8-10.6) k/uL RBC (4.30-5.90) m/uL Hgb (13.0-17.5) gm/dL Hct (39.0-53.0) % Glucose (74-99) mg/dL POC Glucose (mg/dL) 127 H 132 H 145 H (75-99) mg/dL 07/31/21 07/31/21 07/31/21 Range/Units 01:50 05:42 05:42 WBC 16.6 H (3.8-10.6) k/uL RBC 3.07 L (4.30-5.90) m/uL Hgb 9.7 L (13.0-17.5) gm/dL Hct 27.9 L (39.0-53.0) % Glucose 128 H (74-99) mg/dL POC Glucose (mg/dL) 152 H (75-99) mg/dL 07/31/21 Range/Units 06:13 WBC (3.8-10.6) k/uL RBC (4.30-5.90) m/uL Hgb (13.0-17.5) gm/dL Hct (39.0-53.0) % Glucose (74-99) mg/dL POC Glucose (mg/dL) 120 H (75-99) mg/dL Microbiology - Last 24 Hours (Table) 07/28/21 09:35 Urine Culture - Final Urine,Catheterized Enterococcus avium
--- NOTE | 2021-07-31 14:14 | P.PN ---
Subjective Progress Note Date: 07/31/21 This is a 71-year-old male patient of Dr. Holland who was found to have coronary artery disease. Patient was recently evaluated for chest pain and was found to have an acute ST elevated [place] in which he underwent stenting of the OM and at that time a catheterization also showed significant left main disease with triple-vessel involvement and he was referred to undergo coronary artery bypass graft surgery. Patient underwent coronary artery bypass graft surgery with four-vessel bypass on 07/28/[address] sibley. Additional medical history includes hernia and prostate disorder. Patient is currently postop day 2 resting comfortably in the intensive care unit. Patient currently off all drips chest tubes remain in place. Patient reports some mild discomfort to surgical site with activity. Patient denies any significant chest pain or shortness breath. Patient denies nausea vomiting or diarrhea. Patient denies any urinary burning or frequency. On 07/31/2021 patient was seen and examined on the telemetry floor, he is alert and oriented 3 in no apparent distress, he was able to walk in the hallway today, there is no fever or chills no headache or dizziness no chest pain no shortness of breath he has occasional cough no nausea or vomiting no abdominal pain no diarrhea and no urinary symptoms, temperature 97.8 pulse 107 respiration 18 blood pressure 125/57 white blood count 16.6 hemoglobin 9.7 platelet count 201 glucose level 128 BUN 20 creatinine 1.04 Objective - Vital Signs Vital signs: Vital Signs Temp 97.9 F 07/31/21 12:00 Pulse 106 H 07/31/21 12:00 Resp 18 07/31/21 12:00 BP 105/58 07/31/21 12:00 Pulse Ox 95 07/31/21 12:00 Intake & Output 07/30/21 07/31/21 07/31/21 18:59 06:59 18:59 Intake Total 352 Output Total 340 950 Balance 12 -950 Weight 90.8 kg Intake: IV 112 Lactated Ringers 1,000 ml 100 @ 20 mls/hr IV .Q24H [facility] Rx#:[id number] pressure bags 12 Oral 240 Output: Chest Tube Drainage 40 50 left pleural 0 50 mediastinal 40 Urine 300 900 Other: Voiding Method Urinal Urinal Urinal ABP, PAP, CO, CI - Last Documented Arterial Blood Pressure 100/48 Pulmonary Artery Pressure 20/10 Cardiac Output 4.9 Cardiac Index 2.3 - Exam Head normocephalic Neck supple Lungs clear to auscultation bilaterally no wheezing or crackles. Chest tubes remain in place Heart regular rate and rhythm S1-S2, no rub or gallop Abdomen is soft nontender nondistended positive bowel sounds no hepatosplenomegaly Extremities no edema Neuro alert and orientated to 3 - Labs CBC & Chem 7: 07/31/21 05:42 07/31/21 05:42 Labs: Abnormal Lab Results - Last 24 Hours (Table) 07/30/21 07/30/21 07/31/21 Range/Units 16:52 20:16 01:50 WBC (3.8-10.6) k/uL RBC (4.30-5.90) m/uL Hgb (13.0-17.5) gm/dL Hct (39.0-53.0) % Glucose (74-99) mg/dL POC Glucose (mg/dL) 132 H 145 H 152 H (75-99) mg/dL 07/31/21 07/31/21 07/31/21 Range/Units 05:42 05:42 06:13 WBC 16.6 H (3.8-10.6) k/uL RBC 3.07 L (4.30-5.90) m/uL Hgb 9.7 L (13.0-17.5) gm/dL Hct 27.9 L (39.0-53.0) % Glucose 128 H (74-99) mg/dL POC Glucose (mg/dL) 120 H (75-99) mg/dL Microbiology - Last 24 Hours (Table) 07/28/21 09:35 Urine Culture - Final Urine,Catheterized Enterococcus avium Assessment and Plan Assessment: 1. Status post coronary artery bypass graft surgery with Dr. sibley four-vessel on 07/28/2021. Patient is currently postop day 2 2. Known history of coronary artery disease with previous stemi 3. History of hyperlipidemia 4. History of BPH 5. Urinary tract infection positive for group D enterococcus. Per critical care note plans to start Bactrim per cardiothoracic surgery Thank you for this consultation we'll continue to follow patient closely throughout stay
--- NOTE | 2021-07-31 15:26 | XR ---
EXAMINATION TYPE: XR chest 1V portable DATE OF EXAM: 07/31/2021 COMPARISON: 07/30/2021 INDICATION: Postcardiac surgery TECHNIQUE: Single frontal view of the chest is obtained. FINDINGS: The heart size is mildly prominent. The pulmonary vasculature is normal. Left lower lobe infiltrate is present. A small left pleural fluid collection may be present. Left-dee ed chest tube is present. Small pneumothorax remains present in the left apex. This is increased from comparison. Sternotomy wires are present from CABG. IMPRESSION: 1. Small left apical pneumothorax, increasing from comparison. 2. Left lower lobe infiltrate and small left pleural effusion. 3. Left-sided chest tube A [place] level critical message alert has been initiated for Josie Teran via the [facility] [facility] Results System on 07/31/2021 11:14 AM. This message alert has been sent to Josie Teran via the pre ferences provided by the clinician for the receipt of Radiology Critical Findings. Message ID [id number] .
[2021-07-31 17:13] LABS: Glucose,Whole Blood 130 mg/dL (75-99)
[2021-07-31] MEDS: LEVOFLOXACIN 250 MG TAB PO SCH (18:07)
[2021-07-31 20:46] LABS: Glucose,Whole Blood 124 mg/dL (75-99)
[2021-07-31] MEDS: SENNOSIDES-DOCUSATE SODIUM 1 EACH TAB PO SCH (21:23)
[2021-08-01 02:20] LABS: Glucose,Whole Blood 143 mg/dL (75-99)
[2021-08-01] MEDS: MELATONIN 5 MG TABLET PO SCH ×2 (02:22→21:15)
[2021-08-01 06:03] LABS: Glucose,Whole Blood 135 mg/dL (75-99)
[2021-08-01] MEDS: PANTOPRAZOLE 40 MG TABLET PO SCH (06:24)
[2021-08-01] MEDS: INSULIN ASPART (NovoLOG) 100 UNIT/ML VIAL SQ SCH ×4 (06:24→21:15)
[2021-08-01] MEDS: CLOPIDOGREL 75 MG TAB PO SCH (07:45)
[2021-08-01] MEDS: ATORVASTATIN 40 MG TAB PO SCH (07:45)
[2021-08-01] MEDS: ASPIRIN 325 MG TAB PO SCH (07:45)
[2021-08-01] MEDS: HEPARIN SODIUM,PORCINE/PF 5,000 UNIT/0.5 ML SYRINGE SQ SCH ×2 (07:46→17:13)
[2021-08-01] MEDS: METOPROLOL TARTRATE 25 MG TAB PO SCH ×2 (07:46→21:15)
[2021-08-01] MEDS: EZETIMIBE 10 MG TAB PO SCH (07:46)
[2021-08-01] MEDS: MULTIVITAMINS, THERA 1 EACH TAB PO SCH (07:46)
[2021-08-01] MEDS: IPRATROPIUM-ALBUTEROL 3 ML NEB INHALATION SCH ×4 (08:10→20:46)
--- NOTE | 2021-08-01 08:12 | XR ---
EXAMINATION TYPE: XR chest 2V DATE OF EXAM: 08/01/2021 COMPARISON: 07/31/2021 INDICATION: Pneumothorax, post CABG TECHNIQUE: Frontal and lateral views of the chest are obtained. FINDINGS: The heart size is mildly prominent. The pulmonary vasculature is normal. Mild left lower lobe infiltrate is present. There is a small left pleural effusion. Left-sided chest tube is been removed. The residual pneumothorax is slightly diminished from comparis on but remains present. Small amount of fluid appears to be at the right lung base.. IMPRESSION: 1. Diminished left apical pneumothorax post chest tube removal. 2. Bilateral small pleural effusions with improving left lower lobe infiltrate.
--- NOTE | 2021-08-01 08:16 | P.PN ---
Subjective Progress Note Date: 08/01/21 Principal diagnosis: Multivessel coronary artery disease with recent STEMI and drug-eluting stent placement to the second obtuse marginal artery 05/22/2021, history of dyslipidemia, BPH status post TURP, never smoker, preoperative urine culture positive for enterococcus with history of similar in the past POD #4 coronary artery bypass grafting 4 with the left internal mammary artery to the left anterior descending artery, left radial artery to the first obtuse marginal artery, reverse saphenous vein graft to the second obtuse marginal artery, and reverse saphenous vein graft to the PDA, endoscopic vein harvest of the left greater saphenous vein, endoscopic harvest of the left radial artery, ligation of the left atrial appendage with a 35 mm AtriClip, epi-aortic ultras ound, intraoperative transesophageal echocardiogram by anesthesia, and closure of the sternum with titanium plating Postoperative acute blood loss anemia and thrombocytopenia, expected given hemodilution and cardiopulmonary bypass pump as well as preoperative use of Effient The patient was seen and examined this morning on the cardiac stepdown unit. He was sitting up in a recliner in no acute distress. States postsurgical pain is controlled on current medication regimen, denies shortness of breath. Remains in sinus rhythm to sinus tach with heart rate in the high 90s to low 100s despite increase in lopressor yesterday, hemodynamically stable on no inotropes or pressors. Patient has been ambulatory in the hallway without difficulty. No other concerns noted. States he feels ready to go home Objective - Vital Signs Vital signs: Vital Signs Temp 98.5 F 08/01/21 04:00 Pulse 101 H 08/01/21 04:00 Resp 18 08/01/21 04:00 BP 115/65 08/01/21 04:00 Pulse Ox 100 08/01/21 04:00 Intake & Output 07/31/21 08/01/21 08/01/21 18:59 06:59 18:59 Output Total 300 1350 Balance -300 -1350 Weight 90.3 kg Output: Urine 300 1350 Other: Voiding Method Urinal # Voids 1 1 # Bowel Movements 1 ABP, PAP, CO, CI - Last Documented Arterial Blood Pressure 100/48 Pulmonary Artery Pressure 20/10 Cardiac Output 4.9 Cardiac Index 2.3 - Exam CONSTITUTIONAL: Appears comfortable, cooperative, no acute distress RESPIRATORY: Lungs sounds diminished bilaterally. Respirations even, nonlabored. Currently on room air with oxygen saturation 100%. Able to achieve 1250 mL on incentive spirometry. Strong non productive cough. CARDIOVASCULAR: S1, S2 present. Regular rate and rhythm, sinus rhythm to sinus tach with heart rate in the high 90s to low 100s. Sternum stable. Palpable peripheral pulses bilaterally. No edema present. No calf pain or tenderness noted. Heart hugger in place with patient demonstrating appropriate use. Antiembolism stockings, SCDs present. GASTROINTESTINAL: Abdomen soft, nontender, nondistended. Active bowel sounds present 4 quadrants. Tolerating diet. Positive bowel movement GENITOURINARY: Continues to void 300-350 at a time, 1650 mL in the last 24 hour s INTEGUMENTARY: Skin is warm and dry with evidence of good perfusion. Anterior chest incision well approximated and covered with dry intact dressing. Left lower extremity EVH site well approximated without redness or drainage. 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 - Allied health notes Allied health notes reviewed: nursing - Labs CBC & Chem 7: 07/31/21 05:42 07/31/21 05:42 Labs: Abnormal Lab Results - Last 24 Hours (Table) 07/31/21 07/31/21 08/01/21 Range/Units 17:11 20:44 02:18 POC Glucose (mg/dL) 130 H 124 H 143 H (75-99) mg/dL 08/01/21 Range/Units 05:53 POC Glucose (mg/dL) 135 H (75-99) mg/dL - Imaging and Cardiology Chest x-ray: image reviewed Assessment and Plan Assessment: 1. Multivessel coronary artery disease with recent STEMI and drug-eluting stent placement to the second obtuse marginal artery 05/22/2021, status post four- vessel CABG 2. History of dyslipidemia, treated, cholesterol 101, LDL 43, triglycerides 74 3. BPH status post TURP 4. Never smoker, preoperative FEV1 93% of predicted 5. Preoperative urine culture positive for enterococcus with history of similar in the past, asymptomatic 6. Postoperative acute blood loss anemia and thrombocytopenia, expected 7. Vaccinated with Moderna, last dose May 2021 Plan: 1. Continue aspirin, statin, Plavix, beta james therapy. Will increase beta james therapy as tolerated 2. Continue low-dose calcium channel james for radial artery spasm prophylaxis. Will change to cardizem for better heart rate control. Do not discontinue CCB without discussed with cardiac surgery 3. Encourage incentive spirometry use 10 times every hour while awake. Bronchodilators per pulmonology 4. Increase activity, ambulate as tolerated. PT/OT/cardiac rehab consulted 5. Will monitor daily labs and x-rays. Electrolyte replacement per protocol. 6. GI/DVT prophylaxis 7. Pain control with current medication regimen 8. Insulin management per primary care service. Patient is not diabetic, preoperative hemoglobin A1c 5.7%. Needs tight blood sugar control to promote sternal union and prevent infection 9. Continue levaquin for enterococcus avium UTI 10. Strict accurate intake and output. Daily weights 11. Discharge planning in progress, anticipate discharge to home with home care in the next 24 hours 12. More recommendations to follow based on patient's progress Time with Patient: Greater than 30
--- NOTE | 2021-08-01 09:15 | P.PN ---
Subjective Progress Note Date: 08/01/21 On today's evaluation 08/01/2021 the patient is doing well. The patient is postop day #4. He underwent four-vessel bypass surgery. He is on room air oxygen. He has no specific complaints. He is sitting up on a recliner. No respiratory distress. Pulse ox is above 90% on room air oxygen. He is in a normal sinus rhythm. He feels well. He is being considered for discharge today. He is using incentive spirometer. He is voiding adequately for now. His white cell count is 16.6 with a hemoglobin of 9.7. Normal renal function. Objective - Vital Signs Vital signs: Vital Signs Temp 96.7 F L 08/01/21 07:48 Pulse 100 08/01/21 08:20 Resp 18 08/01/21 07:48 BP 118/64 08/01/21 07:48 Pulse Ox 97 08/01/21 07:48 Intake & Output 07/31/21 08/01/21 08/01/21 18:59 06:59 18:59 Intake Total 118 Output Total 300 1350 Balance -300 -1350 118 Weight 90.3 kg Intake: Oral 118 Output: Urine 300 1350 Other: Voiding Method Urinal # Voids 1 1 # Bowel Movements 1 ABP, PAP, CO, CI - Last Documented Arterial Blood Pressure 100/48 Pulmonary Artery Pressure 20/10 Cardiac Output 4.9 Cardiac Index 2.3 - Exam CONSTITUTIONAL: Appears comfortable, cooperative, no acute distress RESPIRATORY: Lungs sounds diminished bilaterally. Respirations even, nonlabored. Currently on room air with oxygen saturation 100%. Able to achieve 1250 mL on incentive spirometry. Strong non productive cough. CARDIOVASCULAR: S1, S2 present. Regular rate and rhythm, sinus rhythm to sinus tach with heart rate in the high 90s to low 100s. Sternum stable. Palpable peripheral pulses bilaterally. No edema present. No calf pain or tenderness noted. Heart hugger in place with patient demonstrating appropriate use. Antiembolism stockings, SCDs present. GASTROINTESTINAL: Abdomen soft, nontender, nondistended. Active bowel sounds present 4 quadrants. Tolerating diet. Positive bowel movement GENITOURINARY: Continues to void 300-350 at a time, 1650 mL in the last 24 hours INTEGUMENTARY: Skin is warm and dry with evidence of good perfusion. Anterior chest incision well approximated and covered with dry intact dressing. Left lower extremity EVH site well approximated without redness or drainage. 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 - Labs CBC & Chem 7: 07/31/21 05:42 07/31/21 05:42 Labs: Abnormal Lab Results - Last 24 Hours (Table) 07/31/21 07/31/21 08/01/21 Range/Units 17:11 20:44 02:18 POC Glucose (mg/dL) 130 H 124 H 143 H (75-99) mg/dL 08/01/21 Range/Units 05:53 POC Glucose (mg/dL) 135 H (75-99) mg/dL Assessment and Plan Plan: 1. Multivessel coronary artery disease with recent STEMI and drug-eluting stent placement to the second obtuse marginal artery 05/22/2021, status post four- vessel CABG , the patient is postop day #4 2 post thoracotomy and the patient has a tiny left apical pneumothorax, stable on room air oxygen 3 History of dyslipidemia, treated, cholesterol 101, LDL 43, triglycerides 74 4 BPH status post TURP 5 Never smoker, preoperative FEV1 93% of predicted 6 Preoperative urine culture positive for enterococcus with history of similar in the past, asymptomatic 7. Postoperative acute blood loss anemia and thrombocytopenia, expected Plan: pulmonary status is stable. overall cardiovascular status is stable. No respiratory difficulties. The patient's chest x-ray was reviewed, questionable left apical pneumothorax. Using incentive spirometer. Being treated for enterococcal UTI. Discharge per cardiothoracic team.
[2021-08-01] MEDS: DILTIAZEM ORAL 30 MG TAB PO SCH ×4 (09:17→21:15)
--- NOTE | 2021-08-01 09:54 | P.PN ---
Subjective Progress Note Date: 08/01/21 This is a 71-year-old male patient of Dr. Holland who was found to have coronary artery disease. Patient was recently evaluated for chest pain and was found to have an acute ST elevated [place] in which he underwent stenting of the OM and at that time a catheterization also showed significant left main disease with triple-vessel involvement and he was referred to undergo coronary artery bypass graft surgery. Patient underwent coronary artery bypass graft surgery with four-vessel bypass on 07/28/[address] sibley. Additional medical history includes hernia and prostate disorder. Patient is currently postop day 2 resting comfortably in the intensive care unit. Patient currently off all drips chest tubes remain in place. Patient reports some mild discomfort to surgical site with activity. Patient denies any significant chest pain or shortness breath. Patient denies nausea vomiting or diarrhea. Patient denies any urinary burning or frequency. On 07/31/2021 patient was seen and examined on the telemetry floor, he is alert and oriented 3 in no apparent distress, he was able to walk in the hallway today, there is no fever or chills no headache or dizziness no chest pain no shortness of breath he has occasional cough no nausea or vomiting no abdominal pain no diarrhea and no urinary symptoms, temperature 97.8 pulse 107 respiration 18 blood pressure 125/57 white blood count 16.6 hemoglobin 9.7 platelet count 201 glucose level 128 BUN 20 creatinine 1.04 08/01/2021 patient's alert and oriented 3. Medications adjusted per cardio thoracic. Cardizem added. Per cardiothoracic will monitor patient for 24 hours of hospital DC'd home tomorrow. Chest tubes have been removed. Patient denies any chest pain. Patient denies shortness breath. Patient denies nausea vomiting or diarrhea. Objective - Vital Signs Vital signs: Vital Signs Temp 96.7 F L 08/01/21 07:48 Pulse 100 08/01/21 08:20 Resp 18 08/01/21 07:48 BP 118/64 08/01/21 07:48 Pulse Ox 97 08/01/21 07:48 Intake & Output 07/31/21 08/01/21 08/01/21 18:59 06:59 18:59 Intake Total 118 Output Total 300 1350 Balance -300 -1350 118 Weight 90.3 kg Intake: Oral 118 Output: Urine 300 1350 Other: Voiding Method Urinal # Voids 1 1 # Bowel Movements 1 ABP, PAP, CO, CI - Last Documented Arterial Blood Pressure 100/48 Pulmonary Artery Pressure 20/10 Cardiac Output 4.9 Cardiac Index 2.3 - Exam Head normocephalic Neck supple Lungs clear to auscultation bilaterally no wheezing or crackles. Chest tubes remain in place Heart regular rate and rhythm S1-S2, no rub or gallop Abdomen is soft nontender nondistended positive bowel sounds no hepatosplenomegaly Extremities no edema Neuro alert and orientated to 3 - Labs CBC & Chem 7: 07/31/21 05:42 07/31/21 05:42 Labs: Abnormal Lab Results - Last 24 Hours (Table) 07/31/21 07/31/21 08/01/21 Range/Units 17:11 20:44 02:18 POC Glucose (mg/dL) 130 H 124 H 143 H (75-99) mg/dL 08/01/21 Range/Units 05:53 POC Glucose (mg/dL) 135 H (75-99) mg/dL Assessment and Plan Assessment: 1. Status post coronary artery bypass graft surgery with Dr. sibley four-vessel on 07/28/2021. Patient is currently postop day 4 2. Known history of coronary artery disease with previous stemi 3. History of hyperlipidemia 4. History of BPH 5. Urinary tract infection positive for group D enterococcus. Per critical care note plans to start Bactrim per cardiothoracic surgery Thank you for this consultation we'll continue to follow patient closely throughout stay
[2021-08-01 12:03] LABS: HCT 28.2 % (39.0-53.0); HGB 9.8 gm/dL (13.0-17.5); MCH 31.3 pg (25.0-35.0); MCHC 34.7 g/dL (31.0-37.0); MCV 90.2 fL (80.0-100.0); Mean Platelet Volume 7.9; Platelet Count 327 k/uL (150-450); RBC 3.13 m/uL (4.30-5.90); WBC 13.9 k/uL (3.8-10.6)
[2021-08-01 12:13] LABS: Glucose,Whole Blood 129 mg/dL (75-99)
[2021-08-01 12:32] LABS: Potassium 4.2 mmol/L (3.5-5.1)
--- NOTE | 2021-08-01 12:37 | P.PN ---
Subjective Progress Note Date: 08/01/21 HISTORY OF PRESENT ILLNESS This is a 71-year-old gentleman who is a status post bypass surgery. Patient s eemed to be clinically stable. His hemodynamics are stable. No arrhythmias noted. Patient is sitting up in the chair and seems to be alert and oriented in no acute distress. Complains of soreness of the chest. [place] catheter then removed. His cardiac output was good. Lungs show some diminished breath sounds at bases. Heart is regular. Overall patient seemed to make good progress. Ladarius callaway current management. 07/30/2021: This patient continues to progress well. Sitting up in the chair, no acute distress. No arrhythmias. His mediastinal chest tube is going to be taken out. He still has chest tube on the left side. He will be transferred to telemetry unit and increase activity. Overall, patient's his progress fairly well. We will follow. 07/31/2021: Patient denies having any new complaints. He denies any chest pain, shortness of breath, lightheadedness or dizziness. He has found ambulating in his room and appears to be in no acute distress. WBC 16.6, hemoglobin 9.7. Creatinine 1.04. 08/01/2021: Cardiothoracic team and started the patient on Cardizem 30 mg 4 t imes daily. Patient is been in a sinus rhythm in the low 100s. Pacemaker wires remain in place. PHYSICAL EXAMINATION Gen: This is a 71-year-old male. He appears to be in no acute distres s. VS: Afebrile, heart rate 108, blood pressure 135/97, pulse ox 90% on room air. HEENT: Head is atraumatic, normocephalic. Pupils equal, round. Sclerae is anicteric. NECK: Supple. No JVD. No lymphadenopathy. No thyromegaly. LUNGS: Diminished lung sounds bilateral bases. No wheezes or rhonchi. No intercostal retractions. HEART: Regular rate and rhythm. No murmur. ABDOMEN: Soft. Bowel sounds are present. No masses. No tenderness. EXTREMITIES: No pedal edema. No calf tenderness. No cyanosis, clubbing. NEUROLOGICAL: Patient is awake, alert and oriented x3. ASSESSMENT Coronary artery disease status post CABG Hyperlipidemia PLAN Continue current management, anticipate discharge home tomorrow Further recommendations to follow based upon clinical course Thank you kindly for this consultation. Nurse practitioner note has been reviewed, I agree with documented findings and plan of care. Patient was seen and examined. Objective - Vital Signs Vital signs: Vital Signs Temp 96.7 F L 08/01/21 07:48 Pulse 98 08/01/21 11:58 Resp 18 08/01/21 08:00 BP 118/64 08/01/21 07:48 Pulse Ox 97 08/01/21 07:48 Intake & Output 07/31/21 08/01/21 08/01/21 18:59 06:59 18:59 Intake Total 128 Output Total 300 1350 Balance -300 -1350 128 Weight 90.3 kg Intake: IV 10 Invasive Line 2 10 Oral 118 Output: Urine 300 1350 Other: Voiding Method Urinal Urinal # Voids 1 1 # Bowel Movements 1 ABP, PAP, CO, CI - Last Documented Arterial Blood Pressure 100/48 Pulmonary Artery Pressure 20/10 Cardiac Output 4.9 Cardiac Index 2.3 - Labs CBC & Chem 7: 08/01/21 11:34 07/31/21 05:42 Labs: Abnormal Lab Results - Last 24 Hours (Table) 07/31/21 07/31/21 08/01/21 Range/Units 17:11 20:44 02:18 POC Glucose (mg/dL) 130 H 124 H 143 H (75-99) mg/dL 08/01/21 Range/Units 05:53 POC Glucose (mg/dL) 135 H (75-99) mg/dL
[2021-08-01] MEDS: LEVOFLOXACIN 250 MG TAB PO SCH (17:13)
[2021-08-01 17:15] LABS: Glucose,Whole Blood 147 mg/dL (75-99)
[2021-08-01 20:54] LABS: Glucose,Whole Blood 135 mg/dL (75-99)
[2021-08-01] MEDS: SENNOSIDES-DOCUSATE SODIUM 1 EACH TAB PO SCH (21:15)
[2021-08-02] MEDS: HEPARIN SODIUM,PORCINE/PF 5,000 UNIT/0.5 ML SYRINGE SQ SCH ×2 (01:00→09:13)
[2021-08-02 02:31] LABS: Glucose,Whole Blood 135 mg/dL (75-99)
[2021-08-02 06:32] LABS: Glucose,Whole Blood 115 mg/dL (75-99)
[2021-08-02] MEDS: INSULIN ASPART (NovoLOG) 100 UNIT/ML VIAL SQ SCH ×2 (06:46→12:09)
[2021-08-02] MEDS ORDERED: SENNOSIDES-DOCUSATE SODIUM 1 EACH TAB PO PRN (06:57)
[2021-08-02] MEDS: PANTOPRAZOLE 40 MG TABLET PO SCH (07:13)
[2021-08-02] MEDS: IPRATROPIUM-ALBUTEROL 3 ML NEB INHALATION SCH ×2 (07:43→11:21)
[2021-08-02 08:18] LABS: HCT 28.3 % (39.0-53.0); HGB 9.4 gm/dL (13.0-17.5); MCH 30.8 pg (25.0-35.0); MCHC 33.2 g/dL (31.0-37.0); MCV 92.8 fL (80.0-100.0); Mean Platelet Volume 7.7; Platelet Count 354 k/uL (150-450); RBC 3.05 m/uL (4.30-5.90); RDW 13.5 % (11.5-15.5); WBC 10.7 k/uL (3.8-10.6)
[2021-08-02 08:33] LABS: Potassium 4.1 mmol/L (3.5-5.1)
--- NOTE | 2021-08-02 08:34 | P.PN ---
Subjective Progress Note Date: 08/02/21 Principal diagnosis: Multivessel coronary artery disease with recent STEMI and drug-eluting stent placement to the second obtuse marginal artery 05/22/2021, history of dyslipidemia, BPH status post TURP, never smoker, preoperative urine culture positive for enterococcus with history of similar in the past POD #5 coronary artery bypass grafting 4 with the left internal mammary artery to the left anterior descending artery, left radial artery to the first obtuse marginal artery, reverse saphenous vein graft to the second obtuse marginal artery, and reverse saphenous vein graft to the PDA, endoscopic vein harvest of the left greater saphenous vein, endoscopic harvest of the left radial artery, ligation of the left atrial appendage with a 35 mm AtriClip, epi-aortic ultras ound, intraoperative transesophageal echocardiogram by anesthesia, and closure of the sternum with titanium plating Postoperative acute blood loss anemia and thrombocytopenia, expected given hemodilution and cardiopulmonary bypass pump as well as preoperative use of Effient The patient was seen and examined this morning on the cardiac stepdown unit. He was sitting up in a recliner in no acute distress. States postsurgical pain is controlled on current medication regimen, denies shortness of breath. Remains in sinus rhythm with heart rate in the 80s, hemodynamically stable. Patient has been ambulatory in the hallway without difficulty, had first shower yesterday. No other concerns noted. States he feels ready to go home Objective - Vital Signs Vital signs: Vital Signs Temp 97.8 F 08/02/21 05:08 Pulse 95 08/02/21 07:54 Resp 15 08/02/21 05:08 BP 112/60 08/02/21 05:08 Pulse Ox 94 L 08/02/21 05:08 Intake & Output 08/01/21 08/02/21 08/02/21 18:59 06:59 18:59 Intake Total 128 Balance 128 Weight 89.811 kg Intake: IV 10 Invasive Line 2 10 Oral 118 Other: Voiding Method Urinal Urinal # Voids 1 1 # Bowel Movements 1 ABP, PAP, CO, CI - Last Documented Arterial Blood Pressure 100/48 Pulmonary Artery Pressure 20/10 Cardiac Output 4.9 Cardiac Index 2.3 - Exam CONSTITUTIONAL: Appears comfortable, cooperative, no acute distress RESPIRATORY: Lungs sounds diminished bilaterally. Respirations even, nonlabored. Currently on room air with oxygen saturation in the 90s. Able to achieve 1500 mL on incentive spirometry. Strong non productive cough. CARDIOVASCULAR: S1, S2 present. Regular rate and rhythm, sinus rhythm on telemetry. Sternum stable. Palpable peripheral pulses bilaterally. No edema present. No calf pain or tenderness noted. Heart hugger in place with patient demonstrating appropriate use. Antiembolism stockings, SCDs present. GASTROINTESTINAL: Abdomen soft, nontender, nondistended. Active bowel sounds present 4 quadrants. Tolerating diet. Positive bowel movement GENITOURINARY: Continues to void INTEGUMENTARY: Skin is warm and dry with evidence of good perfusion. Anterior chest incision well approximated and covered with dry intact dressing. Left lower extremity EVH site well approximated without redness or drainage. 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 - Allied health notes Allied health notes reviewed: nursing - Labs CBC & Chem 7: 08/02/21 07:38 08/01/21 11:34 Labs: Abnormal Lab Results - Last 24 Hours (Table) 08/01/21 08/01/21 08/01/21 Range/Units 11:34 11:34 11:47 WBC 13.9 H (3.8-10.6) k/uL RBC 3.13 L (4.30-5.90) m/uL Hgb 9.8 L (13.0-17.5) gm/dL Hct 28.2 L (39.0-53.0) % Sodium 136 L (137-145) mmol/L BUN 21 H (9-20) mg/dL Glucose 122 H (74-99) mg/dL POC Glucose (mg/dL) 129 H (75-99) mg/dL 08/01/21 08/01/21 08/02/21 Range/Units 16:43 20:52 02:29 WBC (3.8-10.6) k/uL RBC (4.30-5.90) m/uL Hgb (13.0-17.5) gm/dL Hct (39.0-53.0) % Sodium (137-145) mmol/L BUN (9-20) mg/dL Glucose (74-99) mg/dL POC Glucose (mg/dL) 147 H 135 H 135 H (75-99) mg/dL 08/02/21 08/02/21 Range/Units 06:30 07:38 WBC 10.7 H (3.8-10.6) k/uL RBC 3.05 L (4.30-5.90) m/uL Hgb 9.4 L (13.0-17.5) gm/dL Hct 28.3 L (39.0-53.0) % Sodium (137-145) mmol/L BUN (9-20) mg/dL Glucose (74-99) mg/dL POC Glucose (mg/dL) 115 H (75-99) mg/dL - Imaging and Cardiology Chest x-ray: image reviewed Assessment and Plan Assessment: 1. Multivessel coronary artery disease with recent STEMI and drug-eluting stent placement to the second obtuse marginal artery 05/22/2021, status post four-vessel CABG 2. History of dyslipidemia, treated, cholesterol 101, LDL 43, triglycerides 74 3. BPH status post TURP 4. Never smoker, preoperative FEV1 93% of predicted 5. Preoperative urine culture positive for enterococcus with history of similar in the past, asymptomatic 6. Postoperative acute blood loss anemia and thrombocytopenia, expected 7. Vaccinated with Moderna, last dose May 2021 Plan: 1. Continue aspirin, statin, Plavix, beta james therapy. 2. Continue low-dose calcium channel james for radial artery spasm prophylaxis. Do not discontinue CCB without discussed with cardiac surgery 3. Encourage incentive spirometry use 10 times every hour while awake. Bronchodilators per pulmonology. US of chest ordered for possible thoracentesis left chest 4. Increase activity, ambulate as tolerated. PT/OT/cardiac rehab consulted 5. Will monitor daily labs and x-rays. Electrolyte replacement per protocol. 6. GI/DVT prophylaxis 7. Pain control with current medication regimen 8. Insulin management per primary care service. Patient is not diabetic, preoperative hemoglobin A1c 5.7%. Needs tight blood sugar control to promote sternal union and prevent infection 9. Continue levaquin for enterococcus avium UTI 10. Strict accurate intake and output. Daily weights 11. Discharge planning in progress, anticipate discharge to home with home care today 12. More recommendations to follow based on patient's progress Time with Patient: Greater than 30
[2021-08-02] MEDS ORDERED: DILTIAZEM CD 120 MG CAP.ER.24H PO SCH (09:00)
[2021-08-02] MEDS: CLOPIDOGREL 75 MG TAB PO SCH (09:13)
[2021-08-02] MEDS: ATORVASTATIN 40 MG TAB PO SCH (09:13)
[2021-08-02] MEDS: ASPIRIN 325 MG TAB PO SCH (09:13)
[2021-08-02] MEDS: MULTIVITAMINS, THERA 1 EACH TAB PO SCH (09:14)
[2021-08-02] MEDS: METOPROLOL TARTRATE 25 MG TAB PO SCH (09:14)
[2021-08-02] MEDS: EZETIMIBE 10 MG TAB PO SCH (09:15)
--- NOTE | 2021-08-02 09:25 | XR ---
EXAMINATION TYPE: XR chest 2V DATE OF EXAM: 08/02/2021 COMPARISON: 08/01/2021 TECHNIQUE: PA and lateral views submitted. HISTORY: Post cardiac surgery FINDINGS: Postoperative change with cardiomegaly and bilateral infiltrate and small effusion greater on the lef t. No pneumothorax. No overt failure. Hypertrophic change of the spine. Suggestion of epicardial lead . IMPRESSION: 1. Bilateral lower lobe infiltrate and small effusion.
[2021-08-02 09:30] VITALS: RESP 18
[2021-08-02 11:28] VITALS: BP 110/60; TEMP 98.2
[2021-08-02 11:33] VITALS: PULSE 94
[2021-08-02 11:40] LABS: Glucose,Whole Blood 109 mg/dL (75-99)
--- NOTE | 2021-08-02 11:59 | CDI ---
Documentation Clarification Form Date: 08/02/2021 11:13:22 AM From: Clare Drake RN, CCDS Admit Date: 07/28/2021 05:36:00 AM Patient Name: Matheus Conley Visit Number: [id number] Discharge Date: ATTENTION: The Clinical Documentation Specialists (CDI) and [facility] Coding Staff appreciate your assistance in clarifying documentation. Please respond to the clarification below the line at the bottom and electronically sign. The CDI & [facility] Coding staff will review the response and follow-up if needed. Please note: Queries are made part of the Legal Health Record. If you have any questions, please contact the author of this message via ITS. Dr. Viktoria Rosenberg Acute hypoxic respiratory post thoracotomy and bypass surgery in consult 07/28/21, and subsequent documentation. and patient had CABG X4 on 07/28/21. Additional clarification is requested regarding the relationship, if any, that exists between the diagnosis and the procedure. Patients Admitting Diagnosis: Coronary artery disease Post-Operative Diagnosis: Same Procedure performed: Coronary artery bypass grafting x4 History/Risk Factors: STEMI, Dyslipidemia, Chronic cough Clinical Indicators: 71-year-old male present on 07/28 for elective CABG. Patient was on mechanical ventilation post procedure, 07/28 Chest x-ray showed adequate lung expansion of both lungs. No evidence of any pneumothorax. He is on no pressors. 07/28 Labs: WBC 11.8 HGB 10.1, HCT 29.9 PLT 124, 07/28 Pulmonary Consult Acute hypoxic respiratory failure post thoracotomy and bypass surgery. Anticipate extubation within 6 hour window. 07/29 Vent tines noted as: Mechanical ventilation 07/28 14:00, 07/29 Extubated 19:58 Treatment: ICU Monitoring Mechanical ventilation per pulmonary Monitor output from the chest tubes, What relationship, if any, exists between the diagnosis of acute hypoxic respiratory failure and the procedure? [ ] Acute hypoxic respiratory failure is a complication of surgical procedure [ ] Acute hypoxic respiratory failure has been ruled out, Routine post op mechanical ventilation monitoring [ ] Acute hypoxic respiratory failure is an expected outcome of the surgical procedure [x ] Acute hypoxic respiratory failure is related to patients co-morbid condition(s) of [insert co-morbid dxs] & not a complication of the procedure [ ] Other please specify ____ [ ] Unable to determine (Template Last Revised: November 2020) MTDD
[2021-08-02] MEDS ORDERED: BENZOCAINE/MENTHOL LOZENG 1 EACH LOZENGE MUCOUS MEM ONE (12:04)
--- NOTE | 2021-08-02 13:43 | P.DS ---
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 Multivessel coronary artery disease with recent STEMI and drug-eluting stent placement to the second OM 05/22/2021 2. Dyslipidemia, treated, cholesterol 101, LDL 43, triglycerides 74 3. BPH status post TURP 4. Never smoker, preoperative FEV1 93% of predicted 5. Preoperative urine culture positive for enterococcus with history of similar in the past, asymptomatic 6. Postoperative acute blood loss anemia and thrombocytopenia, expected 7. Postoperative small left pneumothorax, resolved, inconsequential PRINCIPAL PROCEDURE: 1. Coronary artery bypass grafting 4 with the left internal mammary artery to the left anterior descending artery, left radial artery to the first obtuse marginal artery, reverse saphenous vein graft to the second obtuse marginal artery, and reverse saphenous vein graft to the PDA 2. Endoscopic vein harvest of the left greater saphenous vein 3. Endoscopic harvest of the left radial artery 4. Ligation of the left atrial appendage with a 35 mm AtriClip 5. Epi-aortic ultrasound and intraoperative transesophageal echocardiogram 6. Closure of sternum with titanium plating HISTORY OF PRESENT ILLNESS: This is a 71-year-old gentleman who follows on an outpatient basis with Dr Holland for primary care. Back in May he was visiting his girlfriend in the [place] area when he developed severe chest pain with radiation to his arm along with diaphoresis. He presente d to an urgent care clinic and was subsequently sent to [facility], was diagnosed with acute STEMI and underwent drug-eluting stent placement to the second by Dr. Regalado. During the catheterization he was found to have triple-vessel coronary artery disease. Dr. Gramajo from cardiothoracic surgery was consulted for future surgical revascularization recommendations. After recovery he was discharged home on Effient and allowed to recover for 6 weeks prior to planning for coronary bypass surgery. During that time he established cardiac care with Dr. Veronica. Upon follow-up with Dr. Gramajo and after sufficient recovery from myocardial infarction along with adequate timing of antiplatelet therapy he was recommended to undergo elective coronary artery bypass surgery. The usual perioperative course was discussed in detail with the patient, all risks and benefits were explained, all questions were answered, and consent was obtained to proceed with surgery. The patient was scheduled in the earliest possible date after sufficient time for Effient metabolism with bridging with Lovenox. HOSPITAL COURSE: The patient was brought to the hospital on 07/28/2021, taken to the preoperative area, prepared in the usual fashion, and subsequently taken to the operating room where Dr. Gramajo performed four-vessel CABG. Upon completion of surgery the patient was transferred to the cardiovascular intensive care unit where he was recovered and monitored hemodynamically. He was extubated, all lines, tubes, and drips were discontinued when appropriate, and he was transferred to 3 S cardiac stepdown unit for further monitoring and rehabilitation. His oxygen was titrated down, he continued to work with physical and occupational therapy, he was tolerating oral diet, his pain was co ntrolled, and he was ready to be discharged to home with [facility] care on postoperative day #5. He received written and verbal instruction regarding his medications, activity restrictions, signs and symptoms requiring physician notification, and follow-up appointments. Patient Condition at Discharge: Stable Plan - Discharge Summary Discharge Rx Participant: No New Discharge Prescriptions: New Diltiazem Cd [Cardizem CD] 120 mg PO DAILY #30 capsule Furosemide [Lasix] 20 mg PO DAILY #3 tab Metoprolol Tartrate [Lopressor] 25 mg PO BID #60 tab Melatonin 10 mg PO HS PRN tablet PRN Reason: Insomnia Clopidogrel [Plavix] 75 mg PO DAILY #30 tab Aspirin 325 mg PO DAILY #30 tab Levofloxacin [Levaquin] 250 mg PO DAILY@1500 #5 tab Pantoprazole [Protonix] 40 mg PO AC-BRKFST #30 tab Sennosides-Docusate Sodium [Senokot-S] 2 each PO HS PRN tab PRN Reason: Constipation Acetaminophen Tab [Tylenol] 650 mg PO Q4HR PRN tab PRN Reason: Fever And/ Or Pain Continue Multivitamins, Thera [Multivitamin (formulary)] 1 tab PO DAILY Ezetimibe [Zetia] 10 mg PO DAILY Atorvastatin [Lipitor] 40 mg PO DAILY Discontinued Irbesartan 75 mg PO DAILY Prasugrel [Effient] 10 mg PO DAILY Enoxaparin [Lovenox] 40 mg SQ Q12H #10 each Metoprolol Tartrate [Lopressor] 12.5 mg PO DAILY Aspirin 81 mg PO BID Discharge Medication List Multivitamins, Thera [Multivitamin (formulary)] 1 tab PO DAILY 04/05/19 [History] Atorvastatin [Lipitor] 40 mg PO DAILY 07/20/21 [History] Ezetimibe [Zetia] 10 mg PO DAILY 07/20/21 [History] Acetaminophen Tab [Tylenol] 650 mg PO Q4HR PRN tab 08/02/21 [Rx] Aspirin 325 mg PO DAILY #30 tab 08/02/21 [Rx] Clopidogrel [Plavix] 75 mg PO DAILY #30 tab 08/02/21 [Rx] Diltiazem Cd [Cardizem CD] 120 mg PO DAILY #30 capsule 08/02/21 [Rx] Furosemide [Lasix] 20 mg PO DAILY #3 tab 08/02/21 [Rx] Levofloxacin [Levaquin] 250 mg PO DAILY@1500 #5 tab 08/02/21 [Rx] Melatonin 10 mg PO HS PRN tablet 08/02/21 [Rx] Metoprolol Tartrate [Lopressor] 25 mg PO BID #60 tab 08/02/21 [Rx] Pantoprazole [Protonix] 40 mg PO AC-BRKFST #30 tab 08/02/21 [Rx] Sennosides-Docusate Sodium [Senokot-S] 2 each PO HS PRN tab 08/02/21 [Rx] Follow up Appointment(s)/Referral(s): Sourav Veronica MD [STAFF PHYSICIAN] - 08/18/21 9:15 am Rehab Malena LIMA,Cardiac [NON-STAFF] - 4 Weeks Giovanna Holland MD [STAFF PHYSICIAN] - 08/17/21 11:15 am Renetta Lindo NPC [Nurse Practitioner] - 08/18/21 2:15 pm Brain Rucker NPC [Nurse Practitioner] - 08/06/21 12:00 pm (You will be seen in the surgeons office behind the hospital, [facility], [address]) Malena Lilliebola, [NON-STAFF] - 1-2 Days Beny Gramajo MD [STAFF PHYSICIAN] - 08/24/21 10:15 am Ambulatory/Diagnostic Orders: Complete Blood Count w/diff [LAB.AMB] Time Frame: 3 Days, Location: None Selected Comprehensive Metabolic Panel [LAB.AMB] Time Frame: 3 Days, Location: None Selected Activity/Diet/Wound Care/Special Instructions: DISCHARGE INSTRUCTIONS: 1. No driving for 4 weeks, or until physician gives their ok. 2. The patient should sleep in their own bed, no medical bed needed. 3. Stairs are not an issue. If the bedroom is upstairs, it is advised that the patient go up at night and down in the morning for the first week. Go slowly, using handrail and take 1 step at a time. 4. VERN hose are to be worn for 30 days or until physician discontinues. 5. Heart hugger is to be worn 100% of the time until physician discontinues.(except when showering) 6. No lifting, pushing, or pulling more than 10 pounds for 12 weeks. The physician will advise of any restriction changes. 7. The patient is expected to continue the prescribed walking program. 8. Continue pain control per as needed orders. 9. Continue with incentive spirometry and splinting/heart hugger until otherwise directed by the physician. 10. Must shower daily using liquid antibacterial soap and a separate white washcloth for each individual incision. 11. Routine sternal incision care. No powders, lotions, ointments on incisions. No dressings are necessary on incisions unless they are draining. Dermabond tape is to remain on sternal incision until surgeon follow-up. 12. Please call surgeon/TUTORIAL LABORATORY SUPERVISOR for temp greater than 101 F or purulent drainage from incisions. 13. All prescriptions given by surgeon for 30 days. Refills need to be filled through data entry analyst/primary care physician. 14. A Red armband has been placed on the patient. It should be worn for 30 days post surgery and will be removed by the cardiac surgeons. If an ER visit is necessary, please make sure the number on the Red armband is called. 15. You have been referred to and are expected to begin Cardiac Rehab in approximately 4-6 weeks. HOME HEALTH SERVICES TO PROVIDE: RN SKILLED HOME CARE SERVICES FOR POST-OP SURGICAL PATIENTS WITH THE FOLLOWING: Coronary Artery Bypass Surgery (CABG), Mitral Valve Replacement /Repair ( MVR), Aortic Valve Replacement/Repair (AVR) RN TO CONTINUE EDUCATION FROM ``ROAD TO A HEALTH HEART PATIENT EDUCATION MANUAL (GIVEN TO PATIENT IN THE HOSPITAL) MEDICATION RECONCILIATION WITH EDUCATION NEEDED ON FIRST HOME VISIT EMPHASIZE IMPORTANCE OF WEARING BREAST SUPPORT/HEART HUGGER ENCOURAGE USE OF INCENTIVE SPIROMETER 10 X EVERY HOUR WHILE AWAKE ENCOURAGE UTILIZATION OF LOWER EXTREMITY COMPRESSION STOCKINGS/VERN HOSE and ELEVATE LEGS ABOVE LEVEL OF HEART WHILE AT REST. ENCOURAGE AMBULATION 3-5x/day INCREASING TOLERATES, WHILE AVOIDING EXTREMES IN TEMPERATURE FREQUENCY: RN TO OPEN THE PATIENT WITHIN 24 HOURS OF DISCHARGE FROM THE HOSPITAL WITH TELEHEALTH INSTALLED AT [facility] [place], RN TO VISIT 2-3 X A WEEK FOR 4 WEEKS ESTABLISHED BY PATIENT NEEDS. LABORATORY: CBC, CMP TO BE DRAWN ON THE THIRD DAY HOME, (RAN STAT) FAX RESULTS TO [phone]. TELEHEALTH PARAMETERS: WEIGHT: NOTIFY MD OF WEIGHT GAIN OF 2 LBS IN 24 HOURS OR 5 LBS IN ONE WEEK HR: NOTIFY MD OF HR <55 BPM OR HR>100 BPM BP: NOTIFY MD IF BP <90/55 OR BP>140/100 O2 SAT: NOTIFY MD IF PO2<93% ON ROOM AIR SEND TELEHEALTH REPORT TO FRONT END DEVELOPER DESIGNER AND CARDIOVASCULAR SURGEON THE FIRST WEEK OF CARE AND THEN BI-WEEKLY. PLEASE ADDITIONALLY COMMUNICATE ANY ABNORMALS AND NEW FINDINGS TO THE SURGEONS OFFICE. Discharge Disposition: HOME WITH HOME HEALTH SERVICES
--- NOTE | 2021-08-02 14:51 | PN ---
PROGRESS NOTE Mr. Conley is status post an aortocoronary bypass surgery. He is doing well fairly decent performance on incentive spirometry. He does have a left pleural effusion and an ultrasound is being performed and there is a possibility he may have thoracentesis. However, at the time of my evaluation, he is resting comfortably, has no chest pain or shortness of breath. His breathing seems to be fairly decent. We will continue current medications, increase activity and based on findings of ultrasound, he may have thoracenteses. Advised to continue incentive spirometry, pulmonary toilet, same medical regimen and upon discharge he will follow up with Dr. Veronica. Vital signs stable. Patient is in sinus rhythm. There is JVD not significant. S1-S2 heard normally. Short systolic murmur. Lungs revealed decent air entry with diminished breath sounds on the left side at the base. Abdomen is soft, nontender. Lower extremities reveal diminished pulses. Central nervous system grossly no focal deficits. From a cardiac standpoint, same medical regimen. Await the ultrasound and possible thoracentesis. MMODL / IJN: [id number] /
--- NOTE | 2021-08-02 14:55 | US ---
EXAMINATION TYPE: US chest DATE OF EXAM: 08/02/2021 COMPARISON: NONE CLINICAL HISTORY: possible thoracentesis. pleural effusion TECHNIQUE: Targeted ultrasound of the posterior lower bilateral hemithoraces EXAM MEASUREMENTS: Right Pleural Effusion pocket size: 2.0 cm Right skin surface to fluid distance: 2.8 cm Left Pleural Effusion pocket size: 6.7 cm Left skin surface to fluid distance: 3.2 cm Right side NOT marked for possible thoracentesis outside the dept. Left side marked for possible thoracentesis outside the dept. Pulmonologists are able to review the images in the patient?s EMR. IMPRESSIONS: Small bilateral pleural effusion
--- NOTE | 2021-08-02 18:58 | P.PN ---
Subjective Progress Note Date: 08/02/21 This is a 71-year-old male patient of Dr. Holland who was found to have coronary artery disease. Patient was recently evaluated for chest pain and was found to have an acute ST elevated [place] in which he underwent stenting of the OM and at that time a catheterization also showed significant left main disease with triple-vessel involvement and he was referred to undergo coronary artery bypass graft surgery. Patient underwent coronary artery bypass graft surgery with four-vessel bypass on 07/28/[address] sibley. Additional medical history includes hernia and prostate disorder. Patient is currently postop day 2 resting comfortably in the intensive care unit. Patient currently off all drips chest tubes remain in place. Patient reports some mild discomfort to surgical site with activity. Patient denies any significant chest pain or shortness breath. Patient denies nausea vomiting or diarrhea. Patient denies any urinary burning or frequency. On 07/31/2021 patient was seen and examined on the telemetry floor, he is alert and oriented 3 in no apparent distress, he was able to walk in the hallway today, there is no fever or chills no headache or dizziness no chest pain no shortness of breath he has occasional cough no nausea or vomiting no abdominal pain no diarrhea and no urinary symptoms, temperature 97.8 pulse 107 respiration 18 blood pressure 125/57 white blood count 16.6 hemoglobin 9.7 platelet count 201 glucose level 128 BUN 20 creatinine 1.04 08/01/2021 patient's alert and oriented 3. Medications adjusted per cardio thoracic. Cardizem added. Per cardiothoracic will monitor patient for 24 hours of hospital DC'd home tomorrow. Chest tubes have been removed. Patient denies any chest pain. Patient denies shortness breath. Patient denies nausea vomiting or diarrhea. On 08/02/2021 patient was seen and examined on the medical floor he is alert and oriented 3 in no apparent distress there is no fever or chills no headache or dizziness no chest pain no shortness of breath no cough no nausea or vomiting no abdominal pain no diarrhea no blood in the stools no burning with urination no frequency or urgency and no hematuria. Plan for thoracic surgery is for di tysonrgiorgio to home today. Objective - Vital Signs Vital signs: Vital Signs Temp 97.9 F 08/02/21 09:26 Pulse 97 08/02/21 09:26 Resp 18 08/02/21 09:26 BP 106/62 08/02/21 09:26 Pulse Ox 95 08/02/21 09:26 Intake & Output 08/01/21 08/02/21 08/02/21 18:59 06:59 18:59 Intake Total 128 130 Balance 128 130 Weight 89.811 kg Intake: IV 10 10 Invasive Line 2 10 10 Oral 118 120 Other: Voiding Method Urinal Urinal Urinal # Voids 1 1 1 # Bowel Movements 1 ABP, PAP, CO, CI - Last Documented Arterial Blood Pressure 100/48 Pulmonary Artery Pressure 20/10 Cardiac Output 4.9 Cardiac Index 2.3 - Exam Head normocephalic Neck supple Lungs clear to auscultation bilaterally no wheezing or crackles. Chest tubes remain in place Heart regular rate and rhythm S1-S2, no rub or gallop Abdomen is soft nontender nondistended positive bowel sounds no hepatosplenomegaly Extremities no edema Neuro alert and orientated to 3 - Labs CBC & Chem 7: 08/02/21 07:38 08/02/21 07:38 Labs: Abnormal Lab Results - Last 24 Hours (Table) 08/01/21 08/01/21 08/01/21 Range/Units 11:34 11:34 11:47 WBC 13.9 H (3.8-10.6) k/uL RBC 3.13 L (4.30-5.90) m/uL Hgb 9.8 L (13.0-17.5) gm/dL Hct 28.2 L (39.0-53.0) % Sodium 136 L (137-145) mmol/L BUN 21 H (9-20) mg/dL Glucose 122 H (74-99) mg/dL POC Glucose (mg/dL) 129 H (75-99) mg/dL 08/01/21 08/01/21 08/02/21 Range/Units 16:43 20:52 02:29 WBC (3.8-10.6) k/uL RBC (4.30-5.90) m/uL Hgb (13.0-17.5) gm/dL Hct (39.0-53.0) % Sodium (137-145) mmol/L BUN (9-20) mg/dL Glucose (74-99) mg/dL POC Glucose (mg/dL) 147 H 135 H 135 H (75-99) mg/dL 08/02/21 08/02/21 08/02/21 Range/Units 06:30 07:38 07:38 WBC 10.7 H (3.8-10.6) k/uL RBC 3.05 L (4.30-5.90) m/uL Hgb 9.4 L (13.0-17.5) gm/dL Hct 28.3 L (39.0-53.0) % Sodium 136 L (137-145) mmol/L BUN (9-20) mg/dL Glucose 158 H (74-99) mg/dL POC Glucose (mg/dL) 115 H (75-99) mg/dL Assessment and Plan Assessment: 1. Status post coronary artery bypass graft surgery with Dr. sibley four-vessel on 07/28/2021. Patient is currently postop day 4 2. Known history of coronary artery disease with previous stemi 3. History of hyperlipidemia 4. History of BPH 5. Urinary tract infection positive for group D enterococcus. Per critical care note plans to start Bactrim per cardiothoracic surgery Thank you for this consultation we'll continue to follow patient closely throughout stay
== END 2021-08-02 14:30 | disposition home health service (06) | DRG 235 ==
LOC: 2ORMAIN 07-28 05:36 → 2SICU 07-28 13:45 → 3SCARD 07-30 16:46
PROVIDERS: ADMIT Surgery; ATTEND Surgery
PROC: 02L70CK Occlusion of Left Atrial Appendage with Extraluminal Device, Open Approach (ICD-10-PCS; principal; 2021-07-28 08:00)
PROC: 021109W Bypass Coronary Artery, Two Arteries from Aorta with Autologous Venous Tissue, Open Approach (ICD-10-PCS; principal; 2021-07-28 08:00)
PROC: 02100AW Bypass Coronary Artery, One Artery from Aorta with Autologous Arterial Tissue, Open Approach (ICD-10-PCS; principal; 2021-07-28 08:00)
PROC: 06BQ4ZZ Excision of Left Saphenous Vein, Percutaneous Endoscopic Approach (ICD-10-PCS; principal; 2021-07-28 08:00)
PROC: 02100Z9 Bypass Coronary Artery, One Artery from Left Internal Mammary, Open Approach (ICD-10-PCS; principal; 2021-07-28 08:00)
PROC: 03BC4ZZ Excision of Left Radial Artery, Percutaneous Endoscopic Approach (ICD-10-PCS; principal; 2021-07-28 08:00)
PROC: B246ZZ4 Ultrasonography of Right and Left Heart, Transesophageal (ICD-10-PCS; principal; 2021-07-28 08:00)
PROC: 5A1221Z Performance of Cardiac Output, Continuous (ICD-10-PCS; principal; 2021-07-28 08:00)
DX: I25.10 Atherosclerotic heart disease of native coronary artery without angina pectoris (principal); J96.01 Acute respiratory failure with hypoxia; J90 Pleural effusion, not elsewhere classified; J93.9 Pneumothorax, unspecified; N39.0 Urinary tract infection, site not specified; D62 Acute posthemorrhagic anemia; D69.6 Thrombocytopenia, unspecified; Z20.822 Contact with and (suspected) exposure to COVID-19; I10 Essential (primary) hypertension; R05.3 Chronic cough; N40.0 Benign prostatic hyperplasia without lower urinary tract symptoms; B95.2 Enterococcus as the cause of diseases classified elsewhere; E78.2 Mixed hyperlipidemia; I25.2 Old myocardial infarction; T78.49XA Other allergy, initial encounter; R97.20 Elevated prostate specific antigen [PSA]; Z79.82 Long term (current) use of aspirin; Z79.02 Long term (current) use of antithrombotics/antiplatelets; Z79.899 Other long term (current) drug therapy; Z95.5 Presence of coronary angioplasty implant and graft; Z87.19 Personal history of other diseases of the digestive system; Z90.79 Acquired absence of other genital organ(s); Z98.890 Other specified postprocedural states; Z71.3 Dietary counseling and surveillance; Z82.49 Family history of ischemic heart disease and other diseases of the circulatory system; Z81.2 Family history of tobacco abuse and dependence; Z80.8 Family history of malignant neoplasm of other organs or systems
CPT/HCPCS: 71045; 71046; 76604; 80048; 80053; 82330; 82805; 83735; 85025; 85027; 85384; 85520; 85610; 85730; 86850; 86891; 86900; 86901; 86920; 87077; 87086; 87186; 87635; 94002; 94640; 94760

== ENCOUNTER → 2021-08-13 | Outpatient (CLI) | payer MEDICARE ==
[2021-08-13 14:37] LABS: Appearance,Urine Cloudy (Clear); Bacteria,Urine Occasional /hpf; Bilirubin,Urine Negative (Negative); Blood,Urine Trace (Negative); Color,Urine Yellow; Glucose,Urine (UA) Negative (Negative); Ketones,Urine Negative (Negative); Leukocyte Esterase,Urine Large (Negative); Mucus,Urine Rare /hpf; Nitrite,Urine Negative (Negative); Protein,Urine Trace (Negative); RBC,Urine 21 /hpf (0-5); Specific Gravity,Urine 1.019 (1.001-1.035); Urobilinogen,Urine <2.0 mg/dL (<2.0); WBC,Urine >182 /hpf (0-5)
[2021-08-13 18:20] LABS: Basophils # (A) 0.07 X 10*3/uL (0.00-0.10); Basophils % (A) 0.9 %; Eosinophils # (A) 0.58 X 10*3/uL (0.04-0.35); Eosinophils % (A) 7.2 %; HCT 33.9 % (39.6-50.0); HGB 10.1 g/dL (13.0-17.0); Lymphocytes % (A) 14.9 %; MCH 28.2 pg (27.0-32.0); MCHC 29.8 g/dL (32.0-37.0); MCV 94.7 fL (80.0-97.0); Mean Platelet Volume 9.6 fL (9.5-12.2); Monocytes # (A) 0.74 X 10*3/uL (0.20-1.00); Monocytes % (A) 9.2 %; Neutrophils # (A) 5.46 X 10*3/uL (1.80-7.70); Neutrophils % (A) 67.4 %; Platelet Count 584 X 10*3/uL (140-440); RBC 3.58 X 10*6/uL (4.40-5.60); RDW 14.5 % (11.5-14.5); WBC 8.08 X 10*3/uL (4.50-10.00)
== END | disposition home or self-care (01) ==
LOC: LABWHC1 13:05
PROVIDERS: ATTEND Surgery
DX: Z09 Encounter for follow-up examination after completed treatment for conditions other than malignant neoplasm (principal); Z98.890 Other specified postprocedural states
CPT/HCPCS: 36415; 81001; 85025; 87077; 87086; 87186

== ENCOUNTER → 2021-09-03 | Outpatient (CLI) | payer MEDICARE ==
[2021-09-03 17:29] LABS: ALT 20 U/L (10-49); AST 15 U/L (14-35); African American GFR (CKD) 57.7 (60.0-200.0); Albumin 4.3 g/dL (3.8-4.9); Albumin/Globulin Ratio 1.92 (1.60-3.17); Alkaline Phosphatase 98 U/L (41-126); BUN/Creat Ratio 11.13 Ratio (12.00-20.00); Blood Urea Nitrogen 15.7 mg/dL (9.0-27.0); Calcium 9.6 mg/dL (8.7-10.3); Carbon Dioxide 22.9 mmol/L (20.0-27.5); Chloride 104 mmol/L (96-109); Chol/HDL Ratio 3.51 Ratio; Globulin 2.3 g/dL (1.6-3.3); Glucose 96 mg/dL (70-110); LDL Cholesterol,Calculated 87.9 mg/dL (0.0-131.0); Non-African American GFR(CKD) 49.8 (60.0-200.0); Potassium 4.9 mmol/L (3.5-5.5); Sodium 141 mmol/L (135-145); Total Protein 6.6 g/dL (6.2-8.2)
== END | disposition home or self-care (01) ==
LOC: LABWHC1 10:00
PROVIDERS: ATTEND Internal Medicine Interventional Cardiology
DX: E78.2 Mixed hyperlipidemia (principal); I48.3 Typical atrial flutter
CPT/HCPCS: 36415; 80053; 80061; 84443

== ENCOUNTER → 2021-09-09 | Day surgery (SDC) | payer MEDICARE ==
[~2021-09-09] MED LIST changes: +AMIODARONE 200 MG TAB PO SCH; -AMPICILLIN 1,000 MG in SODIUM CHLORIDE 0.9% 50 ML IVPB ONE; +APIXABAN 5 MG TAB PO SCH; +ASPIRIN 81 MG PO SCH; +ATORVASTATIN 40 MG TAB PO SCH; -DEXAMETHASONE SOD PHOSPHATE 10 MG/ML 1 ML VIAL IV ONE; +DILTIAZEM CD 120 MG CAP.ER.24H PO SCH; -GENTAMICIN 120 MG in SODIUM CHLORIDE 0.9% 100 ML IVPB ONE; -HYDROmorphone 0.5 MG/0.5 ML SYRINGE IVP PRN; +LACTATED RINGERS 1,000 ML IV ONE; -LACTATED RINGERS 1,000 ML IV SCH; -LIDOCAINE 1% 20 ML VIAL (10MG/ML) FOR IV START INTRADERMA PRN; +METOPROLOL TARTRATE 25 MG TAB PO SCH; -MIDAZOLAM 2 MG/2 ML VIAL IV PRN; -ONDANSETRON 4 MG/2 ML VIAL IVP ONE; +PROPOFOL 10 MG/ML 20 ML VIAL IV ONE; +SODIUM CHLORIDE 0.9% 1,000 ML IV SCH; -fentaNYL (PF) 50 MCG/ML 2 ML AMP IV PRN
[2021-09-09 06:41] VITALS: TEMP 98.3
[2021-09-09 07:55] VITALS: RESP 16
[2021-09-09 09:52] VITALS: BP 117/75; PULSE 58
--- NOTE | 2021-09-09 09:52 | ECHOT ---
TRANSESOPHAGEAL ECHOCARDIOGRAM INDICATION: Evaluation of intracardiac thrombus. PROCEDURE: After explaining the procedure to the patient, risks and the complications, his blood pressure, heart rate, O2 saturation was monitored. The throat was sprayed with Cetacaine. He received sedation per Anesthesia Department. The probe was introduced in the esophagus without difficulty. Images were obtained. Following that, the probe was removed there was no immediate complication. FINDINGS: The left atrial size is mildly dilated. Left atrial appendage is closed with no evidence of flow. The left ventricle size is normal. There is mild inferolateral hypokinesis ejection fraction 45-50 percent. Aortic valve, mitral valve and tricuspid valve are normal. Descending thoracic aorta appears to be normal. No pericardial effusion was noted. Contrast bubble study revealed no evidence of shunting across the interatrial septum. Doppler pulse wave and color Doppler obtained revealed mild mitral and tricuspid as well as mild aortic regurgitation. There was no shunting by color Doppler study. CONCLUSION: 1. Mildly dilated left atrium with closed left atrial appendage. 2. Normal left ventricular size with mild impairment of left ventricular systolic function. 3. Mild mitral, aortic and tricuspid regurgitation. 4. No shunting across the interatrial septum. 5. Normal appearance of the descending thoracic aorta. MMODL / IJN: [id number] /
--- NOTE | 2021-09-09 09:58 | PCN ---
PROCEDURE NOTE CARDIOVERSION PROCEDURE NOTE: INDICATION: Atrial flutter. PROCEDURE: After explaining the procedure to the patient its risks and the complications, after obtaining sedated state and transesophageal echocardiogram, a synchronized biphasic cardioversion using 100 joules was performed with nondenominational of normal sinus rhythm. There was no immediate complication. BELEM / HÉCTOR: [id number] /
== END | disposition home or self-care (01) ==
LOC: CATHCVL 05:41
PROVIDERS: ATTEND Internal Medicine Interventional Cardiology
DX: I08.3 Combined rheumatic disorders of mitral, aortic and tricuspid valves (principal); I48.3 Typical atrial flutter; I48.92 Unspecified atrial flutter; I25.10 Atherosclerotic heart disease of native coronary artery without angina pectoris; Z95.1 Presence of aortocoronary bypass graft; Z79.82 Long term (current) use of aspirin; Z79.899 Other long term (current) drug therapy; Z79.01 Long term (current) use of anticoagulants; E78.5 Hyperlipidemia, unspecified; Z87.891 Personal history of nicotine dependence
CPT/HCPCS: 93312; 93320; 93325; 92960; 87635; J2704

== ENCOUNTER → 2021-09-21 | Outpatient (CLI) | payer MEDICARE ==
[2021-09-22 01:06] LABS: ALT 22 U/L (10-49); AST 16 U/L (14-35); African American GFR (CKD) 63.6 (60.0-200.0); Albumin 4.5 g/dL (3.8-4.9); Albumin/Globulin Ratio 2.05 (1.60-3.17); Alkaline Phosphatase 85 U/L (41-126); BUN/Creat Ratio 15.08 Ratio (12.00-20.00); Blood Urea Nitrogen 19.6 mg/dL (9.0-27.0); Calcium 9.8 mg/dL (8.7-10.3); Carbon Dioxide 21.8 mmol/L (20.0-27.5); Chloride 106 mmol/L (96-109); Chol/HDL Ratio 3.36 Ratio; Globulin 2.2 g/dL (1.6-3.3); Glucose 99 mg/dL (70-110); LDL Cholesterol,Calculated 90.1 mg/dL (0.0-131.0); Non-African American GFR(CKD) 54.9 (60.0-200.0); Potassium 4.8 mmol/L (3.5-5.5); Sodium 143 mmol/L (135-145); Total Protein 6.7 g/dL (6.2-8.2)
== END | disposition home or self-care (01) ==
LOC: LABWHC1 11:06
PROVIDERS: ATTEND Nurse Practitioner Adult Health
DX: E78.2 Mixed hyperlipidemia (principal)
CPT/HCPCS: 36415; 80053; 80061

== ENCOUNTER → 2021-12-20 | Outpatient (CLI) | payer MEDICARE ==
[2021-12-20 18:26] LABS: ALT 33 U/L (10-49); AST 20 U/L (14-35); Chol/HDL Ratio 3.64 Ratio; LDL Cholesterol,Calculated 111.7 mg/dL (0.0-131.0); VLDL Calculation 16.04 mg/dL (5.00-40.00)
== END | disposition home or self-care (01) ==
LOC: LABWHC1 11:52
PROVIDERS: ATTEND Nurse Practitioner Adult Health
DX: E78.2 Mixed hyperlipidemia (principal)
CPT/HCPCS: 36415; 80061; 84450; 84460

== ENCOUNTER → 2022-07-28 | Outpatient (CLI) | payer MEDICARE ==
[2022-07-28 18:31] LABS: ALT 12 U/L (10-49); AST 20 U/L (14-35); African American GFR (CKD) 57.8 (60.0-200.0); Albumin 4.4 g/dL (3.8-4.9); Albumin/Globulin Ratio 1.47 (1.60-3.17); Alkaline Phosphatase 70 U/L (41-126); Blood Urea Nitrogen 19.6 mg/dL (9.0-27.0); Calcium 9.9 mg/dL (8.7-10.3); Carbon Dioxide 26.6 mmol/L (20.0-27.5); Chloride 105 mmol/L (96-109); Chol/HDL Ratio 4.83 Ratio; Glucose 87 mg/dL (70-110); LDL Cholesterol,Calculated 167.7 mg/dL (0.0-131.0); Non-African American GFR(CKD) 49.8 (60.0-200.0); Sodium 142 mmol/L (135-145); Total Protein 7.4 g/dL (6.2-8.2)
== END | disposition home or self-care (01) ==
LOC: LABWHC1 10:31
PROVIDERS: ATTEND Internal Medicine Interventional Cardiology
DX: E78.2 Mixed hyperlipidemia (principal)
CPT/HCPCS: 36415; 80053; 80061

== ENCOUNTER → 2022-12-12 | Outpatient (CLI) | payer MEDICARE ==
[2022-12-12 19:07] LABS: ALT 39 U/L (10-49); AST 24 U/L (14-35); African American GFR (CKD) 53.1 (60.0-200.0); Albumin 4.5 g/dL (3.8-4.9); Albumin/Globulin Ratio 1.88 (1.60-3.17); Alkaline Phosphatase 78 U/L (41-126); BUN/Creat Ratio 16.13 Ratio (12.00-20.00); Blood Urea Nitrogen 24.2 mg/dL (9.0-27.0); Calcium 9.8 mg/dL (8.7-10.3); Chloride 106 mmol/L (96-109); Chol/HDL Ratio 3.16 Ratio; Globulin 2.4 g/dL (1.6-3.3); Glucose 92 mg/dL (70-110); LDL Cholesterol,Calculated 71.5 mg/dL (0.0-131.0); Non-African American GFR(CKD) 45.9 (60.0-200.0); Potassium 4.7 mmol/L (3.5-5.5); Sodium 143 mmol/L (135-145); Total Protein 6.9 g/dL (6.2-8.2)
== END | disposition home or self-care (01) ==
LOC: LABWHC1 12:22
PROVIDERS: ATTEND Internal Medicine Interventional Cardiology
DX: I10 Essential (primary) hypertension (principal); E78.2 Mixed hyperlipidemia
CPT/HCPCS: 36415; 80053; 80061

== ENCOUNTER → 2023-07-12 | Outpatient (CLI) | payer MEDICARE ==
[2023-07-12 19:14] LABS: ALT 28 U/L (10-49); AST 21 U/L (14-35); Albumin 4.5 d/dL (3.8-4.9); Albumin/Globulin Ratio 1.88 Ratio (1.60-3.17); Alkaline Phosphatase 72 U/L (41-126); Blood Urea Nitrogen 16.2 mg/dL (9.0-27.0); Calcium 10.1 mg/dL (8.7-10.3); Carbon Dioxide 27.7 mmol/L (21.6-31.8); Chloride 107 mmol/L (96-109); Globulin 2.4 d/dL (1.6-3.3); Glucose 82 mg/dL (70-110); LDL Cholesterol,Calculated 57.6 mg/dL (0.0-131.0); Potassium 5.2 mmol/L (3.5-5.5); Sodium 145 mmol/L (135-145); Total Bilirubin 0.9 mg/dL (0.3-1.2); Total Protein 6.9 d/dL (6.2-8.2)
== END | disposition home or self-care (01) ==
LOC: LABWHC1 13:21
PROVIDERS: ATTEND Internal Medicine Interventional Cardiology
DX: I48.3 Typical atrial flutter (principal); E78.2 Mixed hyperlipidemia
CPT/HCPCS: 36415; 80053; 80061

== ENCOUNTER → 2023-12-27 | Outpatient (CLI) | payer MEDICARE | END | disposition home or self-care (01) | LOC: LABWHC1 14:27 | PROVIDERS: ATTEND Urology | DX: R97.20 Elevated prostate specific antigen [PSA] (principal) | CPT/HCPCS: 36415; 84153 ==

== ENCOUNTER → 2024-01-08 | Outpatient (CLI) | payer MEDICARE ==
[2024-01-09 03:52] LABS: ALT 45 U/L (10-49); AST 28 U/L (14-35); Chol/HDL Ratio 3.15 Ratio; LDL Cholesterol,Calculated 74.1 mg/dL (0.0-131.0); VLDL Calculation 18.02 mg/dL (5.00-40.00)
== END | disposition home or self-care (01) ==
LOC: LABWHC1 16:05
PROVIDERS: ATTEND Internal Medicine Interventional Cardiology
DX: E78.2 Mixed hyperlipidemia (principal)
CPT/HCPCS: 36415; 80061; 84450; 84460

== ENCOUNTER → 2024-07-02 | Outpatient (CLI) | payer MEDICARE ==
[2024-07-03 02:59] LABS: ALT 28 U/L (10-49); AST 27 U/L (14-35); Albumin 4.4 g/dL (3.8-4.9); Alkaline Phosphatase 73 U/L (41-126); BUN/Creat Ratio 16.36 Ratio (12.00-20.00); Blood Urea Nitrogen 22.9 mg/dL (9.0-27.0); Calcium 9.6 mg/dL (8.7-10.3); Carbon Dioxide 24.2 mmol/L (21.6-31.8); Chloride 109 mmol/L (96-109); Globulin 2.1 g/dL (1.6-3.3); Glucose 90 mg/dL (70-110); LDL Cholesterol,Calculated 67.7 mg/dL (0.0-131.0); Potassium 4.4 mmol/L (3.5-5.5); Sodium 144 mmol/L (135-145); Total Bilirubin 1.2 mg/dL (0.3-1.2); Total Protein 6.5 g/dL (6.2-8.2); VLDL Calculation 11.14 mg/dL (5.00-40.00)
== END | disposition home or self-care (01) ==
LOC: LABWHC1 16:22
PROVIDERS: ATTEND Internal Medicine Interventional Cardiology
CPT/HCPCS: 36415; 80053; 80061

== ENCOUNTER → 2024-12-31 | Outpatient (CLI) | payer MEDICARE ==
[2024-12-31 15:27] LABS: ALT 28 U/L (10-49); AST 27 U/L (14-35); Albumin 4.3 g/dL (3.8-4.9); Albumin/Globulin Ratio 1.79 Ratio (1.60-3.17); Alkaline Phosphatase 81 U/L (41-126); BUN/Creat Ratio 14.36 Ratio (12.00-20.00); Blood Urea Nitrogen 20.1 mg/dL (9.0-27.0); Calcium 9.7 mg/dL (8.7-10.3); Carbon Dioxide 23.8 mmol/L (21.6-31.8); Chloride 105 mmol/L (96-109); Chol/HDL Ratio 3.99 Ratio; Globulin 2.4 g/dL (1.6-3.3); Glucose 105 mg/dL (70-110); Potassium 4.4 mmol/L (3.5-5.5); Sodium 141 mmol/L (135-145); Total Bilirubin 1.4 mg/dL (0.3-1.2); Total Protein 6.7 g/dL (6.2-8.2)
== END | disposition home or self-care (01) ==
LOC: LABWHC1 11:48
PROVIDERS: ATTEND Internal Medicine Interventional Cardiology
DX: E78.2 Mixed hyperlipidemia (principal)
CPT/HCPCS: 36415; 80053; 80061

== ENCOUNTER → 2025-01-23 | Outpatient (CLI) | payer MEDICARE | END | disposition home or self-care (01) | LOC: LABWHC1 09:51 | PROVIDERS: ATTEND Urology | DX: C61 Malignant neoplasm of prostate (principal) | CPT/HCPCS: 36415; 84153 ==